=== PATIENT | male | born 1960 | race Caucasian/White ===

== ENCOUNTER 2024-07-20 10:43 | Outpatient (CLI) | payer MEDICARE, OTHER, SELFPAY ==
--- NOTE | ~2024-07-20 | XR_ITS ---
XR abdomen/kub 1V Ordering provider: Terrance Li MD History: . Calcium kidney stone . Comparison: None. FINDINGS: BOWEL: Nonobstructive bowel gas pattern. ORGANOMEGALY: None. SIGNIFICANT PATHOLOGIC CALCIFICATIONS: Multiple left kidney stones. OTHER: No free air is seen under the diaphragm. IMPRESSION: NO ACUTE ABDOMINAL FINDINGS. Left kidney stones. Reviewed, dictated and finalized at location A.
--- OUTSIDE RECORDS SUMMARY | 2024-07-20 11:08 | XMS_ITS | Data Portability ---
Author Organization [place] - [facility] OFFICE Address [address] [place] [id number] Care Team Providers Care Tube Test Technician Name Role Phone NORA PETTIT, [facility] Primary Care Provider [phone] Assessment No assessment recorded. Plan of Treatment Reminders Order Date Submit Date Provider Last Modified By Organization Details Last Modified Time Details Appointments ESTABLI SHED PATIENT DETAILE D 2024 02:00P M Pop Edwards i, MD Not available Not available Not available Lab None recorde d. Referral None recorde d. Procedures None recorde d. Surgeries None recorde d. Imaging electro cardiog kvng 2020 021 RADHA Not available 11/18/2020 16:31:16 electro cardiog kvng 2020 021 [email or web address] Not available 11/03/2020 15:48:11 Medication Orders rosuvas tatin 10 mg tablet 2022 023 [facility] [address] [place] [address], [id number], 05/29/2022 15:15:20 lisinop ril 20 mg tablet 2020 021 RADHA [facility], [address] [place] [address], [id number], 11/03/2020 16:03:15 pravast atin 80 mg tablet 2020 021 [facility] [address] [place] [address], [id number], 08/06/2023 16:15:01 Patient TargetsNo targets recorded. Patient Instructions Encounter Date Encounter Id Patient Instructions Last Modified By Organization Details Last Modified Time 11/03/2020 [id number] arthritis: care instructions [email or web address] Not available 11/03/2020 15:48:12 osteoarthritis: care instructions [email or web address] Not available 11/03/2020 15:48:11 high blood pressure: care instructions [email or web address] Not available 11/03/2020 15:48:12 learning about high blood pressure [email or web address] Not available 11/03/2020 15:48:11 heart murmur: care instructions [email or web address] Not available 11/03/2020 15:48:12 high cholesterol: care instructions [email or web address] Not available 11/03/2020 15:48:12 12/15/2022 [id number] Exercise advised Low cholesterol diet advised Low sodium diet advised. [email or web address] Not available 12/15/2022 14:17:34 08/06/2023 [id number] Exercise advised Low cholesterol diet advised Low sodium diet advised. [email or web address] Not available 08/06/2023 16:14:47 Reason for Referral None Reported. Results Created Date Observation Date Name Description Value Unit Range Abnormal Flag Note LastModifiedBy Organization Detail LastModifiedTime 11/04/1911/03/2020 elect rocmariposa escamillagr am No observ ation record ed. colleen Hawthorne0 [facility] [address], [place], [address], 11/18/2020 16:31:16 11/04/19 21 11/03/2020 elect sridhar roper am No observ ation record ed. colleen [address], [place], [address], 11/18/2020 18:13:10 12/09/19 21 11/03/2020 elect sridhar diogr am No observ ation record ed. [email or web address] Not Available 2020 10:45:59 12/09/19 21 11/03/2020 elect rocar diogr am No observ ation record ed. [email or web address] Not Available 2020 10:53:01 12/01/19 22 11/28/2021 elect rocar diogr am No observ ation record ed. [email or web address] Not Available 2021 14:58:39 12/27/19 22 12/18/2021 exerc rah reed s echoc ardio gram No observ ation record ed. [email or web address] Not Available 2021 13:18:41 05/31/19 23 05/29/2022 elect rocar diogr am No observ ation record ed. [email or web address] Not Available 2022 14:12:42 12/26/19 23 12/15/2022 elect rocar diogr am No observ ation record ed. [email or web address] Not Available 2022 15:11:48 08/08/19 24 08/06/2023 elect rocar diogr am No observ ation record ed. [email or web address] Not Available 12:18:22 Result Notes Documentation Provider Name and Address Organization Details Recorded Time Lipid Panel, Blood : 07/17/23:Na 143,K 4.1,CL 104,CO2 24,GLU 102,BUN 22,Cr 1.07,AST 15,ALT 19,CK 79. 07/17/23:TC 132,TG 43,HDL 56,LDL 66. Anahi chavarria [place] [facility] 07/18/2023 13:30:57 Problems Name Problem SNOMED Code Status Onset Date Resolution Date Notes Provider Name and Address Organization Details Recorded Time Heart murmur 41694869 Active 2015 Anahi chavarria [place] - [facility] 6 16:37:10 Hiatal hernia 97057290 Active 2015 Donna chavarria [place] [facility] 6 04:26:28 Gastroesophage al reflux disease 104201966 Active 2015 Anahi chavarria [place] [facility] 6 16:36:56 Benign prostatic hyperplasia 860469333 Active 2015 Donna chavarria [place] [facility] 6 04:26:43 Essential hypertension 89367805 Active 2015 Anahi chavarria [place] [facility] 6 16:37:03 [facility] 27107824 [facility] [place] 6 15:27:22 Osteoarthritis 660744614 [facility] [place] 8 15:14:33 Problem Notes None recorded. Procedures Surgical History Date Name Laterality Status Provider Name and Address Organization Details Recorded Time Removal of sperm duct(s) completed [facility] 10/16/2015 16:37:39 Fragmenting of kidney stone completed Christian [facility] 10/16/2015 16:37:52 Imaging Results Imaging Date Name Status LastModified by Organization Details LastModified Time 11/03/2020 electrocardiogram completed colleen Mancera MD [address] [facility] [address], [place], [address], 11/18/2020 16:31:16 11/03/2020 electrocardiogram completed colleen Mancera MD [address] [facility] [address], [place], [address], 11/18/2020 18:13:10 11/03/2020 electrocardiogram completed [email or web address] Informa tion not available 12/09/2020 10:45:59 11/03/2020 electrocardiogram completed [email or web address] Informa tion not available 12/09/2020 10:53:01 11/28/2021 electrocardiogram completed Informa tion not available 11/30/2021 14:58:39 12/18/2021 exercise stress echocardiogram completed [email or web address] Information not available 12/26/2021 13:18:41 05/29/2022 electrocardiogram completed Informa tion not available 2022 14:12:42 12/15/2022 electrocardiogram completed Informa tion not available 12/25/2022 15:11:48 08/06/2023 electrocardiogram completed [email or web address] Info rmation not available 08/08/2023 12:18:22 Procedure Notes None recorded. Medical Equipment None Reported. Allergies No known drug allergies Medications Name Sig Start Date Stop Date Status Note LastModified by Organization Details LastModified Time cyclobenza josephine 10 mg tablet active PRN Not Available Not Available No t Available pravastati n 40 mg tablet Take 1 tablet every day by oral route as directed for 1 day. 11/28 completed Not Available Not Available Not Available benzonatat e 200 mg capsule 11/28 completed Not Available Not Available Not Available hydrocodon e 5 mg-acetami nophen 325 mg tablet 11/27 completed pt. not taking Not Available Not Available Not Available lisinopril 20 mg tablet TAKE 1 TABLET BY MOUTH DAILY FOR BLOOD PRESSURE active Not Available Not Available No t Available Viagra 50 mg tablet Take 1 tablet every day by oral route as needed. 11/29 completed Not Available Not Available Not Available penicillin V potassium 500 mg tablet 11/28 completed pt. not taking Not Available Not Available Not Available Nexium 40 mg capsule,de layed release Take 1 capsule every day by oral route as directed for 90 days. 11/29 completed Not Available Not Available Not Available omeprazole 40 mg capsule,de layed release TAKE 1 CAPSULE BY MOUTH DAILY 30 TO 60 MINUTES BEFORE A MEAL active Not Available Not Available No t Available sildenafil 100 mg tablet 1 tab prn active Not Available Not Available No t Available ondansetro n 8 mg disintegra ting tablet 11/28 completed Not Available Not Available Not Available Nexium 20 mg capsule,de layed release Take 1 capsule every day by oral route. 11/01 completed Not Available Not Available Not Available Aspirin Low Strength 81 mg chewable tablet Chew 1 tablet every day by oral route. 08/04 completed Not Available Not Available Not Available pravastati n 80 mg tablet Take 1 tablet every day by oral route at bedtime. 08/05 completed Not Available Not Available Not Available tamsulosin 0.4 mg capsule TAKE 1 CAPSULE BY MOUTH EVERY DAY active Not Available Not Available No t Available pantoprazo le 40 mg tablet,del ayed release 1 tab qd 11/28 completed Not Available Not Available Not Available Gas Relief (simethico ne) 80 mg chewable tablet 11/28 completed Not Available Not Available Not Available lisinopril 10 mg tablet Take 1 tablet every day by oral route. 11/01 completed Not Available Not Available Not Available fluticason e propionate 50 mcg/actuat ion nasal spray,susp ension Inhale by nasal route for 30 days. active Not Available Not Available No t Available naproxen 500 mg tablet 11/01 completed PRN Not Available Not Available Not Available rosuvastat in 10 mg tablet TAKE 1 TABLET BY MOUTH DAILY FOR CHOLESTE ROL active Not Available Not Available No t Available [place] Sinus Rinse with packet 11/29 completed Not Available Not Available Not Available Mucinex D 60 mg-600 mg tablet,ext ended release 11/28 completed as needed Not Available Not Available Not Available Suprep Bowel Prep Kit 17.5 gram-3.13 gram-1.6 gram oral solution 11/28 completed Not Available Not Available Not Available Fluzone Quad 0157-3528 60 mcg (15 mcg x 4)/0.5 mL IM suspension 11/29 completed Not Available Not Available Not Available Fluzone Quad 60 mcg (15 mcg x 4)/0.5 mL IM suspension 11/28 completed Not Available Not Available Not Available Shingrix (PF) 50 mcg/0.5 mL intramuscu lar suspension , kit 11/27 completed Not Available Not Available Not Available Adult Aspirin Regimen 81 mg tablet,del ayed release Take 1 tablet every day by oral route. active Not Available Not Available No t Available Fluzone Quad 60 mcg (15 mcg x 4)/0.5 mL IM suspension 11/28 completed Not Available Not Available Not Available Afluria Quad 60 mcg (15 mcg x 4)/0.5 mL intramuscu lar susp. 11/28 completed Not Available Not Available Not Available Flublok Quad (PF) 180 mcg (45 mcg x 4)/0.5 mL IM syringe PHARMACY ADMINIST ERED 11/28 completed Not Available Not Available Not Available Vitals Date Recorded Body weight Heart rate Oxygen saturation Oxygen saturation in Arterial blood by Pulse oximetry Systolic blood pressure Diastolic blood pressure Provider Name and Address Organization Details Last Updated DateTime 1 38931.0 3 g 67 /min 97 % 97 % 122 mm[Hg] 61 mm[Hg] CIRSTINE JOHNSON [place] [facility] 1 12:41:02 Date Recorded Body height Body mass index (BMI) Body weight Heart rate Respiratory rate Oxygen saturation Oxygen saturation in Arterial blood by Pulse oximetry Systolic blood pressure Diastolic blood pressure Provider Name and Address Organization Details Last Updated DateTime 2 172.72 cm 25.8 kg/m2 63702.7 g 77 /min 16 /min 98 % 98 % 112 mm[Hg] 60 mm[Hg] Germán Jain [facility] 2 17:16:43 Date Recorded Body height Body mass index (BMI) Body weight Heart rate Respiratory rate Oxygen saturation Oxygen saturation in Arterial blood by Pulse oximetry Systolic blood pressure Diastolic blood pressure Provider Name and Address Organization Details Last Updated DateTime 3 172.72 cm 27.4 kg/m2 59273.6 3 g 69 /min 16 /min 97 % 97 % 124 mm[Hg] 82 mm[Hg] Germán Jain [facility] 3 14:59:59 Date Recorded Body height Body mass index (BMI) Body weight Heart rate Respiratory rate Oxygen saturation Oxygen saturation in Arterial blood by Pulse oximetry Systolic blood pressure Diastolic blood pressure Provider Name and Address Organization Details Last Updated DateTime 3 172.72 cm 26.5 kg/m2 75232.0 7 g 71 /min 16 /min 98 % 98 % 126 mm[Hg] 74 mm[Hg] Germán Jain [facility] 3 14:03:06 Date Recorded Body height Body mass index (BMI) Body weight Heart rate Oxygen saturation Oxygen saturation in Arterial blood by Pulse oximetry Systolic blood pressure Diastolic blood pressure Provider Name and Address Organization Details Last Updated DateTime 4 172.72 cm 27 kg/m2 63872.7 2 g 70 /min 98 % 98 % 112 mm[Hg] 68 mm[Hg] Cori Fall [facility] 4 15:56:28 Social History Question Answer Notes LastModified by Organizat ion Details LastModified Time Tobacco Smoking Status Never Smoker Not Available [facility] 01/12/2020 03:30:18 What Was The Date Of Your Most Recent Tobacco Screening? 11/29/2016 [id number] Information not available 01/12/2020 How Much Tobacco Do You Smoke? No [id number] Information not available 01/12/2020 How Many Years Have You Smoked Tobacco? 0 [id number] Information not available 01/12/2020 Sex: Unknown Functional Status Question Answer Note LastModified by Organizat ion Details LastModified Time Do you or have you ever used smokeless tobacco? Never used smokeless tobacco [id number] Information not available 01/12/2020 Do you or have you ever used e-cigarettes or vape? Never used electronic cigarettes [id number] Information not available 01/12/2020 Mental Status None recorded. Family History Relationship Description Onset Age of this Age Resolved Age Notes LastModified by Organization Details LastModified Time Mother Hypertensive disorder [email or web address] Not available 2015 16:41:37 Father Hypertensive disorder hmesto Not available 2015 16:41:43 Maternal Uncle Coronary arterioscler osis s/p PCI [email or web address] Not available 10/16/2015 16:42:13 Medical History Condition Response Genitourinary Disease Y Hypertension Y GERD/Reflux Y Past Encounters Encounter ID Performer Location Encounter Start Date Encounter Closed Date Diagnosis/Indication Diagnosis SNOMED-CT Code Diagnosis ICD10 Code Diagnosis Note [id number] Trenton Chávez MD [facility] [address] [place] [address] 11/02/2015 14:17:05 11/03/2015 11:00:56 Essential hypertension 91581284 I10 Patient's blood pressure is {{well-con trolled* n ot well-contr olled}} on present medical therapy. Patient is {{tolerati ng, without difficulty ,* having side effects with}} the current medication s. I have {{not made* made the following} } changes to the current regimen. {{ Patient is advised to maintain a blood pressure diary.*}} Cont low Na diet. Heart murmur 03325399 R0 1.1 pt had ECHO last year which showed trace MR and trace TR. Will repeat ECHO in one year. He does not need dental prophylaxi s. Hyperlipidemia 72972844 E78.5 Patient's hyperlipid emia is {{well-con trolled* n ot well-contr olled}} on present medical therapy. Patient is {{tolerati ng, without difficulty ,* having side effects with}} the current medication s. I have {{not made* made the following} } changes to the current regimen. Cont low cholestero l diet. [id number] Pop Farley MD [facility] [address] [place] [address] 11/29/2016 14:51:44 11/30/2016 09:51:37 Essential hypertension 86307557 I10 Patient's blood pressure is {{well-con trolled* n ot well-contr olled}} on present medical therapy. Patient is {{tolerati ng, without difficulty ,* having side effects with}} the current medication s. I have {{not made* made the following} } changes to the current regimen. {{ Patient is advised to maintain a blood pressure diary.*}} Cont low Na diet. Heart murmur 10190987 R0 1.1 His recent ECHO is similar as last year which showed trace MR and mild TR with borderline pulmonary pressure (PASP 35 mmHg).. Normal LV systolic function (LVEF 55-60%). Will repeat ECHO in two years. Hyperlipidemia 05171167 E78.5 Patient's hyperlipid emia is {{well-con trolled* n ot well-contr olled}} on present medical therapy. Patient is {{tolerati ng, without difficulty ,* having side effects with}} the current medication s. I have {{not made* made the following} } changes to the current regimen. Cont low cholestero l diet.Will repeat lipids [id number] Pop Fraley MD [facility] [place] [address] 11/28/2017 14:44:07 11/28/2017 15:37:16 Essential hypertension 61919712 I10 Patient's blood pressure is {{well-con trolled* n ot well-contr olled}} on present medical therapy. Patient is {{tolerati ng, without difficulty ,* having side effects with}} the current medication s. I have {{not made* made the following} } changes to the current regimen. {{ Patient is advised to maintain a blood pressure diary.*}} Cont low Na diet. Heart murmur 03835209 R0 1.1 His recent ECHO is similar as last year which showed trace MR and mild TR with borderline pulmonary pressure (PASP 35 mmHg).. Normal LV systolic function (LVEF 55-60%). Will repeat ECHO in two years. Hyperlipidemia 86794032 E78.5 Patient's hyperlipid emia is {{well-con trolled* n ot well-contr olled}} on present medical therapy. Patient is {{tolerati ng, without difficulty ,* having side effects with}} the current medication s. I have {{not made* made the following} } changes to the current regimen. Cont low cholestero l diet.Will repeat lipids [id number] Trenton Chávez MD [facility] [address] [place] [address] 11/27/2018 14:48:41 11/27/2018 15:56:52 Essential hypertension 49659349 I10 Patient's blood pressure is {{well-con trolled* n ot well-contr olled}} on present medical therapy. Patient is {{tolerati ng, without difficulty ,* having side effects with}} the current medication s. I have {{not made* made the following} } changes to the current regimen. {{ Patient is advised to maintain a blood pressure diary.*}} Cont low Na diet. Heart murmur 86719362 R0 1.1 His last ECHO is similar as last year which showed trace MR and mild TR with borderline pulmonary pressure (PASP 35 mmHg).. Normal LV systolic function (LVEF 55-60%). Will repeat ECHO in two years. Hyperlipidemia 72985612 E78.5 Patient's hyperlipid emia is {{well-con trolled* n ot well-contr olled}} on present medical therapy. Patient is {{tolerati ng, without difficulty ,* having side effects with}} the current medication s. I have {{not made* made the following} } changes to the current regimen. Cont low cholestero l diet. [id number] Jamila Costa MD [facility] [address] [place] [address] 11/02/2019 11:58:25 11/02/2019 12:33:21 Essential hypertension 36803160 I10 Patient's blood pressure is {{well-con trolled* n ot well-contr olled}} on present medical therapy. Patient is {{tolerati ng, without difficulty ,* having side effects with}} the current medication s. I have {{not made* made the following} } changes to the current regimen. {{ Patient is advised to maintain a blood pressure diary.*}} Cont low Na diet. Heart murmur 48210362 R0 1.1 His last ECHO is similar as last year which showed trace MR and mild TR with borderline pulmonary pressure (PASP 35 mmHg).. Normal LV systolic function (LVEF 55-60%).re peat echo before next visit Hyperlipidemia 39599619 E78.5 Patient's hyperlipid emia is {{well-con trolled* n ot well-contr olled}} on present medical therapy. Patient is {{tolerati ng, without difficulty ,* having side effects with}} the current medication s. I have {{not made* made the following} } changes to the current regimen. Cont low cholestero l diet. [id number] Trenton Chávez MD [facility] [address] [place] [address] 11/03/2020 12:07:20 11/03/2020 13:48:28 Essential hypertension 94451979 I10 Patient's blood pressure is {{well-con trolled* n ot well-contr olled}} on present medical therapy. Patient is {{tolerati ng, without difficulty ,* having side effects with}} the current medication s. I have {{not made* made the following} } changes to the current regimen. {{ Patient is advised to maintain a blood pressure diary.*}} Cont low Na diet. Hyperlipidemia 28740794 E78.5 Patient's hyperlipid emia is {{well-con trolled* n ot well-contr olled}} on present medical therapy. Patient is {{tolerati ng, without difficulty ,* having side effects with}} the current medication s. I have {{not made* made the following} } changes to the current regimen. Cont low cholestero l diet. Osteoarthritis 614061289 M19.90 Heart murmur 34719033 R0 1.1 His last ECHO is similar as last year which showed trace MR and mild TR with borderline pulmonary pressure (PASP 35 mmHg).. Normal LV systolic function (LVEF 55-60%).re peat echo before next visit [id number] Pop Farley MD [facility] [place] [address] 11/28/2021 16:55:40 11/28/2021 17:44:51 Essential hypertension 06662742 I10 Patient's blood pressure is {{well-con trolled* n ot well-contr olled}} on present medical therapy. Patient is {{tolerati ng, without difficulty ,* having side effects with}} the current medication s. I have {{not made* made the following} } changes to the current regimen. {{ Patient is advised to maintain a blood pressure diary.*}} Cont low Na diet. Hyperlipidemia 81613459 E78.5 Patient's hyperlipid emia is {{well-con trolled* n ot well-contr olled}} on present medical therapy. Patient is {{tolerati ng, without difficulty ,* having side effects with}} the current medication s. I have {{not made* made the following} } changes to the current regimen. Cont low cholestero l diet. Osteoarthritis 211507148 M19.90 Heart murmur 73228928 R0 1.1 His last ECHO is similar as last year which showed trace MR and mild TR with borderline pulmonary pressure (PASP 35 mmHg).. Normal LV systolic function (LVEF 55-60%).re peat echo before next visit Atypical chest pain 1025 41836 R07.89 Will get exercise stress echo, to look for any structural heart disease, and to look for any ischemia [id number] Pop Farley MD [facility] [place] [address] 05/29/2022 14:36:33 05/29/2022 15:19:02 Essential hypertension 54286842 I10 Now well controlled Hyperlipidemia 03063059 E78.5 LDL 91, Needs to keep LDL less than 70, and HDL more than 40.Will change to Crestor Osteoarthritis 482808731 M19.90 Heart murmur 43629272 R0 1.1 His last ECHO is similar as last year which showed trace MR and mild TR with borderline pulmonary pressure (PASP 35 mmHg).. Normal LV systolic function (LVEF 55-60%).re peat echo before next visit Atypical chest pain 1025 44322 R07.89 Negative stress echo. [id number] Pop Farley MD [facility] [address] [place] [address] 12/15/2022 13:51:38 12/15/2022 14:19:51 Essential hypertension 13765534 I10 Now well controlled Hyperlipidemia 54039417 E78.5 LDL 91, Needs to keep LDL less than 70, and HDL more than 40.Will change to Crestor Osteoarthritis 670795929 M19.90 Heart murmur 26091626 R0 1.1 His last ECHO is similar as last year which showed trace MR and mild TR with borderline pulmonary pressure (PASP 35 mmHg).. Normal LV systolic function (LVEF 55-60%).re peat echo before next visit Atypical chest pain 1025 88291 R07.89 Negative stress echo. No recurrence [id number] Pop Farley MD [facility] [address] [place] [address] 08/06/2023 15:40:48 08/06/2023 16:18:10 Essential hypertension 56014518 I10 Now well controlled Hyperlipidemia 53501236 E78.5 LDL 91, Needs to keep LDL less than 70, and HDL more than 40.Will change to Crestor Osteoarthritis 300027783 M19.90 Heart murmur 60547046 R0 1.1 His last ECHO is similar as last year which showed trace MR and mild TR with borderline pulmonary pressure (PASP 35 mmHg).. Normal LV systolic function (LVEF 55-60%).re peat echo before next visit Atypical chest pain 1025 00080 R07.89 Negative stress echo. No recurrence Health Concerns Section Related Observation LastModified by Organization Detai ls LastModified Time None Recorded Concern Status LastModified by Organization Details LastModified Time None Recorded Advance Directives Directive None Recorded Payers Insurance Date Sequence Insurance Name Policy Number Policy English Covered Member ID English Member ID Guarantor Name 06/27/2023 3 [employer] - [employer] - PRIME () Cy Manzo Paez [id number] Cy Mirandarison 07/10/2024 2 [employer] - FOR LIFE (MEDICARE SUPPLEMENT) Cy Manzo Paez [id number] Cy Manzo Paez 07/10/2024 1 [place] Cy Manzo Paez [id number] Cy Manzo Paez 12/18/2021 1 [facility] Cy Paez [id number] Cy Paez Notes Date Note Type Note Provider Name and Address Organization Details Recorded Time 11/03/2020 text/html 11/03/20 CC: Heart murmur fu HPI: 60 y/o White Man with past medical history of HTN, BPH, GERD, hiatal hernia and heart murmur is here for follow-up. Pt was here last time about a year ago. 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 No CP, SOB or palpitations. BP well controlled per pt previously he had epigastric symptoms occasionally due to his GERD. it has not changed. Pt had EGD in the past. Was told to have gastritis. He is still very active and tolerates physical activity well. No CP, SOB or palpitations. 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 He does not need to use Viagra anymore. States that his blood pressure is well controlled. Had Negative stress test done in 10/06/14 , EF 60%.Had ECHO done in 09/17/14 showed normal Left Ventricular Systolic Function , EF 55-60% . Had heart murmur. 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 . Have been fairly active Reported. Frequent physical activity with grass cutting without problems.No chest pain. No shortness of breath at rest. Reported dyspnea on exertion . No orthopnea. No PND's . No dizziness. No palpitation. No syncope or nearsyncope. No leg swelling.No nausea and vomiting. No major bleeding events.No side effects from medications.2000 treadmill stress test leela Results from this visit, or from the past:11/21/18 CBC: WBC 6.4, HGB 13.9, HCT 41.1, PLT 8487411/21/18 CMP: NA 143, K 4.6, CL 106, CO2 29, GLU 93, BUN 21, CR 1.10, AST 14, ALT LIPID: T 144, TR 63, HDL 43, LDL 86 11/25/17: Na 141, K 4.8 ,CL 105 ,CO2 28,GLU 92, BUN 19 ,CR 1.10 ,AST22 ,ALT35 , lipid panel, blood 11-25-2017 11/25/17: TC 183 ,TG 110 ,HDL 50 ,LDL 121, 09/30/15 :TC 148 ,TG 51 ,HDL 45 ,LDL 90 , 08-27-14 SOD 143, K 4.6, CL 106, Co 225, GLU 97, BUN 24.1, CR 0.87 EKG (11/03/20): NSR, RBBB, NSST changes 11/26/18 EKG: normal sinus rhthm within normal limitsEKG (11/28/18): NSR, nonspecific IVCD, NSST changesEKG (11/29/16): NSR, poor R progression, NSST changes EKG (11/29/16): NSR, nonspecific IVCD, NSST changes EKG (11/02/15): NSR, nonspecific IVCD, NSST changes 11/19/16 ECHO: Study quality: Technically difficult. LV chamber size is normal. LV wall thickness is normal. There is normal global systolic function and contractility. The estimated left ventricle ejection fraction is 55-60% (normal). Mild elevation of estimated RV systolic pressure. Compared to echo 09/17/14, no significant change. Trenton Chávez [place], [place] - [facility] 11/03/2020 15:48:17 11/28/2021 text/html 11/28/21CC : [facility] up[facility]PI: 61 y/o White Man with past medical history of HTN, BPH, GERD, hiatal hernia and heart murmur is here for 1 year follow-up. He was last seen in the clinic on 11/03/20, since then he feels OKHe denies ER visits and hospitalizations since he was last seen. He gets occasional chest pain.Denies shortness of breath at rest. Has mild dyspnea on exertion.No orthopnea. No PNDs.Denies heart palpitations.Denies dizziness. Denies syncope or near syncope.No ankle or leg edema.No major bleeding events.No reported side effects from medications. Taking medications as prescribed with no missed doses.Denies snoring, daytime somnolence and AM headache.*Last LDL was 98 done on 10/31/20 .Pt takes pravastatin 80 mg. 11/03/20:WBC 6.6,RBC 4.4,PLT 230. PreviouslyHe is pretty active since owns [employer] .denies any symptoms. No CP, SOB or palpitations. previously he had epigastric symptoms occasionally due to his GERD. it has not changed. Pt had EGD in the past. Was told to have gastritis. He is still very active and tolerates physical activity well. He does not need to use Viagra anymore. Had Negative stress test done in 10/06/14 , EF 60%. Had ECHO done in 09/17/14 showed normal Left Ventricular Systolic Function , EF 55-60% . Had heart murmur. 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 . Have been fairly active Reported. Frequent physical activity with grass cutting without problems. Results from this visit, or from the past:11/21/18 CBC: WBC 6.4, HGB 13.9, HCT 41.1, PLT 71566 CMP: NA 143, K 4.6, CL 106, CO2 29, GLU 93, BUN 21, CR 1.10, AST 14, ALT LIPID: T 144, TR 63, HDL 43, LDL 86 11/25/17: Na 141, K 4.8 ,CL 105 ,CO2 28,GLU 92, BUN 19 ,CR 1.10 ,AST22 ,ALT35 , lipid panel, blood 11-25-2017 11/25/17: TC 183 ,TG 110 ,HDL 50 ,LDL 121, 09/30/15 :TC 148 ,TG 51 ,HDL 45 ,LDL 90 , 08-27-14 SOD 143, K 4.6, CL 106, Co 225, GLU 97, BUN 24.1, CR 0.87 EKG (11/03/20): NSR, RBBB, NSST changes 11/26/18 EKG: normal sinus rhthm within normal limitsEKG (11/28/18): NSR, nonspecific IVCD, NSST changesEKG (11/29/16): NSR, poor R progression, NSST changes EKG (11/29/16): NSR, nonspecific IVCD, NSST changes EKG (11/02/15): NSR, nonspecific IVCD, NSST changes 11/19/16 ECHO: Study quality: Technically difficult. LV chamber size is normal. LV wall thickness is normal. There is normal global systolic function and contractility. The estimated left ventricle ejection fraction is 55-60% (normal). Mild elevation of estimated RV systolic pressure. Compared to echo 09/17/14, no significant change. Pop Farley MD [address] [place], [address], [facility] - [facility] 11/28/2021 17:36:22 05/29/2022 text/html 05/29/22CC : Car diac follow up, dyspnea on exertionHPI: 61 y/o White Man with past medical history of HTN, BPH, GERD, hiatal hernia and heart murmur is here for 6 month follow-up. Negative stress echo. He was last seen in the clinic on 11/03/20, since then he feels OKHe denies ER visits and hospitalizations since he was last seen. He gets occasional chest pain.Denies shortness of breath at rest. Has mild dyspnea on exertion.No orthopnea. No PNDs.Denies heart palpitations.Denies dizziness. Denies syncope or near syncope.No ankle or leg edema.No major bleeding events.No reported side effects from medications. Taking medications as prescribed with no missed doses.Denies snoring, daytime somnolence and AM headache.*Last LDL was 98 done on 10/31/20 .Pt takes pravastatin 80 mg. 11/03/20:WBC 6.6,RBC 4.4,PLT 230. PreviouslyHe is pretty active since owns [employer] .denies any symptoms. No CP, SOB or palpitations. previously he had epigastric symptoms occasionally due to his GERD. it has not changed. Pt had EGD in the past. Was told to have gastritis. He is still very active and tolerates physical activity well. He does not need to use Viagra anymore. Had Negative stress test done in 10/06/14 , EF 60%. Had ECHO done in 09/17/14 showed normal Left Ventricular Systolic Function , EF 55-60% . Had heart murmur. 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 . Have been fairly active Reported. Frequent physical activity with grass cutting without problems. Results from this visit, or from the past:11/21/18 CBC: WBC 6.4, HGB 13.9, HCT 41.1, PLT 34549 CMP: NA 143, K 4.6, CL 106, CO2 29, GLU 93, BUN 21, CR 1.10, AST 14, ALT LIPID: T 144, TR 63, HDL 43, LDL 86 11/25/17: Na 141, K 4.8 ,CL 105 ,CO2 28,GLU 92, BUN 19 ,CR 1.10 ,AST22 ,ALT35 , lipid panel, blood 11-25-2017 11/25/17: TC 183 ,TG 110 ,HDL 50 ,LDL 121, 09/30/15 :TC 148 ,TG 51 ,HDL 45 ,LDL 90 , 08-27-14 SOD 143, K 4.6, CL 106, Co 225, GLU 97, BUN 24.1, CR 0.87 EKG (11/03/20): NSR, RBBB, NSST changes 11/26/18 EKG: normal sinus rhthm within normal limitsEKG (11/28/18): NSR, nonspecific IVCD, NSST changesEKG (11/29/16): NSR, poor R progression, NSST changes EKG (11/29/16): NSR, nonspecific IVCD, NSST changes EKG (11/02/15): NSR, nonspecific IVCD, NSST changes 11/19/16 ECHO: Study quality: Technically difficult. LV chamber size is normal. LV wall thickness is normal. There is normal global systolic function and contractility. The estimated left ventricle ejection fraction is 55-60% (normal). Mild elevation of estimated RV systolic pressure. Compared to echo 09/17/14, no significant change. Pop Farley MD [address] [place], [address], [facility] - [facility] 05/29/2022 15:15:31 12/15/2022 text/html 12/15/22CC : Car diac follow up, dyspnea on exertionHPI: 62 y/o White Man with past medical history of HTN, BPH, GERD, hiatal hernia and heart murmur is here for 6 month follow-up with labs results. He was last seen in the clinic on 11/03/20, since then he feels OKHe denies ER visits and hospitalizations since he was last seen. He gets occasional chest pain.Denies shortness of breath at rest. Has mild dyspnea on exertion.No orthopnea. No PNDs.Denies heart palpitations.Denies dizziness. Denies syncope or near syncope.No ankle or leg edema.No major bleeding events.No reported side effects from medications. Taking medications as prescribed with no missed doses.Denies snoring, daytime somnolence and AM headache.*Last LDL was 98 done on 10/31/20 .Pt takes pravastatin 80 mg. 05/29/2022 CMP-GL 118 BUN 22 CR 1.10 NA 137 K 4.1 CA 9.1 , LIPID-CHOL 148 TRIG 56 HDL 48 LDL 91 Previously:He had negative SE. He is pretty active since owns [employer] .denies any symptoms. No CP, SOB or palpitations. previously he had epigastric symptoms occasionally due to his GERD. it has not changed. Pt had EGD in the past. Was told to have gastritis. He is still very active and tolerates physical activity well. He does not need to use Viagra anymore. Had Negative stress test done in 10/06/14 , EF 60%. Had ECHO done in 09/17/14 showed normal Left Ventricular Systolic Function , EF 55-60% . Had heart murmur. 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 . Have been fairly active Reported. Frequent physical activity with grass cutting without problems. Results from this visit, or from the past:11/21/18 CBC: WBC 6.4, HGB 13.9, HCT 41.1, PLT 79232 CMP: NA 143, K 4.6, CL 106, CO2 29, GLU 93, BUN 21, CR 1.10, AST 14, ALT LIPID: T 144, TR 63, HDL 43, LDL 86 11/25/17: Na 141, K 4.8 ,CL 105 ,CO2 28,GLU 92, BUN 19 ,CR 1.10 ,AST22 ,ALT35 , lipid panel, blood 11-25-2017 11/25/17: TC 183 ,TG 110 ,HDL 50 ,LDL 121, 09/30/15 :TC 148 ,TG 51 ,HDL 45 ,LDL 90 , 08-27- SOD 143, K 4.6, CL 106, Co 225, GLU 97, BUN 24.1, CR 0.87 EKG (11/03/20): NSR, RBBB, NSST changes 11/26/18 EKG: normal sinus rhthm within normal limitsEKG (11/28/18): NSR, nonspecific IVCD, NSST changesEKG (11/29/16): NSR, poor R progression, NSST changes EKG (11/29/16): NSR, nonspecific IVCD, NSST changes EKG (11/02/15): NSR, nonspecific IVCD, NSST changes 11/19/16 ECHO: Study quality: Technically difficult. LV chamber size is normal. LV wall thickness is normal. There is normal global systolic function and contractility. The estimated left ventricle ejection fraction is 55-60% (normal). Mild elevation of estimated RV systolic pressure. Compared to echo 09/17/14, no significant change. Pop Farley MD [address] [place], [address], [facility] - [facility] 12/15/2022 14:17:46 08/06/2023 text/html 08/06/23CC : Car diac follow up, dyspnea on exertionHPI: 63 y/o White Man with past medical history of HTN, BPH, GERD, hiatal hernia and heart murmur is here for 6 month follow-up with labs results. He was last seen in the clinic on 12/15/22, since then he feels OK He gets occasional chest pain.Denies shortness of breath at rest. Has mild dyspnea on exertion.No orthopnea. No PNDs.Denies heart palpitations.Denies dizziness. Denies syncope or near syncope.No ankle or leg edema.No major bleeding events.No reported side effects from medications. Taking medications as prescribed with no missed doses.Denies snoring, daytime somnolence and AM headache.*Last LDL was 66 done on 07/16/23 .Pt takes pravastatin 80 mg. 07/17/23:Na 143,K 4.1,CL 104,CO2 24,GLU 102,BUN 22,Cr 1.07,AST 15,ALT 19,CK 79.07/17/23:TC 132,TG 43,HDL 56,LDL 66. Previously:He had negative SE. He is pretty active since owns [employer] .denies any symptoms. No CP, SOB or palpitations. previously he had epigastric symptoms occasionally due to his GERD. it has not changed. Pt had EGD in the past. Was told to have gastritis. He is still very active and tolerates physical activity well. He does not need to use Viagra anymore. Had Negative stress test done in 10/06/14 , EF 60%. Had ECHO done in 09/17/14 showed normal Left Ventricular Systolic Function , EF 55-60% . Had heart murmur. 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 . Have been fairly active Reported. Frequent physical activity with grass cutting without problems. Results from this visit, or from the past:11/21/18 CBC: WBC 6.4, HGB 13.9, HCT 41.1, PLT 12764 CMP: NA 143, K 4.6, CL 106, CO2 29, GLU 93, BUN 21, CR 1.10, AST 14, ALT LIPID: T 144, TR 63, HDL 43, LDL 86 11/25/17: Na 141, K 4.8 ,CL 105 ,CO2 28,GLU 92, BUN 19 ,CR 1.10 ,AST22 ,ALT35 , lipid panel, blood 11-25-2017 11/25/17: TC 183 ,TG 110 ,HDL 50 ,LDL 121, 09/30/15 :TC 148 ,TG 51 ,HDL 45 ,LDL 90 , 08-27-14 SOD 143, K 4.6, CL 106, Co 225, GLU 97, BUN 24.1, CR 0.87 EKG (11/03/20): NSR, RBBB, NSST changes 11/26/18 EKG: normal sinus rhthm within normal limitsEKG (11/28/18): NSR, nonspecific IVCD, NSST changesEKG (11/29/16): NSR, poor R progression, NSST changes EKG (11/29/16): NSR, nonspecific IVCD, NSST changes EKG (11/02/15): NSR, nonspecific IVCD, NSST changes 11/19/16 ECHO: Study quality: Technically difficult. LV chamber size is normal. LV wall thickness is normal. There is normal global systolic function and contractility. The estimated left ventricle ejection fraction is 55-60% (normal). Mild elevation of estimated RV systolic pressure. Compared to echo 09/17/14, no significant change. Pop Farley MD [address] [place], [address], [facility] - [facility] 08/06/2023 16:15:21
--- OUTSIDE RECORDS SUMMARY | 2024-07-20 11:08 | XMS_ITS | Clinical Summary ---
Author Organization [facility] Address [address] [place] [id number] Care Team Providers Care Tool Maker Bench Name Role Phone Unavailable Primary Care Provider Unavailabl e Social History Tobacco Use Types Packs/Day Years Used Date Smoking Tobacco: Never Assessed Sex and Gender Information Value Date Recorded Sex Assigned at Not on file Legal Sex Male 2:10 PM CDT Gender Identity Not on file Sexual Orientation Not on file Plan of Treatment Health Maintenance Due Date Last Done Comments Colorectal Cancer Screening Colonoscopy (10 Years) 1958 Hepatitis C 1976 DTaP, Tdap and Td Vaccines ( 1 - Tdap) 1977 Pneumococcal Vaccine: 50+ Ye ars (1 of 1 - PCV) 2008 Zoster Vaccines (1 of 2) 2008 COVID-19 Vaccine ( - 2023-2 5 season) 2023 RSV Immunization or 60+ Years (1 - 1-dose 75+ series) 2033 Meningococcal B Vaccine Aged Out No l onger eligible based on patient's age to complete this topic Meningococcal Vaccine Aged Out No nichelle cate eligible based on patient's age to complete this topic RSV Immunizations Under 20 Months Aged Out No longer eligible based on patient's age to complete this topic
--- OUTSIDE RECORDS SUMMARY | 2024-07-20 11:09 | XMS_ITS | Continuity of Care Document ---
Author Name [facility] Organization [facility] Care Team Providers Care Holistic Pulser Name Role Phone [facility] Unavailable Unavailable Problems Combined list of problems from Department of Defense and Veterans Affairs facilities. It does not include entries that were removed or entered in error. Problem Status Onset Date Problem Type Date of Resolution Comments Source HTN - Hypertension Active 07/07/19 25 Diagnosis [facility]Af- C[facility] HLD - Hyperlipidemia Active 07/07/19 25 Diagnosis [facility]- C[facility] Cardiac murmur, unspecified Active 11/20/19 18 Condition [facility] URINARY CALCULUS Active Condition DoD visit for: issue repeat prescription for medication Inactive Condition DoD Outpatient Physician Consultation Active Condition DoD [place] Active Condition DoD skin: a rash [as Sx] Active Condition DoD Macules And Papules Inactive Condition DoD Vaccines Prophylactic Need Against Combinations Of Diseases Inactive Condition DoD visit for: occupational health / fitness exam Active Condition DoD visit for: issue repeat prescription Inactive Condition DoD Laboratory Studies Inactive Condition Do D ALLERGIC RHINITIS Active Condition DoD SINUSITIS ACUTE Inactive Condition DoD visit for: refer patient without exam or treatment Active Condition DoD Vaccines Prophylactic Need Against DTP Active Condition DoD NORMAL ROUTINE HISTORY AND PHYSICAL Active Condition - Pt with leela l physical exam.- Will check labs requested by pt job.- Pt to package pick up paperwork in clinic next week.- Case discussed with Dr. Bowers. DoD BENIGN PROSTATIC HYPERTROPHY Active Condition Referral to Dr Rivera and uroxtrol, and finasteride. Sx controlled DoD visit for: administrative purpose Inactive Condition DoD PRESBYOPIA Active Condition DoD REFRACTIVE ERROR - MYOPIA Active Condition DoD ASTIGMATISM - REGULAR Active Condition DoD HYPERTENSION (SYSTEMIC) Active Condition To continue wit h lisinopril, uroxatrol additive benefit. BP at home excellent. RTC Qy. DoD visit for: [employer] flight physical Inactive Condition EKG done (unchanged from 2004). will check labs and have pt f/u for HTN DoD DERMATOPHYTOSIS NAILS ONYCHOMYCOSIS Inactive Condition Improving on 3 month course of Lamisil. Will check CMP when course complete in a few weeks. If needed, will consider a second course of therapy. 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 Noted known heart murmur on exam - has been previously worked up with an echo. Pt will come back in 1 month for further f/u of his onychomycosis on Lamisil dinesh DoD DERMATOPHYTOSIS ONYCHOMYCOSIS TOENAILS Inactive Condition Confirmed positive. WIll order Lamisil. Prior auth submitted. DoD CLOSED FRACTURE RIGHT 5TH TOE PROXIMAL PHALANX Active Condition Re-eval tami ms. If ok, will d/c. DoD Vaccines Prophylactic Need Against Influenza Inactive Condition DoD HYPERLIPIDEMIA Active Condition defer intervention as previous ldl wnl but will check lipid panel DoD ESOPHAGEAL REFLUX Active Condition Co ntinue zantac. Will refer for colonoscopy. DoD ESSENTIAL HYPERTENSION Active Condition Walk-in today for BP check, 126/74 today. Will complete at least 2 more checks to complete paperwork. DoD PULMONARY VALVE REGURGITATION Active Condition note written f or FAA of condition. [facility] Medications Combined list of outpatient medications from Department of Defense and Veterans Affairs facilities.Medications provided include 1) outpatient medications from the last 15 months, and 2) patient-reported medications. Medication Details Route Status Patient Instructions Prescription Expires Prescription Number Last Dispense Date Ordering Provider Order Date Order Qty Source aspirin 81 mg oral delayed release tablet 1 tab(s), Oral, Daily, # 90 tab(s), 0 total refill(s ), Maintena nce Oral (given by mouth) Ordered 2024 90.0 6130C-A f-C-375 Th [facility] LISINOPRIL (lisinopril ), 20 MG, TABLET, ORAL, LUPIN PHARMACEU, 1000 ea. BOTTLE Active [id number] 4 2023 90 Pharmac y [facility] Trans[employer] t[employer] Service Facilit y LISINOPRIL (lisinopril ), 20 MG, TABLET, ORAL, LUPIN PHARMACEU, 1000 ea. BOTTLE Active [id number] 4 2023 90 Pharmac y [employer] Trans[employer] t[employer] Service Facilit y lisinopril 20 mg oral tablet 1 tab(s), Oral, Daily, for blood pressure , # 90 tab(s), 3 total refill(s ), [facility], Pharmacy : [facility] #[id number] Oral (given by mouth) Ordered 2024 90.0 6[facility]-A f-C-[facility] lisinopril 20 mg oral tablet 1 tab(s), Oral, Daily, for blood pressure , # 30 tab(s), 0 total refill(s ), [facility], Pharmacy : [facility] #[id number] Oral (given by mouth) Complet ed 07/06/20242024 30.0 6130C-A f-C-375 [facility] lisinopril 20 mg oral tablet 1 tab(s), Oral, Daily, for blood pressure , # 90 tab(s), 3 total refill(s ), [facility], Pharmacy : [facility] #[id number] Oral (given by mouth) Complet ed 05/29/20242024 90.0 6130C-A f-C-375 Th [facility] lisinopril 20 mg tablet See Instruct ions, # 90 EA, 3 total refill(s ), Acute Complet ed 05/22/2023 3 2023 90.0 Ambulat ory Pharmac y OMEPRAZOLE (OMEPRAZOLE ), 40 MG, CAPSULE DR, ORAL, ZYDUS PHARMACEU, 1000 ea. BOTTLE Active [id number] 4 2023 90 Pharmac y [employer] t[employer] [facility] y OMEPRAZOLE (OMEPRAZOLE ), 40 MG, CAPSULE DR, ORAL, ZYDUS PHARMACEU, 1000 ea. BOTTLE Active [id number] 4 2023 90 Pharmac y [employer] t[employer] Service Facilit y omeprazole 40 mg oral delayed release capsule 1 cap(s), Oral, Daily, 30 to 60 minutes before a meal, # 90 cap(s), 3 total refill(s ), [facility], Pharmacy : [facility] #[id number] Oral (given by mouth) Ordered 2024 90.0 6130[facility]-A f-C-375 [facility] omeprazole 40 mg oral delayed release capsule 1 cap(s), Oral, Daily, 30 to 60 minutes before a meal, # 90 cap(s), 3 total refill(s ), [facility], Pharmacy : [facility] #[id number] Oral (given by mouth) Complet ed 05/14/20242024 90.0 [facility]A f-C[facility] omeprazole DR 40 mg capsule 40 mg, See dose instruct ions in comments , # 90 EA, 3 total refill(s ), Acute Complet ed 05/22/2023 3 2023 90.0 Ambulat ory Pharmac y pravastatin 80 mg oral tablet TAKE ONE TABLET BY MOUTH EVERY DAY AT BEDTIME, # 90 EA, 2 total refill(s ), Acute Complet ed 01/01/2023 3 2022 90.0 Ambulat ory Pharmac y rosuvastati n 10 mg oral tablet 1 tab(s), Oral, Daily, for choleste rol, # 90 tab(s), 3 total refill(s ), Maintena pre, Pharmacy : [facility] #[id number] Oral (given by mouth) Ordered 2024 90.0 6130C-A f-C-375 [facility] rosuvastati n 10 mg oral tablet 1 tab(s), Oral, Daily, for choleste rol, # 30 tab(s), 0 total refill(s ), [facility], Pharmacy : [facility] #[id number] Oral (given by mouth) Complet ed 07/06/20242024 30.0 6130C-A f-C-375 [facility] rosuvastati n 10 mg oral tablet 1 tab(s), Oral, Daily, for choleste rol, # 90 tab(s), 3 total refill(s ), [facility], Pharmacy : [facility] #[id number] Oral (given by mouth) Complet ed 05/29/20242024 90.0 6130[facility]A f-C[facility] rosuvastati n 10 mg tablet See dose instruct ions in comments , # 90 EA, 3 total refill(s ), Acute Complet ed 05/28/2023 4 2023 90.0 Ambulat ory Pharmac y ROSUVASTATI N CALCIUM (rosuvastat in calcium), 10 MG, TABLET, ORAL, CAMBER PHARMACE, 90 ea. BOTTLE Active [id number] 4 2023 90 Pharmac y [facility] [employer] [facility] [facility]ilit y tamsulosin 0.4 mg capsule See Instruct ions, Oral, Daily, # 90 EA, 3 total refill(s ), [facility] Oral (given by mouth) Complet ed 09/05/2023 4 2023 90.0 Ambulat ory Pharmac y tamsulosin 0.4 mg oral capsule 1 cap(s), Oral, Daily, # 90 cap(s), 0 total refill(s ), Maintena nce Oral (given by mouth) Ordered 2024 90.0 6130C-A f-C-375 Th Jan Johnson Viagra 100 mg oral tablet 1 tab(s), Oral, As Directed , take 1 hour before sexual activity , no more than 1 dose per 24 hours, # 18 tab(s), 0 total refill(s ), Maintena nce, *[facility] max of 18 doses per 90 days* Oral (given by mouth) Ordered 2024 18.0 6130C-A f-C-375 Th Jan Johnosn Allergies, Adverse Reactions, Alerts Combined list of allergies from Department of Defense and Veterans Affairs facilities. It does not include entries that were removed or entered in error. Substance Category Reaction Severity Reaction type Status Date Reported Comments Source NO OUTPUT FOR NCID [id number] Drug allergy (disorder) active 10/20/2007 [facility] [place] Immunizations Combined list of available immunizations from the Department of Defense and Veterans Affairs facilities. Immunization Series Date Given Administered By Site Reaction Lot Number CVX Code Drug Senior Procurement Manager Status Comments Source COVID-19 vaccine(Comir jacey 12y+) 2024 LANIOBMARJORIE 309 complet ed Result Comment: Route: Unknown Manufactu rer: OTH (PFR) 6130C-A f-C-375 Th Jan Johnson influenza, seasonal,high dose-pf 2023 JAMESRBOBCO 135 complet ed Result Comment: Route: Unknown Manufactu rer: OT (PMC) 6130C-A f-C-375 [facility] COVID-19 vaccine(Norman vax 12y+) 2022 JAMESRBOBCO 312 complet ed Result Comment: Route: Unknown Manufactu rer: OT (MOD) 6130C-A f-C-375 Th [facility] RSV vaccine, preF A-preF B, recombinant 2022 JAMESRBOBCO 305 complet ed Result Comment: Route: Unknown Manufactu rer: OT (PFR) 6130C-A f-C-375 [facility] Influenza, inj, MDCK, quadrivalent- pf 2022 JAMESRBOBCO 171 complet ed Result Comment: Route: Unknown Manufactu rer: OT (SEQ) 6130C-A f-C-375 Th [facility] influenza, injectable, quadrivalent- pf 2021 JAMESRBOBCO 150 complet ed Result Comment: Route: Unknown Manufactu rer: OT (PMC) 6130C-A f-C-375 Th [facility] COVID-19 vaccine(Pfize r Bival 12yr+) 2021 JAMESRBOBCO 300 complet ed Result Comment: Route: Unknown Manufactu rer: OT (PFR) 6130C-A f-C-375 Th [facility] COVID Vaccine Moderna 2020 JAMESRBOBCO 207 complet ed Result Comment: Unit: Unknown Manufactu rer: Moderna US, Inc. (MOD) 6130C-A f-C-375 Th [facility] COVID-19, mRNA, LNP-S, PF, 100 mcg or 50 mcg dose 2020 SHANA, Moderna [employer], Inc. (MOD) Not Given COVID-19, mRNA, LNP-S, PF, 100 mcg or 50 mcg dose DoD influenza, injectable, quadrivalent- pf 2020 JAMESRBOBCO 150 complet ed Result Comment: Unit: Unknown Manufactu rer: () 6130C-A f-C-375 Th [facility] influenza, injectable, quadrivalent, preservative free 2020 KIRSTIE LANDERS () Not Given influenza , injectabl e, quadrival ent, preservat brandon free DoD COVID Vaccine Moderna 2020 JAMESRBOBCO 207 complet ed Result Comment: Unit: Unknown Manufactu rer: () 6130C-A f-C-375 Th [facility] COVID-19, mRNA, LNP-S, PF, 100 mcg or 50 mcg dose 2020 ALUL,RUSHDI () Not Given COVID-19, mRNA, LNP-S, PF, 100 mcg or 50 mcg dose DoD COVID Vaccine Moderna 2020 JAMESRBOBCO 207 complet ed Result Comment: Unit: Unknown Manufactu rer: () 30C-A -C-375 [facility] COVID-19, mRNA, LNP-S, PF, 100 mcg or 50 mcg dose 2020 ALUL,RUSHDI () Not Given COVID-19, mRNA, LNP-S, PF, 100 mcg or 50 mcg dose DoD influenza virus vaccine, inactivated 2019 JAMESRBOBCO 88 complet ed Result Comment: Unit: Unknown Manufactu rer: () 30C-A -C-375 [facility] influenza, recombinant, quadrivalent, injectable, preservative free 2019 ALUL, () Not Given influenza , recombina nt, quadrival ent,injec table, preservat brandon free DoD influenza, injectable, quadrivalent- pf 2018 150 [employer] complet ed influenza , injectabl e, quadrival ent-pf 11/29/18 Given Ambulat ory Pharmac y zoster vaccine, inactivated 2018 JAMESRBOBCO 187 complet ed Result Comment: Unit: Unknown Manufactu rer: () 6130C-A -C-375 [facility] zoster recombinant 2018 OTILIA NAVARRO () Not Given zoster recombina nt DoD zoster vaccine, inactivated 2017 [id number] complet ed zoster vaccine, inactivat ed 02/25/18 Given Ambulat ory Pharmac y zoster vaccine recombinant 1 2017 Unknown, Provider [id number] Transcribed (TRS) complet ed zoster vaccine recombina nt DoD zoster vaccine, inactivated 2017 JAMESRBOBCO 187 complet ed Result Comment: Unit: Unknown Manufactu rer: () 6130C-A -C-375 [facility] zoster recombinant 2017 OTILIA NAVARRO () Not Given zoster recombina nt DoD influenza, injectable, quadrivalent- pf 2017 150 sanofi pasteur complet ed influenza , injectabl e, quadrival ent-pf 01/24/18 Given Ambulat ory Pharmac y measles/mumps /rubella virus vaccine 2017 zzLef t Arm [id number] Merck & Company Inc complet ed measles/m umps/rube lla virus vaccine 05/10/17 Given Ambulat ory Pharmac y measles, mumps and rubella virus vaccine 1 2017 Unknown, Provider [id number] Merck (MSD) complet ed measles, mumps and rubella virus vaccine DoD influenza, injectable, quadrivalent- pf 2015 150 sanofi pasteur complet ed influenza , injectabl e, quadrival ent-pf 01/23/16 Given Ambulat ory Pharmac y influenza, injectable, quadrivalent 2015 JAMESRBOBCO 158 complet ed Result Comment: Unit: Unknown Manufactu rer: () 6130C-A -C-375 [facility] influenza, injectable, quadrivalent 2015 ELADIA NEELY () Not Given influenza , injectabl e, quadrival ent DoD influenza, injectable, quadrivalent- pf 2014 150 sanofi pasteur complet ed influenza , injectabl e, quadrival ent-pf 01/06/15 Given Ambulat ory Pharmac y influenza, injectable, quadrivalent 2013 JAMESRBOBCO 158 complet ed Result Comment: Unit: Unknown Manufactu rer: () 6130C-A f-C-375 [facility] influenza, injectable, quadrivalent 2013 LEOBARDO NEELY () Not Given influenza , injectabl e, quadrival ent DoD influenza, seasonal, injectable 2012 zzLef t Arm [id number] sanofi pasteur complet ed influenza , seasonal, injectabl e 03/14/12 Given Ambulat ory Pharmac y Influenza, seasonal, injectable 11 2012 Unknown, Provider [id number] 141 Sanofi Pasteur ([facility]) complet ed Influenza , seasonal, injectabl e DoD zoster vaccine live 2011 zzLef t Arm [id number] [employer] complet ed zoster vaccine live 06/15/11 Given Ambulat ory Pharmac y zoster vaccine, live 1 2011 Unknown, Provider [id number] 121 Merck (MSD) complet ed zoster vaccine, live DoD influenza, seasonal, injectable 2011 [facility] Arm [id number] sanofi pasteur complet ed influenza , seasonal, injectabl e 03/16/11 Given Ambulat ory Pharmac y Influenza, seasonal, injectable 10 2011 Unknown, Provider [id number] 141 Sanofi Pasteur ([facility]) complet ed Influenza , seasonal, injectabl e DoD [facility] virus [facility],split [id number] CSL Behring complet ed influenza virus vaccine,s plit 01/27/10 Given Ambulat ory Pharmac y influenza virus vaccine, split virus (incl. purified surface antigen)-reti red CODE 1 2009 Unknown, Provider [id number] [employer] (CS) complet ed influenza virus vaccine, split virus (incl. purified surface antigen)- retired CODE DoD influenza virus vaccine,split [facility] [id number] 15 sanofi pasteur complet ed influenza virus vaccine,s plit 05/13/08 Given Ambulat ory Pharmac y tetanus, diphtheria, acellular pertu is [id number] sanofi pasteur complet ed tetanus, diphtheri a, acellular pertussis 05/13/08 Given Ambulat ory Pharmac y influenza virus vaccine, split virus (incl. purified surface antigen)-reti red CODE 1 2008 Unknown, Provider [id number] 15 Sanofi Pasteur ([facility]) complet ed influenza virus vaccine, split virus (incl. purified surface antigen)- retired CODE DoD tetanus toxoid, reduced diphtheria toxoid, and acellular pertu is vaccine, adsorbed 1 2008 Unknown, Provider [id number] 115 Sanofi Pasteur ([facility]) complet ed tetanus toxoid, reduced diphtheri a toxoid, and acellular pertussis vaccine, adsorbed DoD [id number] sanofi pasteur complet ed influenza virus vaccine,s plit 02/22/05 Given Ambulat ory Pharmac y influenza virus vaccine, split virus (incl. purified surface antigen)-reti red CODE 1 2004 Unknown, Provider [id number] 15 Sanofi Pasteur ([facility]) complet ed influenza virus vaccine, split virus (incl. purified surface antigen)- retired CODE DoD influenza virus vaccine, whole virus 2002 zzLef t Arm [id number] 16 sanofi pasteur complet ed influenza virus vaccine, whole virus 02/10/03 Given Ambulat ory Pharmac y influenza virus vaccine, whole virus 1 2002 Unknown, Provider [id number] 16 Sanofi Pasteur ([facility]) complet ed influenza virus vaccine, whole virus DoD tuberculin purified protein derivative 2002 96 complet ed Patient Tolerance : Negative Ambulat ory Pharmac y tuberculin skin test; purified protein derivative solution, intradermal 1 2002 Unknown, Provider 96 Transcribed (TRS) complet ed tuberculi n skin test; purified protein derivativ e solution, intraderm al DoD influenza virus vaccine, whole virus 2001 zzLef t Arm [id number] 16 sanofi pasteur complet ed influenza virus vaccine, whole virus 02/18/02 Given Ambulat ory Pharmac y influenza virus vaccine, whole virus 1 2001 Unknown, Provider [id number] 16 Sanofi Pasteur ([facility]) complet ed influenza virus vaccine, whole virus DoD influenza virus vaccine, whole virus 1999 zzLef t Arm [id number] [email or web address] complet ed influenza virus vaccine, whole virus 02/27/00 Given Ambulat ory Pharmac y influenza virus vaccine, whole virus 1 1999 Unknown, Provider [id number] [facility] ([facility]) complet ed influenza virus vaccine, whole virus DoD tuberculin purified protein derivative 1999 zzLef t Arm [id number] 96 sanofi pasteur complet ed Patient Tolerance : Negative Ambulat ory Pharmac y tuberculin skin test; purified protein derivative solution, intradermal 1 1999 Unknown, Provider [id number] 96 Sanofi Pasteur ([facility]) complet ed tuberculi n skin test; purified protein derivativ e solution, intraderm al DoD typhoid vaccine, inactivated 1998 [id number] [facility] complet ed typhoid vaccine, inactivat ed 12/28/98 Given Ambulat ory Pharmac y influenza virus vaccine, whole virus 1998 [id number] [facility] complet ed influenza virus vaccine, whole virus 12/28/98 Given Ambulat ory Pharmac y tuberculin purified protein derivative 1998 96 complet ed Patient Tolerance : Negative Ambulat ory Pharmac y influenza virus vaccine, whole virus 1 1998 Unknown, Provider [id number] 16 [employer] (CON) complet ed influenza virus vaccine, whole virus DoD typhoid vaccine, parenteral, other than acetone-kille d, dried 1 1998 Unknown, Provider [id number] [employer] (CON) complet ed typhoid vaccine, parentera l, other than acetone-k illed, dried DoD tuberculin skin test; purified protein derivative solution, intradermal 1 1998 Unknown, Provider 96 () complet ed tuberculi n skin test; purified protein derivativ e solution, intraderm al DoD influenza virus vaccine, whole virus [id number] [facility] complet ed influenza virus vaccine, whole virus 12/31/97 Given Ambulat ory Pharmac y tuberculin purified protein derivative [id number] [facility] complet ed Patient Tolerance : Negative Ambulat ory Pharmac y influenza virus vaccine, whole virus 2 1997 Unknown, Provider [id number] 16 [employer] (CON) complet ed influenza virus vaccine, whole virus DoD tuberculin skin test; purified protein derivative solution, intradermal 1 1997 Unknown, Provider [id number] 96 Elza Mendoza) complet ed tuberculi n skin test; purified protein derivativ e solution, intraderm al DoD hepatitis A adult vaccine 1997 [id number] Merck & Company Inc complet ed hepatitis A adult vaccine 04/08/97 Given Ambulat ory Pharmac y tetanus-dipht h toxoids (Td) adult/adol 1997 [id number] [facility] complet ed tetanus-d iphth toxoids (Td) adult/ado l 04/08/97 Given Ambulat ory Pharmac y tetanus and diphtheria toxoids, adsorbed, preservative free, for adult use (2 Lf of tetanus toxoid and 2 Lf of diphtheria toxoid) 2 1997 Unknown, [id number] tetanus and diphtheri a toxoids, adsorbed, preservat brandon free, for adult use (2 Lf of tetanus toxoid and 2 Lf of diphtheri a toxoid) [facility] hepatitis A vaccine, adult dosage 2 1997 Unknown, Provider [id number] Merck (MSD) complet ed hepatitis A vaccine, adult dosage DoD influenza virus vaccine, whole virus 1996 [id number] 16 [facility] complet ed influenza virus vaccine, whole virus 01/05/97 Given Ambulat ory Pharmac y influenza virus vaccine, whole virus 1 1996 Unknown, Provider [id number] virus vaccine, whole virus DoD meningococcal polysaccharid e (MPSV4) 1996 [id number] [facility] complet ed meningoco ccal polysacch aride (MPSV4) 10/06/96 Given Ambulat ory Pharmac y meningococcal polysaccharid e vaccine (MPSV4) 1 1996 Unknown, Provider [id number] [facility] (CON) complet ed meningoco ccal polysacch aride vaccine (MPSV4) DoD yellow fever vaccine 1996 37 complet ed yellow fever vaccine 10/02/96 Given Ambulat ory Pharmac y yellow fever vaccine 1 1996 Unknown, Provider 37 () complet ed yellow fever vaccine DoD typhoid vaccine, inactivated 1996 101 complet ed typhoid vaccine, inactivat ed 09/29/96 Given Ambulat ory Pharmac y hepatitis A adult vaccine 1996 52 complet ed hepatitis A adult vaccine 09/29/96 Given Ambulat ory Pharmac y tuberculin purified protein derivative 1996 96 complet ed Patient Tolerance : Negative Ambulat ory Pharmac y typhoid vaccine, parenteral, other than acetone-kille d, dried 1996 Unknown, Provider 41 () complet ed typhoid vaccine, parentera l, other than acetone-k illed, dried [facility] hepatitis A vaccine, adult dosage 1996 Unknown, Provider 52 () complet ed hepatitis A vaccine, adult dosage [facility] tuberculin skin test; purified protein derivative solution, intradermal 1996 Unknown, Provider 96 () complet ed tuberculi n skin test; purified protein derivativ e solution, intraderm al [facility] tetanus-dipht h toxoids (Td) adult/adol 1987 09 complet ed tetanus-d iph toxoids (Td) adult/ado l 07/01/87 Given Ambulat ory Pharmac y tetanus and diphtheria toxoids, adsorbed, preservative free, for adult use (2 Lf of tetanus toxoid and 2 Lf of diphtheria toxoid) 1 1987 Unknown, Provider 09 () complet ed tetanus and diphtheri a toxoids, adsorbed, preservat brandon free, for adult use (2 Lf of tetanus toxoid and 2 Lf of diphtheri a toxoid) [facility] measles/mumps /rubella virus vaccine 1977 [id number] [employer]ck & Company Inc complet ed measles/m umps/rube lla virus vaccine 06/09/77 Given Ambulat ory Pharmac y poliovirus vaccine, live, oral 1977 02 complet ed polioviru s vaccine, live, oral 06/09/77 Given Ambulat ory Pharmac y trivalent poliovirus vaccine, live, oral 5 1977 Unknown, Provider 02 () complet ed trivalent polioviru s vaccine, live, oral DoD measles, mumps and rubella virus vaccine 1 1977 Unknown, Provider [id number] Merck (MSD) complet ed measles, mumps and rubella virus vaccine DoD Results Combined list of recent chemistry, hematology and other laboratory results from Department of Defense and Veterans Affairs, ranging from 15 months to all on record, depending upon the facility. Order Name Results Value Reference Range Date Interpretation Specimen Comments Source Chemistry Potassium Lvl 4.1 mmol/L 3.5 - 5.1 07/06 N 0055A-3 [facility] Chemistry Sodium 142 mmol/L 136 - 145 07/06 N 0055A-[facility] Chemistry Calcium 8.9 mg/dL 8.4 - 10.2 07/06 N 0055A-3 [facility] Chemistry Chloride 106 mmol/L 98 - 107 07/06 N 0055A-3 [facility] Chemistry AGAP 9.00 0.00 - 15.00 07/06 N 0055A-[facility] Chemistry CO2 27 mmol/L 22 - 29 07/06 N 0055A-3 [facility] Chemistry BUN 24 mg/dL 8 - 26 07/[address] [place] [address] Chemistry Creatinine Level 1.00 mg/dL 0.72 - 1.25 07/[address] [place] [address] Chemistry BUN/Creat Ratio 24 mg/dL 12 - 20 07/[address] [place] [address] Chemistry Glucose Lvl 113 mg/dL 74 - 99 07/[address] [place] [address] Chemistry Ur Microalb/Ur Creat Ratio 4 mg/gCr 07/[address] [place] [address] Chemistry Ur Creat 156 mg/dL 07/[address] [place] [address] Chemistry Ur Microalbumi n 6 mg/L 07/06 N Interpretive Data: To minimize intra-indivi dual variation, analysis of three random urine samples collected over the course of a week has also been recommended. [address] [place] [address] Chemistry eAvg Glucose 108 mg/dL 07/[address] [place] [address] Chemistry Hemoglobin A1c 5.4 % 4.0 - 5.6 07/06 N Interpretive Data: Normal: 4.0 - 5.6% Increased Risk: 5.7 - 6.4% Diabetic Range: 6.5% For patients without diabetes, the normal range for the hemoglobin A1c test is between 4% and 5.6%. Hemoglobin A1c levels between 5.7% and 6.4% indicate increased risk of diabetes, and levels of 6.5% or higher indicate diabetes. Because studies have repeatedly shown that crk-of-tqmkm ol diabetes results in complication s from the disease, the goal for people with diabetes is a hemoglobin A1c less than 7%. The higher the hemoglobin A1c, the higher the risks of developing complication s related to diabetes. If confirmation is needed, consider recalling the patient and ordering Hemoglobin Electrophore sis. [address] [place] [address] Chemistry Triglycerid es 54 mg/dL 7 - 149 07/06 N Interpretive Data: AGES 0-9: Desirable: < 75 mg/dL Borderline High: 75-99 mg/dL High: >/= 100 mg/dL AGES 10-19: Desirable: < 90 mg/dL Borderline High: 90-129 mg/dL High: >/= 130 mg/dL ADULTS: Desirable: < 150 mg/dL Borderline High: 150-199 mg/dL High: >/= 240 mg/dL Very High: >/= 500 mg/dL [address] [place] [address] Chemistry HDL Cholesterol 54 mg/dL 40 - 59 07/06 N Interpretive Data: HDL (HIGH DENSITY LIPOPROTEIN) : ADULTS: Low: < 40 mg/dL High: >/= 60 mg/dL AGES 0 -19: Low: < 40 mg/dL Borderline Low: 40 - 45 mg/dL Acceptable: > 45 mg/dL [address] [place] [address] Chemistry LDL/HDL 1 07/[address] [place] [address] Chemistry LDL 77 mg/dL 100 - 130 07/06 L Interpretive Data: AGES 0-19: Desirable: < 110 mg/dL Borderline High: 110-129 mg/dL High: >/= 130 mg/dL ADULTS: Desirable: <100 mg/dL Near/above optimal: 100-130 mg/dL Borderline High: 131-159 mg/dL High: 160-189 mg/dL Very High: 190 mg/dL [address] [place] [address] Chemistry Cholesterol Total 138 mg/dL 07/06 N Interpretive Data: According to the [place] [employer]: AGES 0-19: Desirable: < 170 mg/dL Borderline High: 170-199 mg/dL High Blood Cholesterol: >/= 200 mg/dL ADULTS: Desirable < 200 mg/dL Borderline High: 200-239 mg/dL High Blood Cholesterol: >/= 240 mg/dL [address] [place] [address] Chemistry Chol/HDL 3 mg/dL 07/[address] [place] [address] Chemistry eGFR CKD EPI 83 mL/min /1.73_ m2 07/06 Interpretive Data: Estimated Glomerular Filtration Rate (eGFR) calculated using the 2020 Chronic Kidney Disease-Epid emiology (CKD-EPI) Collaboratio n creatinine equation; units of measure are mL/min/1.73 m2. Results are only valid for adults (>=18 years) whose serum creatinine is in steady state. eGFR calculations are not valid for patients with acute kidney injury and for patients on dialysis. Creatinine-b ased estimates of kidney function may also be inaccurate in patients with reduced creatinine generation due to decreased muscle mass (e.g., malnutrition , severe hypoalbumine bernadette, sarcopenia, chronic neuromuscula r disease, amputations, severe heart failure or liver disease) and in patients with increased creatinine generation due to increased muscle mass (e.g., muscle builders, anabolic steroids) or increased dietary intake. CKD is diagnosed based on abnormalitie s of kidney structure or function, present for >3 months, with implications for health and disease. CKD is classified and staged based on cause, eGFR and albuminuria (quantified as urine albumin to creatinine ratio). An eGFR >60 mL/min/1.73 m2 in the absence of increased urine albumin excretion or structural abnormalitie s does not CKD. eGFR provides only an estimate of measured GFR within +/- 30% for most patients. As mentioned, nutritional status and muscle mass, among many factors, may lead to inaccuracy in the estimate. Consider ordering the creatinine-c ystatin C panel if better accuracy is needed for clinical decision-logan ing. eGFR (mL/min/1.73 m2) CKD stage Interpretati on Normal 60-89 Mild decrease 45-59 Mild to moderate decrease 30-44 Moderate to severe decrease 15-29 Severe decrease <15 Kidney failure 0055A-3 [facility] Vital Signs Combined list of inpatient and outpatient Vital Signs from Department of Defense and Veterans Affairs, ranging from 12 months to all on record, depending upon the facility. Vital Sign Value Date Comments Source Blood Pressure Manual Automatic 05/14/2024 20:01:00 5520P-Rl-S[facility] Mean Arterial Pressure, Calc 103 mm[Hg] 05/14/2024 20:01:00 6187R-Ck-R-3 [facility] Systolic Blood Pressure 152 mm[Hg] 05/14/2024 20:01:00 9185H-It-Z[facility] Diastolic Blood Pressure 79 mm[Hg] 05/14/2024 20:01:00 1578R-Ff-B-[facility] Peripheral Pulse Rate 69 bpm 05/14/2024 20:01:00 8755I-Pz-D-[facility] Respiratory Rate 18 br/min 05/14/2024 20:01:00 8134K-Gy-C-[facility] BP Site Right arm 05/14/2024 20:01:00 6130C [facility] Encounters Combined list of: 1) Encounters from Department of Veterans Affairs facilities going backup to the last 18 months, not all VA inpatient encounters are included; 2) Encounters from the Department of Defense facilities going backup to 280 months. Location Location Details Encounter Type Encounter Number Reason For Visit Attending Provider ADM Date DC Date Status Disposition Source [address] [place] [address] [place] [facility] [place] [facility] [place] OUTPATIENT [id number] f/u on lab results CECILIA SORIANO 08/08 Released w/o Limitations [address] [place] [address] [place] [place] [facility] [place] [address] [place] [address] [place] [facility] [place]Car diologyPr ocedure Schedules ) OUTPATIENT [id number] TRACEE ABELE ILEANA FU 09/15 Released w/o Limitations [address] [place] [address] [place] [facility] [place]ustin caraballo Schedul es) [address] [place] [address] [place] [facility] [place] [facility] [place]) OUTPATIENT [id number] f/u echo CECILIA SORIANO 10/31 Released w/o Limitations [address] [place] [address] [place] [facility] [place] [facility] [place] [address] [place] [address] [place] [facility] [place] [facility] [place]) TELE CONSULT [id number] letter for medical authori CECILIA Green 12/[address] [place] [address] [place] [facility] [place] [facility] [place] [place] [address] [place] [address] [place] [facility] [place] [facility] [place]) OUTPATIENT [id number] f/u on Bp medicat ion CECILIA SORIANO 02/06 Released w/o Limitations [address] [place] [address] [place] [facility] [place] [facility] [place] [address] [place] [address] [place] [facility] [place] [facility] [place] OUTPATIENT [id number] foot/to e pain WILL FELDMAN 02/22 Released w/o Limitations [address] [place] [address] [place] [facility] [place] [facility] [place] [address] [place] [address] [place] [facility] [place] [place] [facility] [place] OUTPATIENT [id number] fu broken toe WILL FELDMAN 03/14 Released w/o Limitations [address] [place] [address] [place] [facility] [place] [place] [facility] [place] Blue[place] [address] [place] [address] [place] [facility] [place] [place] [facility] [place]) OUTPATIENT [id number] PHYSICA L/HOME DAYC[facility] GÓMEZBRYAN PEACE Erin 05/25 Released w/o Limitations [address] [place] [address] [place] [facility] [place] [place] [facility] [place]m Blue) [address] [place] [address] [place] [facility] [place] [place] [facility] [place]) OUTPATIENT [id number] f/u lower back pain MANE SYLVESTER 05/03 Released w/o Limitations [address] [place] [address] [place] [facility] [place] [place] [facility] [place]) [address] [place] [address] [place] [facility] [place] [place] [facility] [place]) OUTPATIENT [id number] f/u kidney stone/B P SHARMIN GREENBERG 05/10 Released w/o Limitations [address] [place] [address] [place] [facility] [place] [place] [facility] [place]) [address] [place] [address] [place] [facility] [place] [place]Opt [place]metry[place] OUTPATIENT [id number] eye exam YOAV BARRIOS 05/20 Released w/o Limitations [address] [place] [address] [place] [facility] [place]O ptometr y) [address] [place] [address] [place] [facility] [place] [place] [facility] [place]m Green) TELE CONSULT [id number] premed for dental BRANDON JACOBSEN 07/[address] [place] [address] [place] [facility] [place] OF Fam Res Tm Green) [address] [place] [address] [place] [facility] [place] [place] [facility] [place]) OUTPATIENT [id number] f/u on bp SHARMIN GREENBERG 07/09 Released w/o Limitations [address] [place] [address] [place] [facility] [place] [facility] [place] [facility]) [address] [place] [address] [employer] [place] OF [facility] Tm Blue) TELE CONSULT [id number] form for FAA SHARMIN GREENBERG 07/[address] [place] [address] Group [employer] [place] [facility] Tm Blue[place] [address] [place] [address] [place] [facility] [place] [place] [facility] [place] [place]) TELE CONSULT [id number] RYAN Bangura 07/[address] [place] [address] [place] [facility] [place] [facility] [place]m Blue) [address] [place] [address] [place] [facility] [place] [place] [facility] [place]) OUTPATIENT [id number] f/u GERD/Mu SHARMIN Mendoza 07/30 Released w/o Limitations [address] [place] [address] [place] [facility] [place] [place] [facility] [place]) [address] [place] [address] [place] [facility] [place] [place] [facility] [place] Green) OUTPATIENT [id number] blood pressur e refill NEAL Garcia 06/30 Released w/o Limitations [address] [place] [address] [place] [facility] [place] [place] [facility] [place]) [address] [place] [address] [place] [facility] [place] [place] [facility] [place]) OUTPATIENT [id number] B/P check BRYAN SIERRA 10/19 Released w/o Limitations [address] [place] [address] [place] [facility] [place] [facility] [place] [place]) [address] [place] [address] [place] [facility] [place] [place] [facility] [place]) OUTPATIENT [id number] [facility]# f/u eval for bp JOSEFA LÓPEZ 10/27 Released w/o Limitations [address] [place] [address] [place] [facility] [place] [place] [facility] [place]) [address] [place] [address] [employer] [place] [place] [facility] [place] [place]) OUTPATIENT [id number] MATT Aden 05/13 Released w/o Limitations [address] [place] [address] [employer] [place] [place] [facility] [place]) [address] [place] [address] [place] [facility] [facility] [place] [facility] [place]) OUTPATIENT [id number] daycare physica l [phone] BREE MEYERS 06/23 Released w/o Limitations [address] [place] [address] [place] [facility] [place] [facility] Tm Blue[place] [address] [place] [address] [place] [facility] [place] [place] OF [facility] Tm Blue) TELE CONSULT [id number] Medicat ion Request YVONNE KNAPP 07/[address] [place] [address] [place] [facility] [place] [facility] Tm Blue) [address] [place] [address] [place] [facility] [place] OF [facility] Tm Blue) OUTPATIENT [id number] hyperte leesaLEOBARDO Alex 11/04 Released w/o Limitations [address] [place] [address] [place] [facility] [place] [facility] [place] Blue) [address] [place] [address] [place] [facility] [place] [place] [facility] [place] [place]) TELE CONSULT [id number] Renewal of YVONNE Daniel 12/[address] [place] [address] [place] [facility] [place] Fam Res Tm Green) [address] [place] [address] [place] [facility] [place] [place] [facility] [place] [place]) TELE CONSULT [id number] med YVONNE Aguilar 04/[address] [place] [address] [place] [facility] [place] [facility] Tm Blue) [address] [place] [address] [place] [facility] [place] OF FAM[facility] Tm Blue[place] OUTPATIENT [id number] cough x over 1 week [phone] YVONNE KNAPP 06/02 Released w/o Limitations [address] [place] [address] [place] [facility] [place] [facility] [place]m Blue) [address] [place] [address] [place] [facility] [place] [place] OF FAM[facility] Tm Blue) OUTPATIENT [id number] sinus infecti on x 1 month [phone] YVONNE KNAPP 06/21 Released w/o Limitations [address] [place] [address] [employer] [place] [facility] Tm Blue) [address] [place] [address] [place] [facility] [place] [place] [facility] [place]) TELE CONSULT [id number] YVONNE Aguilar 07/[address] [place] [address] [place] [facility] [place] [facility] Tm Blue) [address] [place] [address] [place] [facility] [place] OF Fam Res Tm Green) TELE CONSULT [id number] Juan khan, contact : [phone] DOUG GO 11/[address] [place] [address] [place] [facility] [place] OF Fam Res Tm Green) [address] [place] [address] [place] [facility] [place] [place] [facility] [place]) TELE CONSULT [id number] Needs f/u for blood pressur e and bloodwo rk/ Randall y cad tlt YVONNE KNAPP 11/[address] [place] [address] [place] [facility] [place] [facility] [place]m [place] [address] [place] [address] [place] [facility] [place] [place] [facility] [place]) TELE CONSULT [id number] paperwo YVONNE Payne 11/[address] [place] [address] [place] [facility] [place] [place] [facility] [place]) [address] [place] [address] [place] [facility] [place] [place] [facility] [place]) OUTPATIENT [id number] FLU SHOT MARTIN ADAMSON 01/27 Released w/o Limitations [address] [place] [address] [place] [facility] [place] [facility] [place]) [address] [place] [address] [place] [facility] [place] [place] [facility] [place]) TELE CONSULT [id number] med refill - Mcclear y - cad/pm YVONNE KNAPP 07/[address] [place] [address] [place] [facility] [place] [facility]) [address] [place] [address] [place] [facility] [place] [place] [facility] [place]) TELE CONSULT [id number] Medicat ion Refill - McClear 960-7 998/cad YVONNE Esparza 09/[address] [place] [address] [place] [facility] [place] [place] [facility]) [address] [place] [address] [place] [facility] [place] [facility] [place] [place]) TELE CONSULT [id number] Lab Request - McClear y/960-7 998/cad NEAL Bunch 10/[address] [place] [address] [place] [facility] [place] [facility] [place]) [address] [place] [address] [place] [facility] [place] [facility] [place]) OUTPATIENT [id number] follow up blood pressur e [phone] YVONNE KNAPP 11/06 Released w/o Limitations [address] [place] [address] [place] [facility] [facility] [place] [address] [place] [address] [place] [facility] [place] [facility] [place]) OUTPATIENT [id number] jose YVONNE KNAPP 03/16 Released w/o Limitations [address] [place] [address] [place] [facility] [facility] [place] [place]) [address] [place] [address] Alex B [facility] [place] [facility] [place] Green) OUTPATIENT [id number] CARLOS Robles 06/14 Released w/o Limitations [address] [place] [address] [place] [facility] [facility] [place]) [address] [place] [address] [place] [facility] [facility] [place]) TELE CONSULT [id number] Notes Entered by: NEAL CANADA 09 Oct 2011 1406 ------- ------- ------- ------- -- Tcon for med refill Dr Velazquez ph [phone] cad dmNEAL Solorio 10/[address] [place] [address] [place] [facility] [place] [facility] [place]) [address] [place] [address] [place] [facility] [place] [facility] [place] [place]) OUTPATIENT [id number] f/u for medicat ion [id number] MAEGAN NAVARRO 11/05 Released w/o Limitations [address] [place] [address] [place] [facility] [place] [facility] [place] [address] [place] [address] [place] [facility] [facility] [place] [facility] [place] [place]) OUTPATIENT [id number] lt wrist mole BRENDEN-PRASHANTH STOKES 12/10 Released w/o Limitations [address] [place] [address] [employer] [facility] [facility] [place] [place]) [address] [place] [address] [employer] [facility] [facility] [place]) OUTPATIENT [id number] Macules And Papules ZENA GORDON 12/24 Released w/o Limitations [address] [place], [place] [address]B [facility] [facility] [place]m Green) [address] [place] [address])(Sco tt [facility] [place]) OUTPATIENT [id number] Notes Entered by: SHERRELL CODY 14 Mar 2012 1518 ------- ------- ------- ------- -- flu shot PRASHANTH SANTIAGO 03/14 Released w/o Limitations [address] [place] [address])(S cott [facility] [place] [place]) [address] [place] [address])(Sco tt [facility] [place]) TELE CONSULT [id number] Notes Entered by: NEAL CANADA 06 May 2012 1041 ------- ------- ------- ------- -- Referra erin Novoa ph [phone] TEODORO MERRITT 05/[address] [place] [address])(S cott [facility] [place] [place]) [address] [place] [address])(Sco tt [facility] [place]) TELE CONSULT [id number] Notes Entered by: Gennaro SOTO 13 Aug 2012 1242 ------- ------- ------- ------- -- Med refill/ / Dr. Brenden Novoa/ // PRASHANTH SANTIAGO 08/[address] [place] [address])(S cott [facility] [place] [place]) [address] [place] [address])(Sco tt [facility] [place] [place]) TELE CONSULT [id number] Notes Entered by: CARLOS RESENDEZ 10 Sep 2012 0901 ------- ------- ------- ------- -- Nurse advice/ Lab request /Dr. Brenden Novoa/ MARÍA MILLS 09/[address] [place] [address])(S cott [facility]) [address] [place] [address] Alex [facility])(Sco tt [facility] [place]) TELE CONSULT [id number] Notes Entered by: PRASHANTH PATTRESON 18 Sep 2012 1139 ------- ------- ------- ------- -- labs PRASHANTH SANTIAGO 09/[address] [place] [address])(S cott [facility]) [address] [place] [address])(Sco tt [facility] [place] [place]) OUTPATIENT [id number] FAA physica l and form signed/ PRASHANTH SANTIAGO 09/22 Released w/o Limitations [address] [place] [address])(S cott [facility] [place] [place]) [address] [place] [address])(Sco tt [facility] Tm Blue) TELE CONSULT [id number] Notes Entered by: NEWTON MATHIAS 24 Sep 2012 1331 ------- ------- ------- ------- -- Network Results -UROLOG Y 3 PRASHANTH SANTIAGO 09/[address] [place] [address] Alex [facility])(S cott [facility] Tm Blue) [address] [place] [address])(Sco tt [facility] Tm Blue) TELE CONSULT [id number] Notes Entered by: Dustin SOTO 11 Dec 2012 0908 ------- ------- ------- ------- -- Med refill/ Brenden Novoa/ [phone] JENA GONSALEZ 12/[address] [place] [address])(S cott [facility] Tm Blue) [address] [place] [address])(Sco tt [facility] Tm Blue) TELE CONSULT [id number] Notes Entered by: LUCIANO SHEEHAN 26 Jan 2013 1317 ------- ------- ------- ------- -- Referra l renewal to Urology SHEEHANHERMELINDO Zafar 01/[address] [place] [address] Alex [facility])(S [facility] FAMRES Tm Blue) [address] [place] [address] Alex [facility])([facility] Fam Res Tm Gold) OUTPATIENT [id number] f/u BP check and referra ls - PRASHANTH SANTIAGO 07/02 Released w/o Limitations [address] [place] [address] Alex [facility] Fam Res Tm Gold) [address] [place] [address] Alex [facility] Fam Res Tm Gold) TELE CONSULT [id number] Notes Entered by: Dustin SOTO 10 Jul 2013 1338 ------- ------- ------- ------- -- Medicat ion is not in system/ Brenden Novoa/ [phone] MISTY NAVARRO 07/[address] [place] [address] Alex [facility])([facility] Fam Res Tm Gold) [address] [place] [address] Alex [facility])([facility] Fam Res Tm Gold) TELE CONSULT [id number] Notes Entered by: RICH DICK 05 Oct 2013 1048 ------- ------- ------- ------- -- Med refill Brenden Flores IASIAH REDDY 10/[address] [place] [address] Alex [facility])([facility] Fam Res Tm Gold) [address] [place] [address] Alex [facility])([facility] Fam Res Tm Gold) OUTPATIENT [id number] low back pain, chronic PRASHANTH SANTIAGO 10/20 Released w/o Limitations [address] [place] [address] Alex [facility])(S [facility] Fam Res Tm Gold) [address] [place] [address] [employer] [facility] Fam Res Tm Gold) TELE CONSULT [id number] Notes Entered by: Gennaro SOTO 27 Jul 2014 0949 ------- ------- ------- ------- -- Med refill EDEN CAMEJO 07/27 Referred for Appointment [address] [place] [address] Alex [facility])([facility] Fam Res Tm Gold) [address] [place] [address] Alex [facility])(Sco tt [facility] Fam Res Tm Gold) OUTPATIENT [id number] hyperte nsion follow up MITA ALDRIDGE 08/13 Released w/o Limitations [address] [place] [address] Alex B [facility] Fam Res Tm Gold) [address] [place] [address] Alex [facility])(Sco tt [facility] Fam Res Tm Gold) TELE CONSULT [id number] Notes Entered by: MITA ALDRIDGE 03 Sep 2014 0829 ------- ------- ------- ------- -- Lab results EDEN CAMEJO 09/03 Referred for Appointment [address] [place] [address] Alex [facility])([facility] Fam Res Tm Gold) [address] [place] [address])(Sco tt [facility] Tm Blue) TELE CONSULT [id number] Notes Entered by: BRANDON ALICIA 21 Sep 2014 0826 ------- ------- ------- ------- -- Network Results - CARDIOL OGY / ECHO - 09/17/14 AD SAVAGE 09/[address] [place] [address] Alex [facility])([facility] FAMRES Tm Blue) [address] [place] [address] Alex [facility])(Sco tt [facility] Tm Blue) TELE CONSULT [id number] Notes Entered by: AMMON FLORENTINO 30 Sep 2014 0637 ------- ------- ------- ------- -- Network Results -CARDIO LOGY 09/24/14 MARY ALVAREZ 09/[address] [place] [address])([facility] FAMRES Tm Blue) [address] [place] [address])([facility] Fam Res Tm Gold) TELE CONSULT [id number] Notes Entered by: ALE MACKEY 05 Oct 2014 0938 ------- ------- ------- ------- -- Cardiol ogy Referra IRAJ Prieto 10/05 Referred for Appointment [address] [place] [address])(S [facility] Fam Res Tm Gold) [address] [place] [address])([facility] FAMRES Tm Blue) TELE CONSULT [id number] Notes Entered by: AMMON FLORENTINO 07 Oct 2014 0943 ------- ------- ------- ------- -- Network Results -CARDIO LOGY 10/06/14 MINERVA MICHAELS 10/[address] [place] [address])([facility] [address] [place] [address])([facility] Fam Res Tm Gold) OUTPATIENT [id number] F/U GERD MITA ALDRIDGE 11/04 Released w/o Limitations [address] [place] [address])(S [facility] Fam Res Tm Gold) [address] [place] [address])([facility] Fam Res Tm Gold) TELE CONSULT [id number] Notes Entered by: COMFORT LANE 30 Dec 2014 1010 ------- ------- ------- ------- -- Network Results -GASTRO ENTEROL OGY 5 MITA ALDRIDGE 12/[address] [place] [address])([facility] Fam Res Tm Gold) [address] [place] [address])([facility] Peds Richard Padilla) TELE CONSULT [id number] Notes Entered by: BRANDON ALICIA 11 Jan 2015 1243 ------- ------- ------- ------- -- Network Results - AUDIOLO GY- 5 ALMITA CLEVELAND 01/[address] [place] [address] Alex [facility])(Franca fernández Jaylen Padilla) [address] [place] [address] Alex [facility])([facility] Fam Res Tm Green) TELE CONSULT [id number] Notes Entered by: DELBERT MOSLEY 11 Jan 2015 1433 ------- ------- ------- ------- -- Network results Cardiol ogy 5 MARY ALVAREZ 01/[address] [place] [address])([facility] Fam Res Tm Green) [address] [place] [address] Alex [facility])([facility] Fam Res Tm Gold) TELE CONSULT [id number] Notes Entered by: COMFORT LANE 26 Jan 2015 0920 ------- ------- ------- ------- -- Network Results -GASTRO ENTEROL OGY 5 MARY MCHUGH 01/[address] [place] [address] Alex [facility])([facility] Fam Res Tm Gold) [address] [place] [address] Alex [facility])([facility] Fam Res Tm Gold) TELE CONSULT [id number] Notes Entered by: COMFORT LANE 28 Jan 2015 0901 ------- ------- ------- ------- -- Network Results -GASTRO ENTEROL OGY 5 MARY MCHUGH 01/[address] [place] [address] Alex [facility])([facility] Fam Res Tm Gold) [address] [place] [address] Alex [facility])([facility] Fam Res Tm Gold) TELE CONSULT [id number] Notes Entered by: ANISH CAMEJO 04 Oct 2015 1624 ------- ------- ------- ------- -- Preet Lainez / EDEN Claros 10/03 Referred for Appointment [address] [place] [address] Alex [facility])(S cott [facility] Fam Res Tm Gold) [address] [place] [address] Alex [facility])(Sco tt [facility] Fam Res Tm Gold) TELE CONSULT [id number] Notes Entered by: WAGNER GA 28 Oct 2015 0709 ------- ------- ------- ------- -- Concern of Somethi ng Coughed Up / Reinsamara -Sandra / - DOUG Ley 10/[address] [place] [address] Alex [facility])(S cott [facility] Fam Res Tm Gold) [address] [place] [address] Alex [facility])(Sco tt [facility] Fam Res Tm Green) OUTPATIENT [id number] cough [phone] SATHISH GARCIA 10/30 Released w/o Limitations [address] [place] [address] Alex [facility])(S [facility] Fam Res Tm Green) [address] [place] [address])(Sco tt [facility] Fam Res Tm Gold) TELE CONSULT [id number] Notes Entered by: VIRGIL STONER 04 Nov 2015 0859 ------- ------- ------- ------- -- Preet wilhelm/Myra Flores/6 [phone] SATHISH GARCIA 11/[address] [place] [address] Alex [facility])(S [facility] Fam Res Tm Gold) [address] [place] [address])(Sco tt [facility] Fam Res Tm Gold) TELE CONSULT [id number] Notes Entered by: COMFORT LANE 16 Nov 2015 1113 ------- ------- ------- ------- -- Network Results -CARDIO LOGY 11/02/15 YONY TERRY 11/[address] [place] [address] Alex [facility])(S cott [facility] Fam Res Tm Gold) [address] [place] [address] Alex [facility])(Sco tt [facility] Fam Res Tm Green) TELE CONSULT [id number] Notes Entered by: JOSE ANGEL RAMIREZ 22 Nov 2015 1714 ------- ------- ------- ------- -- Path results of nose specime n SATHISH GARCIA 11/[address] [place] [address])(S [facility] Fam Res Tm Green) [address] [place] [address])(Sco tt [facility] Res Tm Green) TELE CONSULT [id number] Notes Entered by: JOSE ANGEL RAMIREZ 29 Nov 2015 1242 ------- ------- ------- ------- -- CT Sinus SATHISH GARCIA 11/[address] [place] [address])([facility] Res Tm Green) [address] [place] [address])(Med ication Refill Clinic) TELE CONSULT [id number] Notes Entered by: WAGNER GA 01 Feb 2016 1007 ------- ------- ------- ------- -- Med Renewal / Brenden Novoa / - sgEDEN Santos 01/31 Released w/o Limitations [address] [place] [address])([facility]) [address] [place] [address])(Sco tt [facility] Fam Res Tm Gold) OUTPATIENT [id number] annual follow up, meds BRENDEN-PRASHANTH STOKES 02/26 Released w/o Limitations [address] [place] [address])(S [facility] Fam Res Tm Gold) [address] [place] [address])(Sco tt [facility] Fam Res Tm Gold) TELE CONSULT [id number] Notes Entered by: JESS GABRIEL 16 Aug 2016 0833 ------- ------- ------- ------- -- Alexeyra l Renewal /med change/ Heidy romeo/ /EDEN Ann 08/16 Referred for Appointment [facility] Medical Group Alex [facility]S cott [facility] Fam Res Tm Gold) [address] [place] [address] Group [facility]Sco tt [facility] Tm Blue) TELE CONSULT [id number] Notes Entered by: COMFORT LANE 03 Oct 2016 0949 ------- ------- ------- ------- -- Network Results -UROLOG Y 08/31/16 JAY JAY KRUEGER 10/[address] [place] [address] Group Alex [facility] Tm Blue) [address] [place] [address] Group [facility]Sco tt [facility] Tm Blue) TELE CONSULT [id number] Notes Entered by: JESS GABRIEL 26 Oct 2016 1327 ------- ------- ------- ------- -- Preet Lainez /Brodie brito/[phone] 9/[facility] SHELDON GARZA 10/26 Other Not Elsewhere Classified [facility] Group [facility]S cott [facility] Tm Blue) [address] [place] [address] Group [facility]Sco tt [facility] Tm Blue) OUTPATIENT [id number] Medicat ion Renewal s, BP F/U, Colonos copy ref [id number] JAY JAY CORONA 11/06 Released w/o Limitations [address] [place] [address] Group Alex [facility]m Blue) [address] [place] [address] [facility]Sco tt [facility] Tm Blue) TELE CONSULT [id number] Notes Entered by: JESS GABRIEL 16 Nov 2016 1252 ------- ------- ------- ------- -- Med dirk gaviria/Rafi schaefer/[phone]/cl EDEN CAMEJO 11/16 Referred for Appointment [facility] Medical Group [facility]S cott [facility] Tm Blue) [address] [place] [address] Alex [facility])(Sco tt [facility] Tm Blue) TELE CONSULT [id number] Notes Entered by: Micheal YAN 10 Dec 2016 1043 ------- ------- ------- ------- -- Network results Cardiol ogy 11/29/16 JAY JAY MONROE 12/[address] [place] [address] Alex [facility])(S cott [facility] Tm Blue) [address] [place] [address])(Sco tt [facility] Tm Blue) TELE CONSULT [id number] Notes Entered by: JESS GABRIEL 19 Dec 2016 1424 ------- ------- ------- ------- -- Colonos copy questio khadra/Rafi schaefer/[phone] EDEN Roy 12/19 Referred for Appointment [address] [place] [address] Alex [facility])(S cott [facility] Tm Blue) [address] [place] [address])(Sco tt [facility] Fam Res Tm Green) OUTPATIENT [id number] Notes Entered by: CAMRYN SARMIENTO 27 Feb 2017 1041 ------- ------- ------- ------- -- walking throat culture JEMAL MEJIA 02/27 Released w/o Limitations [address] [place] [address] Alex [facility]S [facility] Fam Res Tm Green) [address] [place] [address])(Sco tt [facility] Tm Blue) OUTPATIENT [id number] Cough/c hest congest ion/hea dache [id number] URJAMES BYCOSTA 03/15 Released w/o Limitations [address] [place] [address] Alex [facility])(S cott [facility] Tm Blue) [address] [place] [address])(Sco tt [facility] Tm Blue) OUTPATIENT [id number] f.u on back spasm [phone] URIGUGALI BYCOSTA 04/19 Released w/o Limitations [address] [place] [address])(S [facility] Tm Blue) [facility] Medical Group [employer] [place]Sco tt [facility] Blue) TELE CONSULT [id number] Notes Entered by: JESS GABRIEL 15 Nov 2017 1246 ------- ------- ------- ------- -- Med Renewal /Brodie brito/[phone] 8/EDEN Ann 11/15 Referred for Appointment [facility] Medical Group [employer] [facility]S [facility] Blue) [facility] Medical [facility] [employer] [facility]Sco tt [facility] Blue) TELE CONSULT [id number] Notes Entered by: SINAI GRIJALVA 19 Nov 2017 1521 ------- ------- ------- ------- -- Ref renewal /brodie brito/[phone] EDEN Boucher 11/19 Referred for Appointment [facility] Medical Group [employer] [facility]S [facility] Blue) [facility] [employer] [facility]Sco tt [facility] Blue) TELE CONSULT [id number] Notes Entered by: JESS GABRIEL 10 Jan 2018 0917 ------- ------- ------- ------- -- STAT Referra erin Sherwood/10 Jan 2018/Rosana callaway/ /EDEN Mckenzie lm 01/10 Referred for Appointment [facility] Medical [facility] [employer] [facility]S [facility] Blue) [facility] [employer] [facility]Sco tt [facility] Blue) TELE CONSULT [id number] Notes Entered by: SHIRLEY FOX 12 Mar 2018 1312 ------- ------- ------- ------- -- Rx fatou - Heidy Gonsalez [phone] - tsg SHELDON GARZA 03/12 Medication Refill Forwarded [address] [place] [address] Alex [facility])(S cott [facility] Tm Blue) [address] [place] [address] Alex [facility])(Sco tt [facility] Blue) TELE CONSULT [id number] Notes Entered by: VIRGIL STONER 25 Aug 2018 0956 ------- ------- ------- ------- -- Referra khan Renewal Request (appt 29 August)/Dustin avalos / (sharlene) LEVI PERKINS 08/25 Referred for Appointment [address] [place] [address] Alex [facility])(S [facility] Tm Blue) [address] [place] [address] Alex [facility])(Sco tt [facility] Blue) TELE CONSULT [id number] Notes Entered by: Rao MAI 05 Sep 2018 0855 ------- ------- ------- ------- -- Network results Urology 019 INOCENCIO JAIN 09/05 Referred for Appointment [address] [place] [address] Alex [facility])(S [facility] Tm Blue) [address] [place] [address] Alex [facility])(Sco tt [facility] Blue) TELE CONSULT [id number] Notes Entered by: GERMAN ALCAZAR RET 18 Nov 2018 0948 ------- ------- ------- ------- -- Rx Fatou /Venu gaviria/ RONEN Walter 11/18 Immediate Referral [address] [place] [address] Alex [facility])(S [facility] Tm Blue) [address] [place] [address] Alex [facility])(Sco tt [facility] Blue) OUTPATIENT [id number] annual SKY Brown 11/21 Released w/o Limitations [address] [place] [address] Alex [facility])(S [facility] Tm Blue) [facility])(Sco tt [facility] [employer] Tm Blue) TELE CONSULT [id number] Notes Entered by: WAGNER GA 11 Feb 2019 0909 ------- ------- ------- ------- -- Med Renewal / [place] [phone] - sgj SHELDON GARZA Michael 02/11 Other Not Elsewhere Classified [address] [place] [address])(S [facility] [employer] Blue) [address] [place] [address])([facility]) TELE CONSULT [id number] Notes Entered by: ED SOLARES 19 May 2019 1041 ------- ------- ------- ------- -- Med Renewal Request / Michael [phone] - RONEN Lazar 05/18 Medication Refill Forwarded [address] [place] [address])(S [facility] [employer] Blue) [address] [place] [address])(Sco tt [facility] [employer] Blue) TELE CONSULT [id number] Notes Entered by: VIRGIL STONER 03 Sep 2019 1006 ------- ------- ------- ------- -- STAT Referra l Renewal Request (appt 06 September)/Kiana bates/Naye [phone] RONEN CORNEJO 09/02 Released to Self Care [address] [place] [address])(S [facility] [employer] Tm Blue) [address] [place] [address])(Sco tt [facility] [employer] Blue) OUTPATIENT [id number] 2 In-Pers on - Lump middle of back increas ing ISAIAH LOPEZ 10/27 Released w/o Limitations [address] [place] [address])(S [facility] [employer] Tm Blue) [address] [place] [address])(Sco tt [facility] [employer] Blue) OUTPATIENT [id number] 7 MINOR/L IPOMA/S KIN TAG REMOVAL ANAT MUSE V 11/01 Released w/o Limitations [address] [place] [address] Alex [facility] ([facility]S cott [facility] [employer] Tm Blue) [address] [place] [address] [employer]Sco tt [facility] [employer] Tm Blue) TELE CONSULT [id number] Notes Entered by: ANAT NAVARRETE V 11 Nov 2019 1423 ------- ------- ------- ------- -- Patholo gy results ANAT MUSE V 11/10 Released to Self Care [address] [place] [address] Alex [place] ([facility]S cott [facility] [employer] Tm Blue) [address] [place] [address] [place] [facility]Sco tt [facility] [employer] Tm Blue) OUTPATIENT [id number] Notes Entered by: SB SOLANO 12 Nov 2019 0801 ------- ------- ------- ------- -- Sitches removal on back RHYS MORGAN 11/11 Released w/o Limitations [address] [place] [address] Alex [place] ([facility]S cott [facility] [employer] Tm Blue) [address] [place] [address] Alex [place] ([facility]Sco tt [facility] [employer] Tm Blue) TELE CONSULT [id number] Notes Entered by: CRISTINE ATKINS 22 Dec 2019 1225 ------- ------- ------- ------- -- RX steven/ Michael/ : [phone] RONEN CORNEJO 12/21 Referred for Appointment [address] [place] [address] Alex [place] ([facility]S cott [facility] FAMRES Tm Blue) [address] [place] [address] Alex [place] ([facility]Sco tt [facility] [employer] Tm Blue) OUTPATIENT [id number] 6 in person appt/an [place] physica l and med refill ELLYN PALAFOX 12/31 Released w/o Limitations [address] [place] [address] Alex [place] ([facility]S cott [facility] FAMRES Tm Blue) [address] [place] [address] Alex [facility] ([facility]Sco tt [facility] [employer] Tm Blue) TELE CONSULT [id number] Notes Entered by: FINA GERMAN 18 May 2020 0839 ------- ------- ------- ------- -- med refill/ michael/ [phone] INOCENCIO Menon 05/18 Medication Refill Forwarded [address] [place] [address])(S [facility] [employer] Tm Blue) [address] [place] [address])([facility] Tm Blue) TELE CONSULT [id number] Notes Entered by: CRISTIAN ABBOTT 05 Sep 2020 0944 ------- ------- ------- ------- -- Preet Lainez -MALENA Gaviria/ SHELDON GARZA 09/05 Other Not Elsewhere Classified [address] [place] [address])(S [facility] [employer] Tm Blue) [address] [place] [address])(Sco tt [facility] [employer] Tm Blue) TELE CONSULT [id number] Notes Entered by: SHIRLEY FOX 26 Oct 2020 0837 ------- ------- ------- ------- -- Preet lainez - Oct appt - Spendlo jung - - tsg ISADORA GAYLE 10/26 Released to Self Care [address] [place] [address])(S [facility] [employer] Tm Blue) [address] [place] [address])(Sco tt [facility] [employer] Tm Blue) TELE CONSULT [id number] Notes Entered by: NAVDEEP CAMPOS 13 Dec 2020 1019 ------- ------- ------- ------- -- Med Refill/ Stephanielo jung/[phone] ISADORA GAYLE 12/13 Referred for Appointment [address] [place] [address])(S [facility] FAMRES Tm Blue) [address] [place] [address] [facility])(Sco tt [facility] FAMRES Tm Blue) OUTPATIENT [id number] 6 annual well visit. med refill. ANAT MUSE V 12/23 Released w/o Limitations [address] [place] [address] Alex [facility])(S cott [facility] FAMRES Tm Blue) [address] [place] [address])(Sco tt [facility] [place] TELE CONSULT [id number] Notes Entered by: FINA GERMAN 28 Feb 2021 1412 ------- ------- ------- ------- -- testing request /spendl [phone] DOUG Gee 02/28 Released to Self Care [address] [place] [address])(S [facility] Tm Blue) [address] [place] [address])(Sco tt [facility]) TELE CONSULT [id number] Notes Entered by: FINA GERMAN 16 Mar 2021 0959 ------- ------- ------- ------- -- med refill/ spendlo [phone] TORIE Brush 03/16 Released to Self Care [address] [place] [address])(S [facility] Tm Blue) [address] [place] [address])(Sco tt [facility]) TELE CONSULT [id number] Notes Entered by: ED SOLARES 17 May 2021 1224 ------- ------- ------- ------- -- Med Renewal Request / Spendlo ve/ NEYDA HUI 05/17 Medication Refill Forwarded [address] [place] [address])(S cott [facility]) [address] [place] [address])(Sco tt [facility] Tm Green) TELE CONSULT [id number] 1 Notes Entered by: GAURAV SALMERON 21 Nov 2021 1019 ------- ------- ------- ------- -- Phone Call to front end alignment specialist for a referra khan request . INOCENCIO VAUGHAN 11/21 Other Not Elsewhere Classified [address] [place] [address])(S cott [facility] Tm Green) [address] [place] [address])(Sco tt [facility] Blue) TELE CONSULT [id number] 5 Notes Entered by: Rao MAI 02 Jan 2022 1426 ------- ------- ------- ------- -- Network results Cardiol ogy 022 PORTIA ARIAS 01/[address] [place] [address])([facility] [address] [place] [address])(Sco tt [facility]) TELE CONSULT [id number] 8 Notes Entered by: DARRIN BARON 16 May 2022 0813 ------- ------- ------- ------- -- Med Renewal Request / JUAN / NADER SAUCEDA 05/16 Other Not Elsewhere Classified [address] [place] [address])(S cott [facility]) [address] [place] [address])(Sco tt [facility]) OUTPATIENT [id number] 8 F2F- MED REFILLS SATHISH JHA 05/23 Released w/o Limitations [address] [place] [address])(S cott [facility]) [address] [place] [address])(Sco tt [facility] Blue) TELE CONSULT [id number] 2 Notes Entered by: YESY LEARY 24 May 2022 1329 ------- ------- ------- ------- -- RECORD TO REVIEW ALINE NEWMAN 05/24 Released to Self Care [address] [place] [address] Alex [place]AREB [place] [facility]m Blue) [address] [place] [address] Alex PETTIT [place]co [facility] Tm Blue) TELE CONSULT [id number] 1 Notes Entered by: Fausto JHA 2022 0814 ------- ------- ------- ------- -- lab results SATHISH JHA 05/30 Released to Self Care [address] [place] [address] Alex [place]TIT [place] [facility] Tm Blue) [facility] Outpatient Encounter [id number] 2 10/23 [facility] 6130C-Af- C-375Th Medgrp-Sc flory Between Visit [id number] 06/25 Discharge Disposition: Home or Self Care 6130C-A f-C-375 Th Medgrp- Alex 6130C-Af- C-375Th Medgrp-Sc flory Between Visit [id number] Tracee mclean (primar y) hyperte nsion,H yperlip idemia, unspeci fied 07/06 Discharge Disposition: Home or Self Care 6130C-A f-C-375 Th Medgrp- Alex 0055A-375 th MEDGRP-Sc flory Outpatient [id number] SANAM LOPEZ 07/06 Discharge Disposition: Home or Self Care 0055A-3 75th MEDGRP- Alex 6130C-Af- C-375Th Medgrp-Sc flory Between Visit [id number] 07/06 Discharge Disposition: Home or Self Care 6130C-A f-C-375 Th Medgrp- Alex 6130C-Af- C-375Th Medgrp-Sc flory Between Visit [id number] 07/06 Discharge Disposition: Home or Self Care 6130C-A f-C-375 Th Medgrp- Alex Procedures Combined list of: 1) Procedures from Department of Veterans Affairs facilities [facility], not all [place] non-surgical procedures are included; 2) All procedures from the Department of Defense facilities. Procedure Procedure Type Code Date Perfomer Comments Sourc e No data available for this section [facility] Pharmacy TELE ASSESS & MGT SRV PROV QUAL NONPHYS HLTH CARE PRO TO EST PAT,PARENT,GUARD NOT ORIG REL ASSESS & MGT SRV PROV W/IN PREV 7 DAYS NOR LEAD ASSESS & MGT SRV/PX W/IN NXT 24 HR/SOON APT;5-10 MIN MED DIS 2020 DoD TELE ASSESS & MGT SRV PROV QUAL NONPHYS HLTH CARE PRO TO EST PAT,PARENT,GUARD NOT ORIG REL ASSESS & MGT SRV PROV W/IN PREV 7 DAYS NOR LEAD ASSESS & MGT SRV/PX W/IN NXT 24H/SOON APT; 11-20 MIN MED DIS 2019 DoD POSTOPERATIVE FOLLOW-UP VISIT, NORMALLY INCLUDED IN THE SURGICAL PACKAGE, INDICATE THAT EVALUATION & MANAGEMENT SERVICE WAS PERFORMED DURING A POSTOPERATIVE PERIOD REASON RELATED ORIGINAL PROCEDURE 2019 DoD INCISIONAL BIOPSY OF SKIN (EG, WEDGE) (INCLUDING SIMPLE CLOSURE, WHEN PERFORMED); SINGLE LESION 2019 DoD TELE ASSESS & MGT SRV PROV QUAL NONPHYS HLTH CARE PRO TO EST PAT,PARENT,GUARD NOT ORIG REL ASSESS & MGT SRV PROV W/IN PREV 7 DAYS NOR LEAD ASSESS & MGT SRV/PX W/IN NXT 24 HR/SOON APT;5-10 MIN MED DIS 2019 DoD TELE ASSESS & MGT SRV PROV QUAL NONPHYS HLTH CARE PRO TO EST PAT,PARENT,GUARD NOT ORIG REL ASSESS & MGT SRV PROV W/IN PREV 7 DAYS NOR LEAD ASSESS & MGT SRV/PX W/IN NXT 24 HR/SOON APT;5-10 MIN MED DIS 2019 DoD TELE ASSESS & MGT SRV PROV QUAL NONPHYS HLTH CARE PRO TO EST PAT,PARENT,GUARD NOT ORIG REL ASSESS & MGT SRV PROV W/IN PREV 7 DAYS NOR LEAD ASSESS & MGT SRV/PX W/IN NXT 24H/SOON APT; 11-20 MIN MED DIS 2018 DoD INFECTIOUS AGENT ANTIGEN DETECTION BY IMMUNOASSAY WITH DIRECT OPTICAL (IE, VISUAL) OBSERVATION; STREPTOCOCCUS, GROUP A 2016 DoD COLORECTAL CANCER SCREENING; COLONOSCOPY ON INDIVIDUAL NOT MEETING CRITERIA FOR HIGH RISK 2016 DoD TELE ASSESS & MGT SRV PROV QUAL NONPHYS HLTH CARE PRO TO EST PAT,PARENT,GUARD NOT ORIG REL ASSESS & MGT SRV PROV W/IN PREV 7 DAYS NOR LEAD ASSESS & MGT SRV/PX W/IN NXT 24 HR/SOON APT;5-10 MIN MED DIS 2016 DoD TELE ASSESS & MGT SRV PROV QUAL NONPHYS HLTH CARE PRO TO EST PAT,PARENT,GUARD NOT ORIG REL ASSESS & MGT SRV PROV W/IN PREV 7 DAYS NOR LEAD ASSESS & MGT SRV/PX W/IN NXT 24 HR/SOON APT;5-10 MIN MED DIS 2016 DoD TELE ASSESS & MGT SRV PROV QUAL NONPHYS HLTH CARE PRO TO EST PAT,PARENT,GUARD NOT ORIG REL ASSESS & MGT SRV PROV W/IN PREV 7 DAYS NOR LEAD ASSESS & MGT SRV/PX W/IN NXT 24 HR/SOON APT;5-10 MIN MED DIS 2015 DoD TELE ASSESS & MGT SRV PROV QUAL NONPHYS HLTH CARE PRO TO EST PAT,PARENT,GUARD NOT ORIG REL ASSESS & MGT SRV PROV W/IN PREV 7 DAYS NOR LEAD ASSESS & MGT SRV/PX W/IN NXT 24 HR/SOON APT;5-10 MIN MED DIS 2015 DoD TELE ASSESS & MGT SRV PROV QUAL NONPHYS HLTH CARE PRO TO EST PAT,PARENT,GUARD NOT ORIG REL ASSESS & MGT SRV PROV W/IN PREV 7 DAYS NOR LEAD ASSESS & MGT SRV/PX W/IN NXT 24 HR/SOON APT;5-10 MIN MED DIS 2015 DoD TELE ASSESS & MGT SRV PROV QUAL NONPHYS HLTH CARE PRO TO EST PAT,PARENT,GUARD NOT ORIG REL ASSESS & MGT SRV PROV W/IN PREV 7 DAYS NOR LEAD ASSESS & MGT SRV/PX W/IN NXT 24 HR/SOON APT;5-10 MIN MED DIS 2014 DoD TELE ASSESS & MGT SRV PROV QUAL NONPHYS HLTH CARE PRO TO EST PAT,PARENT,GUARD NOT ORIG REL ASSESS & MGT SRV PROV W/IN PREV 7 DAYS NOR LEAD ASSESS & MGT SRV/PX W/IN NXT 24 HR/SOON APT;5-10 MIN MED DIS 2014 DoD TELE ASSESS & MGT SRV PROV QUAL NONPHYS HLTH CARE PRO TO EST PAT,PARENT,GUARD NOT ORIG REL ASSESS & MGT SRV PROV W/IN PREV 7 DAYS NOR LEAD ASSESS & MGT SRV/PX W/IN NXT 24 HR/SOON APT;5-10 MIN MED DIS 2012 DoD IMMUNIZATION ADMINISTRATION (INCLUDES PERCUTANEOUS, INTRADERMAL, SUBCUTANEOUS, OR INTRAMUSCULAR INJECTIONS); 1 VACCINE (SINGLE OR COMBINATION VACCINE/TOXOID) 2012 [facility] CHEMICAL CAUTERIZATION OF GRANULATION TISSUE (IE, PROUD FLESH) 2011 [facility] ZOSTER (SHINGLES) VACCINE (HZV), LIVE, FOR SUBCUTANEOUS INJECTION 2011 DoD IMMUNIZATION ADMINISTRATION (INCLUDES PERCUTANEOUS, INTRADERMAL, SUBCUTANEOUS, OR INTRAMUSCULAR INJECTIONS); 1 VACCINE (SINGLE OR COMBINATION VACCINE/TOXOID) 2011 DoD TELE ASSESS & MGT SRV PROV QUAL NONPHYS HLTH CARE PRO TO EST PAT,PARENT,GUARD NOT ORIG REL ASSESS & MGT SRV PROV W/IN PREV 7 DAYS NOR LEAD ASSESS & MGT SRV/PX W/IN NXT 24 HR/SOON APT;5-10 MIN MED DIS 2010 DoD TELE ASSESS & MGT SRV PROV QUAL NONPHYS HLTH CARE PRO TO EST PAT,PARENT,GUARD NOT ORIG REL ASSESS & MGT SRV PROV W/IN PREV 7 DAYS NOR LEAD ASSESS & MGT SRV/PX W/IN NXT 24 HR/SOON APT;5-10 MIN MED DIS 2010 DoD INFLUENZA VIRUS VACCINE, TRIVALENT (IIV3), SPLIT VIRUS, PRESERVATIVE FREE, 0.5 ML DOSAGE, FOR INTRAMUSCULAR USE 2009 DoD TELE ASSESS & MGT SRV PROV QUAL NONPHYS HLTH CARE PRO TO EST PAT,PARENT,GUARD NOT ORIG REL ASSESS & MGT SRV PROV W/IN PREV 7 DAYS NOR LEAD ASSESS & MGT SRV/PX W/IN NXT 24 HR/SOON APT;5-10 MIN MED DIS 2009 DoD TELE ASSESS & MGT SRV PROV QUAL NONPHYS HLTH CARE PRO TO EST PAT,PARENT,GUARD NOT ORIG REL ASSESS & MGT SRV PROV W/IN PREV 7 DAYS NOR LEAD ASSESS & MGT SRV/PX W/IN NXT 24 HR/SOON APT;5-10 MIN MED DIS 2009 DoD TELE ASSESS & MGT SRV PROV QUAL NONPHYS HLTH CARE PRO TO EST PAT,PARENT,GUARD NOT ORIG REL ASSESS & MGT SRV PROV W/IN PREV 7 DAYS NOR LEAD ASSESS & MGT SRV/PX W/IN NXT 24 HR/SOON APT;5-10 MIN MED DIS 2009 DoD TETANUS, DIPHTHERIA TOXOIDS AND ACELLULAR PERTUSSIS VACCINE (TDAP), WHEN ADMINISTERED TO INDIVIDUALS 7 YEARS OR OLDER, FOR INTRAMUSCULAR USE 2008 [facility] FITTING OF SPECTACLES, EXCEPT FOR APHAKIA; BIFOCAL 2006 [facility] ELECTROCARDIOGRAM, ROUTINE ECG WITH AT LEAST 12 LEADS; WITH INTERPRETATION AND REPORT 2006 [facility] INFLUENZA VIRUS VACCINE, TRIVALENT (IIV3), SPLIT VIRUS, PRESERVATIVE FREE, 0.5 ML DOSAGE, FOR INTRAMUSCULAR USE 2004 [facility] DOPPLER ECHOCARDIOGRAPHY, PULSED WAVE AND/OR CONTINUOUS WAVE WITH SPECTRAL DISPLAY (LIST SEPARATELY IN ADDITION TO CODES FOR ECHOCARDIOGRAPHIC IMAGING); COMPLETE 2004 [facility] SURGICAL TRAYS 2002 [facility] Rapid Antigen Identification Streptococcus Group A Beta Hemolytic Rapid Antigen Identification Streptococcus Group A Beta Hemolytic [id number] 2016 JEMAL MEJIA Non-Physician Phone Call To Patient/Provider Brief (5-10min) Non-Physician Phone Call To Patient/Provider Brief (5-10min) [id number] 2016 EDEN CAMEJO Non-Physician Phone Call To Patient/Provider Brief (5-10min) Non-Physician Phone Call To Patient/Provider Brief (5-10min) [id number] 2016 EDEN CAMEJO Non-Physician Phone Call To Patient/Provider Brief (5-10min) Non-Physician Phone Call To Patient/Provider Brief (5-10min) [id number] 2015 EDEN CAMEJO Non-Physician Phone Call To Patient/Provider Brief (5-10min) Non-Physician Phone Call To Patient/Provider Brief (5-10min) [id number] 2015 DOUG GO Non-Physician Phone Call To Patient/Provider Brief (5-10min) Non-Physician Phone Call To Patient/Provider Brief (5-10min) [id number] 2015 EDEN CAMEJO [facility] Non-Physician Phone Call To Patient/Provider Brief (5-10min) Non-Physician Phone Call To Patient/Provider Brief (5-10min) [id number] 2014 IRAJ MACKEY [facility] Non-Physician Phone Call To Patient/Provider Brief (5-10min) Non-Physician Phone Call To Patient/Provider Brief (5-10min) [id number] 2014 EDEN CAMEJO [facility] Non-Physician Phone Call To Patient/Provider Brief (5-10min) Non-Physician Phone Call To Patient/Provider Brief (5-10min) [id number] 2012 JENA GONSALEZ [facility] Immunization Administration One Vaccine Immunization Administration One Vaccine 37092 2012 JACQUELINE JOHNSON [facility] Influenza Split Vir Vac Age 6-35 Month IM Preservative Free 2012 JACQUELINE JOHNSON [facility] Chemical Cauterization Of Granulation Ti ue 2011 ZENA GORDON [facility] Shaving Of Lesion Trunk .6 to 1cm Shaving Of Lesion Trunk .6 to 1cm 23864 2011 ZENA GORDON [facility] Biopsy Skin Biopsy Skin 74445 2011 ZENA GORDON [facility] Immunization Administration One Vaccine Immunization Administration One Vaccine 81668 2011 JACQUELINE JOHNSON [facility] Zoster Vaccine, Live Zoster Vaccine, Live 09709 2011 JACQUELINE JOHNSON [facility] Immunization Administration One Vaccine Immunization Administration One Vaccine 91408 2011 ANTHONY MAJOR [facility] Influenza Split Virus Vaccine Age 3+ Years Intramuscular 2011 ANTHONY MAJOR [facility] Non-Physician Phone Call To Patient/Provider Brief (5-10min) Non-Physician Phone Call To Patient/Provider Brief (5-10min) [id number] 2010 NEAL CARY [facility] Non-Physician Phone Call To Patient/Provider Brief (5-10min) Non-Physician Phone Call To Patient/Provider Brief (5-10min) [id number] 2010 YVONNE KNAPP [facility] Influenza Split Virus Vacc Age 3+ Years IM Preservative Free 2009 MARTIN ADAMSON [facility] Immunization Administration One Vaccine Immunization Administration One Vaccine 38442 2009 MARTIN ADAMSON [facility] Non-Physician Phone Call To Patient/Provider Brief (5-10min) Non-Physician Phone Call To Patient/Provider Brief (5-10min) [id number] 2009 NEAL CARY [facility] Non-Physician Phone Call To Patient/Provider Brief (5-10min) Non-Physician Phone Call To Patient/Provider Brief (5-10min) [id number] 2009 DOUG GO [facility] Non-Physician Phone Call To Patient/Provider Brief (5-10min) Non-Physician Phone Call To Patient/Provider Brief (5-10min) 04102 2009 YVONNE KNAPP [facility] Immunization Administration One Vaccine Immunization Administration One Vaccine 60202 2008 MATT BURNS Influenza Split Virus Vaccine Age 3+ Years Intramuscular 2008 MATT BURNS Immunization Administration Each Additional Vaccine 2008 KATYMATT ALFONSO Tdap Vaccine Seven Years Of Age And Above Tdap Vaccine Seven Years Of Age And Above 52143 2008 MATT BURNS Ophthalmological New Patient Start Comprehensive Care Ophthalmological New Patient Start Comprehensive Care 02490 2006 YOAV BARRIOS [facility] Determination Of Refractive State Determination Of Refractive State 20032 2006 YOAV BARRIOS [facility] Spectacles Services Fitting Bifocals (Not For Aphakia) [employer] Fitting Bifocals (Not For Aphakia) 42797 2006 YOAV BARRIOS [facility] Electrocardiogram Electrocardiogram 39402 05/10 ZACK MUKHERJEE [facility] Influenza Split Virus Vacc Age 3+ Years IM Preservative Free 2004 WILL FELDMAN [facility] Biopsy Nail Biopsy Nail 72302 2004 WILL FELDMAN [facility] Echocardiogram (2-D) 2004 ILEANA FLEMING Echo (Doppler) Color Flow Velocity Mapping Echo (Doppler) Color Flow Velocity Mapping 22516 2004 ILEANA FLEMING Echo (Doppler) Echo (Doppler) 74761 2004 ILEANA FLEMING Non-Physician Phone Call To Pt/Provider Intermed (11-20 min) Non-Physician Phone Call To Pt/Provider Intermed (11-20 min) 32313 RONEN CORNEJO [facility] Non-Physician Phone Call To Patient/Provider Brief (5-10min) Non-Physician Phone Call To Patient/Provider Brief (5-10min) 01454 RONEN CORNEJO Skin Tag Removal Up To 15 Lesions Skin Tag Removal Up To 15 Lesions 37006 ANAT MUSE V [facility] Postoperative Visit, Without Charge Postoperative Visit, Without Charge 14958 RHYS MORGAN [facility] Social History Combined list of available smoking, tobacco, and other social history from Department of Defense and Veterans Affairs facilities. Social History Type Response Date Comment Sour e Sex Representation Male (finding) 05/16/2022 Un known Organization Tobacco Cigarette use: Never-cigarette user. Other Tobacco use: Never-other tobacco user (not cigarettes). Ambulatory Pharmacy Sexual Orientation Ambula tory Pharmacy Gender identity Ambulator y Pharmacy This section is an empty social history section. DoD Assessment and Plan Combined list of future care activities from Department of Defense and Veterans Affairs facilities (e.g., assessment and plan notes, appointments, orders, and referrals). Additional future care activities may be listed in the Plan of Care section. Result Assessment and Plan Date Source Assessment and Plan Extracted from:Title : FM-GERD f/u Author: SANAM MARTINEZ MD Date: 05/14/24 GERD - Gastro-esophageal reflux disease Chronic, controlled - In setting of [facility] and reported history of hiatal hernia per patient - Shared discussion making held - Notify patient that given his history of esophagitis that currently benefit of full dose PPI outweighs the risk of long-term side effects of the medication - Furthermore, recommended patient get spun up with a gastroenterology allergy for follow-up EGD and colonoscopy - Patient verbalized understanding agreeable to plan - Follow-up with [facility] Ordered: omeprazole(omeprazole 40 mg oral delayed release capsule), 1 cap(s), Oral, Daily, 30 to 60 minutes before a meal, # 90 cap(s), 3 total refill(s), Maintenance, Pharmacy: [id number] [External Rx] Referral Request 2.0 - DoD HTN - Hypertension Chronic, uncontrolled per JNC-8 Continue lisinopril 20 mg daily Labs as ordered: A1c, lipid panel, BMP, microalbumin creatinine ratio Encourage daily blood pressure log and bring to next appointment Follow-up in 3-4 weeks Ordered: Basic Metabolic Panel Hemoglobin A1c Lipid Panel Microalbumin Panel, Urine --- I was present in clinic building and examined patient in-person and spent 30 minutes reviewing chart and placing orders for this encounter. - Patient aware to call 911 or go to the nearest emergency room/urgent care for any urgent/emergent concerns or call [phone] and leave message with the clinic for any other concerns. Patient can also access Archiver's at [email or web address] to leave message with PCM Team. - Please note that this dictation was completed with [employer] dictation microphone and software and unintentional errors may be present. Efforts were made to check spelling and grammatical errors. If there are questions about the note please do not hesitate to ask. Capt Sanam Martinez MD Resident, PGY-3 [id number] , [facility] Program [place], [place] Addendum by LEVI DONOHUE MD on May 14, 2024 16:47:36 TELEVISION SPECIALIST On the day of encounter, I was available for discussion with the resident physician. Case was discussed with me in the Teach Room. I agree with the assessment and plan of care as documented above with any exceptions/additions noted below if necessary. All labs/rads/consults to be followed by the ordering provider. DO Sirena Gonzalez [employer] Family Medicine Physician Future Appointments Appointment Date: 08/11/2024 10:00:00 AM Scheduled Provider: SANAM MARTINEZ MD Location: [id number] Appointment Type: PC FTR Appointment Date: 08/11/2024 01:10:00 PM Scheduled Provider: PAULA LONDON Location: [id number] Appointment Type: IMMUN FTR 07/20/2024 [id number] Functional Status Combined list of recent functional and cognitive assessments recorded at Department of Defense and Veterans Affairs (VA).VA Functional [place] Measurement (FIM) Scale: 1 = Total Assistance (Subject = 0% +), 2 = Maximal Assistance (Subject = 25% +), 3 = Moderate Assistance (Subject = 50% +), 4 = Minimal Assistance (Subject = 75% +), 5 = Supervision, 6 = Modified [place] (Device), 7 = Complete [place] (Timely, Safely). Assessment Date/Time Source Assessment Type Assessment Skill Assessment Score Assessment Details No data available for this section
== END 2024-07-20 10:44 | disposition home or self-care (01) ==
PROVIDERS: Visit Provider Urology
DX: N20.0 Calculus of kidney (principal)
CPT/HCPCS: 74018

== ENCOUNTER 2024-08-06 02:15 | Day surgery (SDC) | payer MEDICARE, OTHER, SELFPAY ==
[2024-07-24 14:13] VITALS: BMI 26.6
--- OUTSIDE RECORDS SUMMARY | 2024-08-06 02:18 | XMS_ITS | Continuity of Care Document ---
Author Name [facility] Organization [facility] Care Team Providers Care Digital Court Reporter Name Role Phone [facility] Unavailable Unavailable Problems Combined list of problems from Department of Defense and Veterans Affairs facilities. It does not include entries that were removed or entered in error. Problem Status Onset Date Problem Type Date of Resolution Comments Source Cardiac murmur, unspecified Active 8 Condition [facility] URINARY CALCULUS Active Condition [facility] visit for: issue repeat prescription for medication Inactive Condition [facility] Outpatient Physician Consultation Active Condition DoD [place] Active Condition DoD skin: a rash [as Sx] Active Condition DoD Macules And Papules Inactive Condition D oD Vaccines Prophylactic Need Against Combinations Of Diseases Inactive Condition [facility] visit for: occupational health / fitness exam Active Condition [facility] visit for: issue repeat prescription Inactive Condition DoD Laboratory Studies Inactive Condition Do D ALLERGIC RHINITIS Active Condition [facility] SINUSITIS ACUTE Inactive Condition [facility] visit for: refer patient without exam or treatment Active Condition [facility] Vaccines Prophylactic Need Against DTP Active Condition DoD NORMAL ROUTINE HISTORY AND PHYSICAL Active Condition - Pt with leela l physical exam.- Will check labs requested by pt job.- 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 Bowers. DoD BENIGN PROSTATIC HYPERTROPHY Active Condition Referral to Dr Rivera and uroxtrol, and finasteride. Sx controlled DoD visit for: administrative purpose Inactive Condition DoD PRESBYOPIA Active Condition DoD REFRACTIVE ERROR - MYOPIA Active Condition [facility] ASTIGMATISM - REGULAR Active Condition [facility] HYPERTENSION (SYSTEMIC) Active Condition To continue wit h lisinopril, uroxatrol additive benefit. BP at home excellent. RTC Qy. DoD visit for: services flight physical Inactive Condition EKG done (unchanged from 2005). will check labs and have pt f/u for HTN DoD DERMATOPHYTOSIS NAILS ONYCHOMYCOSIS Inactive Condition Improvin g on 3 month course of Lamisil. Will check CMP when course complete in a few weeks. If needed, will consider a second course of therapy. 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 Noted known heart murmur on exam - has been previously worked up with an echo. Pt will come back in 1 month for further f/u of his onychomycosis on Lamisil dinesh [facility] DERMATOPHYTOSIS ONYCHOMYCOSIS TOENAILS Inactive Condition Confirmed positive. WIll order Lamisil. Prior auth submitted. [facility] CLOSED FRACTURE RIGHT 5TH TOE PROXIMAL PHALANX [...] note written f or FAA of condition. [facility] Medications Combined list of outpatient medications from [...] mouth) Ordered 2024 90.0 6130C-A f-C-375 Th [facility] LISINOPRIL (lisinopril ), 20 MG, TABLET, ORAL, LUPIN PHARMACEU, 1000 ea. BOTTLE Active [id number] 4 2023 90 Pharmac y Data Transac tion Service Facilit y LISINOPRIL (lisinopril ), 20 MG, TABLET, ORAL, LUPIN PHARMACEU, 1000 ea. BOTTLE Active [id number] 4 2023 90 Pharmac y Data Transac tion Service Facilit y lisinopril 20 mg oral tablet 1 tab(s), Oral, Daily, for blood pressure , # 90 tab(s), 3 total refill(s ), Maintena nce, Pharmacy : [id number] Oral (given by mouth) Ordered 2024 90.0 6130C-A f-C-375 Th [facility]- [facility] lisinopril 20 mg oral tablet 1 tab(s), Oral, Daily, for blood pressure , # 30 tab(s), 0 total refill(s ), Hard [facility], [id number] Oral (given by mouth) Complet ed 07/06/20242024 30.0 6130C-A f-C-375 Th [facility]- [facility] lisinopril 20 mg oral tablet 1 tab(s), Oral, Daily, for blood pressure , # 90 tab(s), 3 total refill(s ), [facility], [id number] Oral (given by mouth) Complet ed 05/29/20242024 90.0 6130C-A f-C-375 Th [facility]- Alex lisinopril 20 mg tablet See Instruct ions, # 90 EA, 3 total refill(s ), Acute Complet ed 05/22/2023 3 2023 90.0 Ambulat ory Pharmac y OMEPRAZOLE (OMEPRAZOLE ), 40 MG, CAPSULE DR, ORAL, ZYDUS PHARMACEU, 1000 ea. BOTTLE Active [id number] 4 2023 90 Pharmac y Data Transac tion Service Facilit y OMEPRAZOLE (OMEPRAZOLE ), 40 MG, CAPSULE DR, ORAL, ZYDUS PHARMACEU, 1000 ea. BOTTLE Active [id number] 4 2023 90 Pharmac y Data Transac tion Service Facilit y omeprazole 40 mg oral delayed release capsule 1 cap(s), Oral, Daily, 30 to 60 minutes before a meal, # 90 cap(s), 3 total refill(s ), [facility], Pharmacy : [facility] #[id number] Oral (given by mouth) Ordered 2024 90.0 6130C-A f-C-375 Th [facility]- [facility] omeprazole 40 mg oral delayed release capsule 1 cap(s), Oral, Daily, 30 to 60 minutes before a meal, # 90 cap(s), 3 total refill(s ), Hard Stop, Pharmacy : [facility] #[id number] Oral (given by mouth) Complet ed 05/14/20242024 90.0 6130C-A Crackle-C-375 Th [facility]- Alex omeprazole DR 40 mg capsule 40 [...] 90 tab(s), 3 total refill(s ), Maintena [facility], Pharmacy : [facility] #[id number] Oral (given by mouth) Ordered 2024 90.0 6130C-A Crackle-C-375 [facility]- [facility] rosuvastati n 10 mg oral tablet 1 tab(s), Oral, Daily, for choleste rol, # 30 tab(s), 0 total refill(s ), Hard [facility], Pharmacy : [facility] #[id number] Oral (given by mouth) Complet ed 07/06/20242024 30.0 6130C-A Crackle-C-375 Th [facility]- [facility] rosuvastati n 10 mg oral tablet 1 tab(s), Oral, Daily, for choleste rol, # 90 tab(s), 3 total refill(s ), Hard [facility], Pharmacy : [facility] #[id number] Oral (given by mouth) Complet ed 05/29/20242024 90.0 6130C-A Crackle-C-375 Th [facility]- [facility] rosuvastati n 10 mg tablet See dose instruct ions in comments , # 90 EA, 3 total refill(s ), Acute Complet ed 05/28/2023 4 2023 90.0 Ambulat ory Pharmac y ROSUVASTATI N CALCIUM (rosuvastat in calcium), 10 MG, TABLET, ORAL, CAMBER PHARMACE, 90 ea. BOTTLE Active [id number] 4 2023 90 Pharmac y Data Transac [...] mouth) Ordered 2024 90.0 6130C-A f-C-375 Th [facility]- [facility] Viagra 100 mg oral tablet 1 tab(s), Oral, As Directed , take 1 hour before sexual activity , no more than 1 dose per 24 hours, # 18 tab(s), 0 total refill(s ), Maintena nce, *[place] max of 18 doses per 90 days* Oral (given by mouth) Ordered 2024 18.0 6130C-A f-C-375 Th [facility]- [facility] Allergies, Adverse Reactions, Alerts Combined list of allergies from Department of Defense and Veterans Affairs facilities. It does not include entries that were removed or entered in error. Substance Category Reaction Severity Reaction type Status Date Reported Comments Source NO OUTPUT FOR NCID [id number] Drug allergy (disorder) active 10/20/2007 [facility] [place] Immunizations Combined list of available immunizations from the Department of Defense and Veterans Affairs facilities. Immunization Series Date Given Administered By Site Reaction Lot Number CVX Code Drug Computer Systems Support Specialist Status Comments Source COVID-19 vaccine(Comir jacey 12y+) 2024 [id number] 309 complet ed Result Comment: Route: Unknown Manufactu rer: OTH (PFR) 6130C-A f-C-375 Th Jan Johnson influenza, seasonal,high dose-pf 2023 JAMESRBOBCO 135 complet ed Result Comment: Route: Unknown Manufactu rer: OTH (PMC) 6130C-A f-C-375 Th Jan Johnson COVID-19 vaccine(Norman vax 12y+) 2022 JAMESRBOBCO 312 complet ed Result Comment: Route: Unknown Manufactu rer: OT (MOD) 6130C-A f-C-375 Th [facility]- [facility] RSV vaccine, preF A-preF B, recombinant 2022 [id number] 305 complet ed Result Comment: Route: Unknown Manufactu rer: OT (PFR) 6130C-A f-C-375 Th [facility]- [facility] Influenza, inj, MDCK, quadrivalent- pf 2022 JAMESRBOBCO 171 complet ed Result Comment: Route: Unknown Manufactu rer: OTH (SEQ) 6130C-A f-C-375 Th [facility]- Alex influenza, injectable, quadrivalent- pf 2021 JAMESRBOBCO 150 complet ed Result Comment: Route: Unknown Manufactu rer: OT (PMC) 6130C-A f-C-375 Th [facility]- [facility] COVID-19 vaccine(Pfize r Bival 12yr+) 2021 JAMESRBOBCO 300 complet ed Result Comment: Route: Unknown Manufactu rer: OT (PFR) 6130C-A f-C-375 Th [facility]- [facility] COVID Vaccine Moderna 2020 JAMESRBOBCO 207 complet ed Result Comment: Unit: Unknown Manufactu rer: Moderna US, Inc. (MOD) 6130C-A f-C-375 Th [facility] COVID-19, mRNA, LNP-S, PF, 100 mcg or 50 mcg dose 2020 SHANA Moderna US, Inc. (MOD) Not Given COVID-19, mRNA, LNP-S, PF, 100 mcg or 50 mcg dose DoD influenza, injectable, quadrivalent- pf 2020 JAMESRBOBCO 150 complet ed Result Comment: Unit: Unknown Manufactu rer: () 6130C-A f-C-375 Th [facility] influenza, injectable, quadrivalent, preservative free 2020 [...] Comment: Unit: Unknown Manufactu rer: () 6130C-A tate-C-375 Th [facility]- [facility] COVID-19, mRNA, LNP-S, PF, 100 mcg or 50 mcg dose 2020 ALUL,RUSHDI () Not Given COVID-19, mRNA, LNP-S, PF, 100 mcg or 50 mcg dose DoD influenza virus vaccine, inactivated 2019 JAMESRBOBCO 88 complet ed Result Comment: Unit: Unknown Manufactu rer: () 6130C-Fausto ybarra-C-375 Th [facility]- Alex influenza, recombinant, quadrivalent, injectable, preservative free 2019 ALUL, () Not Given influenza , recombina nt, quadrival ent,injec table, preservat brandon free DoD influenza, injectable, quadrivalent- pf 2018 150 [employer] complet ed influenza , injectabl e, quadrival ent-pf 11/29/18 Given Ambulat ory Pharmac y zoster vaccine, inactivated 2018 JAMESRBOBCO 187 complet ed Result Comment: Unit: Unknown Manufactu rer: () 6130C-A tate-C-375 Th [facility]- Alex zoster recombinant 2018 OTILIA NAVARRO () [...] Unknown Manufactu rer: () 6130C-A f-C-375 Th [facility]- Alex zoster recombinant 2017 OTILIA NAVARRO () Not Given zoster recombina nt DoD influenza, injectable, quadrivalent- pf 2017 150 sanofi pasteur complet ed influenza , injectabl e, quadrival ent-pf 01/24/18 Given Ambulat ory Pharmac y measles/mumps /rubella virus vaccine 2017 zzLef t Arm [id number] Merck & Company Inc complet ed measles/m umps/rube lla virus vaccine 05/10/17 Given Ambulat ory Pharmac y measles, mumps and rubella virus vaccine 1 2017 Unknown, Provider [id number] Merck (MSD) complet ed measles, mumps and rubella virus vaccine DoD influenza, injectable, quadrivalent- pf 2015 150 sanofi pasteur complet ed influenza , injectabl e, quadrival ent-pf 01/23/16 Given Ambulat ory Pharmac y influenza, injectable, quadrivalent 2015 JAMESRBOBCO 158 complet ed Result Comment: Unit: Unknown Manufactu rer: () 6130C-A f-C-375 Th [facility]- Alex influenza, injectable, quadrivalent 2015 ELADIA NEELY () Not Given influenza , injectabl e, quadrival ent DoD influenza, injectable, quadrivalent- pf 2014 150 sanofi pasteur complet ed influenza , injectabl e, quadrival ent-pf 01/06/15 Given Ambulat ory Pharmac y influenza, injectable, quadrivalent 2013 JAMESRBOBCO 158 complet ed Result Comment: Unit: Unknown Manufactu rer: () 6130C-A f-C-375 Th [facility]- Alex influenza, injectable, quadrivalent 2013 LEOBARDO NEELY () Not Given influenza , injectabl e, quadrival ent DoD influenza, seasonal, injectable 2012 zzLef t Arm [id number] 141 sanofi pasteur complet ed influenza , seasonal, injectabl e 03/14/12 Given Ambulat ory Pharmac y Influenza, seasonal, injectable 11 2012 Unknown, Provider [id number] 141 Sanofi Pasteur ([facility]) complet ed Influenza , seasonal, injectabl e DoD zoster vaccine live 2011 zzLef t Arm [id number] Merck & Company Inc complet ed zoster vaccine live 06/15/11 Given Ambulat ory Pharmac y zoster vaccine, live 1 2011 Unknown, Provider [id number] Merck (MSD) complet ed zoster vaccine, live DoD influenza, seasonal, injectable [facility] [id number] 141 sanofi pasteur complet ed influenza , seasonal, injectabl e 03/16/11 Given Ambulat ory Pharmac y Influenza, seasonal, injectable 10 2011 Unknown, Provider [id number] 141 Sanofi Pasteur ([facility]) complet ed Influenza , seasonal, injectabl e DoD influenza virus vaccine,split 2009 zzL t Arm [id number] 15 CSL Behring complet ed influenza virus vaccine,s plit 01/27/10 Given Ambulat ory Pharmac y influenza virus vaccine, split virus (incl. purified surface antigen)-reti red CODE 1 2009 Unknown, Provider [id number] 15 CS [employer] (CS) complet ed influenza virus vaccine, split virus (incl. purified surface antigen)- retired CODE DoD [facility],split [id number] [facility] sanofi pasteur complet ed influenza virus vaccine,s plit 05/13/08 Given Ambulat ory Pharmac y tetanus, diphtheria, acellular pertu is 2008 [facility] Arm [id number] 115 sanofi pasteur complet ed tetanus, diphtheri a, acellular pertussis 05/13/08 Given Ambulat ory Pharmac y influenza virus vaccine, split virus (incl. purified surface antigen)-reti red CODE 1 2008 Unknown, Provider [id number] 15 Sanofi Pasteur ([facility]) complet ed influenza virus vaccine, split virus (incl. purified surface antigen)- retired CODE [facility] tetanus toxoid, reduced diphtheria toxoid, and acellular pertu is vaccine, adsorbed 1 2008 Unknown, Provider [id number] 115 Sanofi Pasteur ([facility]) complet ed tetanus toxoid, reduced diphtheri a toxoid, and acellular pertussis vaccine, adsorbed DoD influenza virus vaccine,split 2004 zzLef t Arm [id number] 15 sanofi pasteur complet ed influenza virus vaccine,s plit 02/22/05 Given Ambulat ory Pharmac y influenza virus vaccine, split virus (incl. purified surface antigen)-reti red CODE 1 2004 Unknown, Provider [id number] 15 Sanofi Pasteur ([facility]) complet ed influenza virus vaccine, split virus (incl. purified surface antigen)- retired CODE DoD influenza virus vaccine, whole virus 2002 zzLef t Arm [id number] 16 sanofi pasteur complet ed influenza virus vaccine, whole virus 02/10/03 Given Ambulat ory Pharmac y influenza virus vaccine, whole virus 1 2002 Unknown, Provider [id number] 16 Dineshofi Pasteur ([facility]) complet ed influenza virus vaccine, whole virus DoD tuberculin purified protein derivative 2002 96 complet ed Patient Tolerance : Negative Ambulat ory Pharmac y tuberculin skin test; purified protein derivative solution, intradermal 1 2002 Unknown, Provider 96 Transcribed (TRS) complet ed tuberculi n skin test; purified protein derivativ e solution, intraderm al DoD influenza virus vaccine, whole virus 2001 zzLef t Arm [id number] 16 sanofi pasteur complet ed influenza virus vaccine, whole virus 02/18/02 Given Ambulat ory Pharmac y influenza virus vaccine, whole virus 1 2001 Unknown, Provider [id number] 16 Sanofi Pasteur ([facility]) complet ed influenza virus vaccine, whole virus DoD influenza virus vaccine, whole virus 1999 zzLef t Arm [id number] 16 [employer] [facility] complet ed influenza virus vaccine, whole virus 02/27/00 Given Ambulat ory Pharmac y influenza virus vaccine, whole virus 1 1999 Unknown, Provider [id number] 16 [facility] ([facility]) complet ed influenza virus vaccine, whole virus DoD tuberculin purified protein derivative 1999 zzLef t Arm [id number] 96 sanofi pasteur complet ed Patient Tolerance : Negative Ambulat ory Pharmac y tuberculin skin test; purified protein derivative solution, intradermal 1 1999 Unknown, Provider [id number] 96 Sanofi Pasteur ([facility]) complet ed tuberculi n skin test; purified protein derivativ e solution, intraderm al DoD typhoid vaccine, inactivated 1998 [id number] [facility] complet ed typhoid vaccine, inactivat ed 12/28/98 Given Ambulat ory Pharmac y influenza virus vaccine, whole virus 1998 [id number] 16 [facility] virus vaccine, whole virus 12/28/98 Given Ambulat ory Pharmac y tuberculin purified protein derivative 1998 96 complet ed Patient Tolerance : Negative Ambulat ory Pharmac y influenza virus vaccine, whole virus 1 1998 Unknown, Provider [id number] 16 [facility] (CON) complet ed influenza virus vaccine, whole [...] al DoD influenza virus vaccine, whole virus [id number] [facility] complet ed influenza virus vaccine, whole virus 12/31/97 Given Ambulat ory Pharmac y tuberculin purified protein derivative [id number] [facility] complet ed Patient Tolerance : Negative Ambulat ory Pharmac y influenza virus vaccine, whole virus 2 1997 Unknown, Provider [id number] 16 [employer] (CON) complet ed influenza virus vaccine, whole virus DoD tuberculin skin test; purified protein derivative solution, intradermal 1 1997 Unknown, Provider [id number] [facility] complet ed tuberculi n skin test; purified protein derivativ e solution, intraderm al DoD hepatitis A adult vaccine 1997 [id number] Merck & Company Inc complet ed hepatitis A adult vaccine 04/08/97 Given Ambulat ory Pharmac y tetanus-dipht h toxoids (Td) adult/adol 1997 [id number] 09 [facility] complet ed tetanus-d iphth toxoids (Td) adult/ado l 04/08/97 Given Ambulat ory Pharmac y tetanus and diphtheria toxoids, adsorbed, preservative free, for adult use (2 Lf of tetanus toxoid and 2 Lf of diphtheria toxoid) 2 1997 Unknown, Provider [id number] 09 [facility] ed tetanus and diphtheri a toxoids, adsorbed, preservat brandon free, for adult use (2 Lf of tetanus toxoid and 2 Lf of diphtheri a toxoid) DoD hepatitis A vaccine, adult dosage 2 1997 Unknown, Provider [id number] Merck (MSD) complet ed hepatitis A vaccine, adult dosage DoD influenza virus vaccine, whole virus 1996 [id number] 16 [facility] complet ed influenza virus vaccine, whole virus 01/05/97 Given Ambulat ory Pharmac y influenza virus vaccine, whole virus 1 1996 Unknown, Provider [id number] [facility] virus vaccine, whole virus [facility] meningococcal polysaccharid e (MPSV4) 1996 [id number] 32 [facility] meningoco ccal polysacch aride (MPSV4) 10/06/96 Given Ambulat ory Pharmac y meningococcal polysaccharid e vaccine (MPSV4) 1 1996 Unknown, Provider [id number] [facility] ed meningoco ccal polysacch aride [...] parentera l, other than acetone-k illed, dried [facility] hepatitis A vaccine, adult dosage 1996 Unknown, Provider 52 () complet ed hepatitis A vaccine, adult dosage [facility] tuberculin skin test; purified protein derivative solution, intradermal 1 1996 Unknown, Provider 96 () complet ed tuberculi n skin test; purified protein derivativ e solution, intraderm al [facility] tetanus-dipht h toxoids (Td) adult/adol 1987 09 complet ed tetanus-d iphth toxoids (Td) adult/ado l 07/01/87 Given Ambulat ory Pharmac y tetanus and diphtheria toxoids, adsorbed, preservative free, for adult use (2 Lf of tetanus toxoid and 2 Lf of diphtheria toxoid) 1 1987 Unknown, Provider 09 () complet ed tetanus and diphtheri a toxoids, adsorbed, preservat brandon free, for adult use (2 Lf of tetanus toxoid and 2 Lf of diphtheri a toxoid) [facility] measles/mumps /rubella virus vaccine 1977 [id number] 03 [...] ed measles, mumps and rubella virus vaccine [facility] Results Combined list of recent chemistry, hematology and other laboratory results from Department of Defense and Veterans Affairs, ranging from 15 months to all on record, depending upon the facility. Order Name Results Value Reference Range Date Interpretation Specimen Comments Source Chemistry Potassium Lvl 4.1 mmol/L 3.5 - 5.1 07/06 N 0055A-[address] [place] [address]- Alex Chemistry Sodium 142 mmol/L 136 - 145 07/06 N 0055A-[address] [place] [address]- [facility] Chemistry Calcium 8.9 mg/dL 8.4 - 10.2 07/06 N 0055A-[address] [place] [address]- [facility] Chemistry Chloride 106 mmol/L 98 - 107 07/06 N 0055A-[address] [place] [address]- [facility] Chemistry AGAP 9.00 0.00 - 15.00 07/06 N 0055A-[address] [place] [address]- [facility] Chemistry CO2 27 mmol/L 22 - 29 07/06 N 0055A-[address] [place] [address]- [facility] Chemistry BUN 24 mg/dL 8 - 26 07/06 N 0055A-[address] [place] [address]- [facility] Chemistry Creatinine Level 1.00 mg/dL 0.72 - 1.25 07/06 N 0055A-[address] [place], [place] [address] Chemistry BUN/Creat Ratio 24 mg/dL 12 - 20 07/[address] [place] [address] Chemistry Glucose Lvl 113 mg/dL 74 - 99 07/[address] [place] [address] Chemistry Ur Microalb/Ur Creat Ratio 4 mg/gCr 07/[address] [place] [address] Ur Creat 156 mg/dL 07/[address] [place] [address] Chemistry Ur Microalbumi n 6 mg/L 07/06 N Interpretive Data: To minimize intra-indivi dual variation, analysis of three random urine samples collected over the course of a week has also been recommended. [address] [place] [address] Chemistry eAvg Glucose 108 mg/dL 07/[address] [place] [address] Chemistry Hemoglobin A1c 5.4 % 4.0 - [...] diabetes. Because studies have repeatedly shown that umq-he-mkekg ol diabetes results in complication s from the disease, the goal for people with diabetes is a hemoglobin A1c less than 7%. The higher the hemoglobin A1c, the higher the risks of developing complication s related to diabetes. If confirmation is needed, consider recalling the patient and ordering Hemoglobin Electrophore sis. [address] [place] [address] Chemistry Triglycerid es 54 mg/dL 7 - 149 07/06 N Interpretive Data: AGES 0-9: Desirable: < 75 mg/dL Borderline High: 75-99 mg/dL High: >/= 100 mg/dL AGES 10-19: Desirable: < 90 mg/dL Borderline High: 90-129 mg/dL High: >/= 130 mg/dL ADULTS: Desirable: < 150 mg/dL Borderline High: 150-199 mg/dL High: >/= 240 mg/dL Very High: >/= 500 mg/dL [facility] Chemistry HDL Cholesterol 54 mg/dL 40 - 59 07/06 N Interpretive Data: HDL (HIGH DENSITY LIPOPROTEIN) : ADULTS: Low: < 40 mg/dL High: >/= 60 mg/dL AGES 0 -19: Low: < 40 mg/dL Borderline Low: 40 - 45 mg/dL Acceptable: > 45 mg/dL [address] [place] [address] Chemistry LDL/HDL 1 07/[address] [place] [address] Chemistry LDL 77 mg/dL 100 - 130 07/06 L Interpretive Data: AGES 0-19: Desirable: < 110 mg/dL Borderline High: 110-129 mg/dL High: >/= 130 mg/dL ADULTS: Desirable: <100 mg/dL Near/above optimal: 100-130 mg/dL Borderline High: 131-159 mg/dL High: 160-189 mg/dL Very High: 190 mg/dL [address] [place] [address] Chemistry Cholesterol Total 138 mg/dL 07/06 N Interpretive Data: According to the [place] [employer]: AGES 0-19: Desirable: < 170 mg/dL Borderline High: 170-199 mg/dL High Blood Cholesterol: >/= 200 mg/dL ADULTS: Desirable < 200 mg/dL Borderline High: 200-239 mg/dL High Blood Cholesterol: >/= 240 mg/dL [address] [place] [address] Chemistry Chol/HDL 3 mg/dL 07/[address] [place] [address] Chemistry eGFR CKD EPI 83 mL/min /1.73_ [...] Source Blood Pressure Manual Automatic 05/14/2024 20:01:00 1546F-Uy-C-[facility]Th [facility] Mean Arterial Pressure, Calc 103 mm[Hg] 05/14/2024 20:01:00 5790C-Gw-F-3 [facility] Systolic Blood Pressure 152 mm[Hg] 05/14/2024 20:01:00 1018N-Ou-Y-375Th [facility] Diastolic Blood Pressure 79 mm[Hg] 05/14/2024 20:01:00 8023Q-Ge-C-375Th [facility] Peripheral Pulse Rate 69 bpm 05/14/2024 20:01:00 0447X-Hy-H-375Th [facility] Respiratory Rate 18 br/min 05/14/2024 20:01:00 8412S-Nn-K-375Th [facility] BP Site Right arm 05/14/2024 20:01:00 6130C -Af-C-375Th [facility] Encounters Combined list of: 1) Encounters from Department of Veterans Affairs facilities going backup to the last 18 months, not all [place] inpatient encounters are included; 2) Encounters from the [employer] facilities going backup to 280 months. Location Location Details Encounter Type Encounter Number Reason For Visit Attending Provider ADM Date DC Date Status Disposition Source [address] [place] [address] [place] [facility] [place] [facility] Tm Blue) OUTPATIENT [id number] f/u on lab results CECILIA SORIANO 08/08 Released w/o Limitations [address] [place] [address] [place] [facility] [place] [facility] Tm Blue) [address] [place] [address] [place] [facility] [place]Car diologyPr ocedure Schedules ) OUTPATIENT [id number] ESSENTI AL HYPERTE ILEANA FU 09/15 Released w/o Limitations [address] [place] [address] Alex B [facility] [place]C ardikassandra gyProgordon dure Schedul es) [address] [place] [address] [place] [facility] [place] [facility] Tm Blue) OUTPATIENT [id number] f/u echo CECILIA SORIANO 10/31 Released w/o Limitations [address] [place] [address] [place] [facility] [place] [facility] Tm Blue) [address] [place] [address] Alex WRAEB [facility] [place] [facility] Tm Blue) TELE CONSULT [id number] letter for medical authori CECILIA Green 12/[address] [place] [address] [place] [facility] [place] [facility] Tm Blue) [address] [place] [address] [place] [facility] [place] [facility] Tm Blue) OUTPATIENT [id number] f/u on Bp medicat ion CECILIA SORIANO 02/06 Released w/o Limitations [address] [place] [address] [place] [facility] [place] [facility] Tm Blue) [address] [place] [address] [place] [facility] [place] [facility] T[facility] Blue) OUTPATIENT [id number] foot/to e pain WILL FELDMAN 02/22 Released w/o Limitations [address] [place] [address] [place] [facility] [place] [facility] Tm Blue) [address] [place] [address] [place] [facility] [place] [facility] Tm Blue) OUTPATIENT [id number] fu broken toe WILL FELDMAN 03/14 Released w/o Limitations [address] [place] [address] [place] [facility] [place] [facility] Tm Blue) [address] [place] [address] Alex [place]IT [place] [place] [facility] T[facility] Blue) OUTPATIENT [id number] PHYSICA L/[facility] BRYAN GÓMEZ Erin 05/25 Released w/o Limitations [address] [place] [address] Alex WAREB [place] [facility] Tm Blue) [address] [place] [address] Alex PETTIT [place] [facility] T[facility] Blue) OUTPATIENT [id number] f/u lower back pain MANE SYLVESTER 05/03 Released w/o Limitations [address] [place] [address] Alex WAREB [place] [facility] Tm Blue) [address] [place] [address] Alex PETTIT [place] [facility] T[facility] Blue) OUTPATIENT [id number] f/u kidney stone/B P SHARMIN GREENBERG 05/10 Released w/o Limitations [address] [place] [address] Alex PETTIT [place] [facility] T[facility] Blue) [address] [place] [address] Alex PETTIT [place]Opt ometry[place] OUTPATIENT [id number] eye exam YOAV BARRIOS 05/20 Released w/o Limitations [address] [place] [address] Alex PETTIT [place]O ptometr y) [address] [place] [address] Alex PETTIT [place] [place] [facility] Tm Green) TELE CONSULT [id number] premed for dental ANN-MARIE, BRANDON Gennaro 07/[address] [place] [address] Alex PETTIT [place] [facility] Tm Green) [address] [place] [address] Alex [facility]TIT [place] [place] [facility] T[facility] Blue) OUTPATIENT [id number] f/u on bp SHARMIN GREENBERG 07/09 Released w/o Limitations [address] [place] [address] Alex WAREB [place] [facility] Tm Blue) [address] [place] [address] Alex WAREB [place] [place] [facility] Tm Blue) TELE CONSULT [id number] form for FAA SHARMIN GREENBERG 07/[address] [place] [address] Alex WAREB [place] [facility] Tm Blue) [address] [place] [address] Alex WAREB [place] [place] [facility] Tm Blue) TELE CONSULT [id number] RYAN Bangura 07/[address] [place] [address] [employer] ([facility] OF [facility] Tm Blue) [address] [place] [address] [employer] [place] [place] [facility] Tm Blue) OUTPATIENT [id number] f/u GERD/Mu SHARMIN Mendoza 07/30 Released w/o Limitations [address] [place] [address] [employer] [place] [facility] Tm Blue) [address] [place] [address] [employer] [place] [place] [facility] Tm Green) OUTPATIENT [id number] blood pressur e refill poss NEAL Flores 06/30 Released w/o Limitations [address] [place] [address] Alex CHAZB ([facility] [facility] Tm Green) [address] [place] [address] Alex CH[employer] [place] Tm Blue) OUTPATIENT [id number] B/P check BRYAN SIERRA 10/19 Released w/o Limitations [address] [place] [address] Alex WAREB [place] [facility] T[facility] Blue) [address] [place] [address] [employer] [facility] Tm Green) OUTPATIENT [id number] [facility]# f/u eval for bp JOSEFA LÓPEZ 10/27 Released w/o Limitations [address] [place] [address] [employer] [place] [facility] Tm Green) [address] [place] [address] [employer] [place] T[facility] Blue) OUTPATIENT [id number] MATT Aden 05/13 Released w/o Limitations [address] [place] [address] [employer] [place] [facility] Blue) [address] [place] [address] [employer] [facility] Tm Blue) OUTPATIENT [id number] daycare physica l [phone] BREE MEYERS 06/23 Released w/o Limitations [address] [place] [address] [employer] [place] [facility] T[facility] Blue) [address] [place] [address] [employer] [place] [place] [facility] Tm Blue) TELE CONSULT [id number] Medicat ion Request YVONNE KNAPP 07/[address] [place] [address] [employer] [place] [facility] T[facility] Blue) [address] [place] [address] Alex WAREB [place] [place] [facility] Tm Blue) OUTPATIENT [id number] hyperte LEOBARDO Nascimento 11/04 Released w/o Limitations [address] [place] [address] [employer] [place] [facility] Tm Blue) [address] [place] [address] [employer] ([facility] [place] [facility] Tm Green) TELE CONSULT [id number] Renewal of YVONNE Daniel 12/[address] [place] [address] Alex WAREB [place] [facility] Tm Green) [address] [place] [address] Alex WAREB [place] Tm Blue) TELE CONSULT [id number] med YVONNE Aguilar 04/[address] [place] [address] Alex PETTIT [place] [facility] T[facility] Blue) [address] [place] [address] Alex WAREB [facility] Tm Blue) OUTPATIENT [id number] cough x over 1 week [phone] YVONNE KNAPP 06/02 Released w/o Limitations [address] [place] [address] Alex WAREB [place] [facility] T[facility] Blue) [address] [place] [address] Alex WARE[facility] T[facility] Blue) OUTPATIENT [id number] sinus infecti on x 1 month [phone] YVONNE KNAPP 06/21 Released w/o Limitations [address] [place] [address] [employer] [place] [facility] Tm Blue) [address] [place] [address] [employer] [facility] [place] [facility] Tm Blue) TELE CONSULT [id number] YVONNE Aguilar 07/[address] [place] [address] Alex [employer] ([facility] [facility] Tm Blue[facility] [address] [place] [address] [employer] ([facility]Sco [facility] F[facility] Tm Green) TELE CONSULT [id number] Renew preet khan, contact : [phone] DOUG GO 11/[address] [place] [address] [employer] [place] [facility] Tm Green) [address] [place] [address] Alex PETTIT [place]Sco tt OF [facility] Tm Blue) TELE CONSULT [id number] Needs f/u for blood pressur e and bloodwo rk/ Karen eckertt YVONNE KNAPP 11/[address] [place] [address] Alex PETTIT [place] [facility] Tm Blue) [address] [place] [address] Alex WAREB [place]Sco tt OF Fam Res Tm Green) TELE CONSULT [id number] paperwo rk YVONNE KNAPP 11/[address] [place] [address] Alex PETTIT [place] OF Fam Res Tm Green) [address] [place] [address] Alex PETTIT [place] Tm Green) OUTPATIENT [id number] FLU SHOT MARTIN ADAMSON 01/27 Released w/o Limitations [address] [place] [address] Alex PETTIT [place] [facility] Fam Res Tm Green) [address] [place] [address] Alex PETTIT [place] Tm Blue) TELE CONSULT [id number] med refill - Gracelear y - cad/pmh YVONNE KNAPP 07/[address] [place] [address] Alex PETTIT [place] [facility] Tm Blue) [address] [place] [address] Alex PETTIT [place] Tm Blue) TELE CONSULT [id number] [facility]98/cad YVONNE Esparza 09/[address] [place] [address] Alex PETTIT [place] OF [facility] Tm Blue) [address] [place] [address] Alex PETTIT [place] Tm Blue) TELE CONSULT [id number] [facility] - [facility]-7 998/cad NEAL Bunch 10/[address] [place] [address] Alex PETTIT [place] [facility] Tm Blue) [address] [place] [address] Alex PETTIT [place] Tm Blue) OUTPATIENT [id number] follow up blood pressur e [phone] YVONNE KNAPP 11/06 Released w/o Limitations [address] [place] [address] Alex PETTIT [place] [facility] Tm Blue) [address] [place] [address] [employer] [place]S[facility] Tm Blue) OUTPATIENT [id number] YVONNE Osullivan 03/16 Released w/o Limitations [address] [place] [address] [employer] [place] OF [facility] Tm Blue) [address] [place] [address] [employer] [place] Tm Green) OUTPATIENT [id number] CARLOS Robles 06/14 Released w/o Limitations [address] [place] [address] [employer] [facility] [place] [facility] Tm [place]) [address] [place] [address] [employer] [place] Tm Blue) TELE CONSULT [id number] Notes Entered by: NEAL CANADA 09 Oct 2011 1406 ------- ------- ------- ------- -- Tcon for med refill Dr Velazquez ph [phone] cad dmNEAL Solorio 10/[address] [place] [address] [employer] [facility] [place] [facility]) [address] [place] [address] [employer] [facility] [place] [facility] Tm Blue) OUTPATIENT [id number] f/u for medicat ion [phone] MAEGAN NAVARRO 11/05 Released w/o Limitations [address] [place] [address] [employer] [place] [facility] Tm Blue) [address] [place] [address] [employer] [facility] [place] [place] [facility] Tm Blue) OUTPATIENT [id number] lt wrist mole BRENDEN-PI PRASHANTH WEST 12/10 Released w/o Limitations [address] [place] [address] [employer] [place] [facility] Tm Blue) [address] [place] [address] [employer] [facility] [place] [place] [facility] Tm Green) OUTPATIENT [id number] Macules And Papules ZENA GORDON 12/24 Released w/o Limitations [address] [place] [address] [employer] [place] OF Fam Res Tm Green) [address] [place] [address] [employer] [facility] [place] [facility] Tm Blue) OUTPATIENT [id number] Notes Entered by: SHERRELL CODY 14 Mar 2012 1518 ------- ------- ------- ------- -- flu shot PRASHANTH SANTIAGO 03/14 Released w/o Limitations [address] [place] [address])(S cott [facility] Tm Blue) [address] [place] [address])(Sco tt [facility] Tm Blue) TELE CONSULT [id number] Notes Entered by: NEAL CANADA 06 May 2012 1041 ------- ------- ------- ------- -- Referra erin Novoa ph [phone] TEODORO MERRITT 05/[address] [place] [address])(S cott [facility] Tm Blue) [address] [place] [address])(Sco tt [facility] Tm Blue) TELE CONSULT [id number] Notes Entered by: Gennaro SOTO 13 Aug 2012 1242 ------- ------- ------- ------- -- Med refill/ / Dr. Brenden Novoa/ // PRASHANTH SANTIAGO 08/[address] [place] [address])(S cott OF FAMRES Tm Blue) [address] [place] [address])(Sco tt [facility] Tm Blue) TELE CONSULT [id number] Notes Entered by: CARLOS RESENDEZ 10 Sep 2012 0901 ------- ------- ------- ------- -- Nurse advice/ Lab request /Dr. Brenden Novoa/ MARÍA MILLS 09/[address] [place] [address])(S cott [facility] Tm Blue) [address] [place] [address])(Sco tt [facility] Tm Blue) TELE CONSULT [id number] Notes Entered by: PRASHANTH PATTERSON 18 Sep 2012 1139 ------- ------- ------- ------- -- labs PRASHANTH SANTIAGO 09/[address] [place] [address] Alex [facility])(S cott [facility] Tm Blue) [address] [place] [address])(Sco tt [facility] Tm Blue) OUTPATIENT [id number] FAA zekea erin and form signed/ PRASHANTH SANTIAGO 09/22 Released w/o Limitations [address] [place] [address] Alex [facility])(S cott [facility] Tm Blue) [address] [place] [address])(Sco tt [facility] Tm Blue) TELE CONSULT [id number] Notes Entered by: NEWTON MATHIAS 24 Sep 2012 1331 ------- ------- ------- ------- -- Network Results -UROLOG Y 3 PRASHANTH SANTIAGO 09/[address] [place] [address] Alex [facility]S cott [facility] Tm Blue) [address] [place] [address])(Sco tt [facility] Tm Blue) TELE CONSULT [id number] Notes Entered by: Dustin SOTO 11 Dec 2012 0908 ------- ------- ------- ------- -- Med refill/ Brenden Novoa/ [phone] JENA GONSALEZ 12/[address] [place] [address] Alex [facility]S [facility] Tm Blue) [address] [place] [address])(Sco tt [facility] Tm Blue) TELE CONSULT [id number] Notes Entered by: LUCIANO SHEEHAN 26 Jan 2013 1317 ------- ------- ------- ------- -- Refer l renewal to Urology HERMELINDO SHEEHAN I 01/[address] [place] [address] Alex B [facility] [facility] Tm Blue) [address] [place] [address])([facility] Fam Res Tm Gold) OUTPATIENT [id number] f/u BP check and referra - [phone] PRASHANTH SANTIAGO 07/02 Released w/o Limitations [address] [place] [address] Alex [facility])(S [facility] Fam Res Tm Gold) [address] [place] [address])([facility] Fam Res Tm Gold) TELE CONSULT [id number] Notes Entered by: Dustin SOTO 10 Jul 2013 1338 ------- ------- ------- ------- -- Medicat ion is not in system/ Brenden Novoa/ [phone] MISTY NAVARRO 07/[address] [place] [address])(S [facility] Fam Res Tm Gold) [address] [place] [address])([facility] Fam Res Tm Gold) TELE CONSULT [id number] Notes Entered by: RICH DICK 05 Oct 2013 1048 ------- ------- ------- ------- -- Med refill Brenden Flores ISAIAH REDDY 10/[address] [place] [address])(S [facility] Fam Res Tm Gold) [address] [place] [address])([facility] Fam Res Tm Gold) OUTPATIENT [id number] low back pain, chronic PRASHANTH SANTIAGO 10/20 Released w/o Limitations [address] [place] [address] [employer] [facility])(S [facility] Fam Res Tm Gold) [address] [place] [address])([facility] Fam Res Tm Gold) TELE CONSULT [id number] Notes Entered by: Gennaro SOTO 27 Jul 2014 0949 ------- ------- ------- ------- -- Med refill EDEN CAMEJO 07/27 Referred for Appointment [address] [place] [address] [address] [facility] F[facility] Tm Gold) [address] [place] [address] [facility]Sco tt [facility] Fam Res Tm Gold) OUTPATIENT [id number] [facility] follow up [phone] MITA ALDRIDGE 08/13 Released w/o Limitations [address] [place] [address] [facility] Fam Res Tm Gold) [address] [place] [address] Alex [facility])(Sco tt [facility] Fam Res Tm Gold) TELE CONSULT [id number] Notes Entered by: MITA ALDRIDGE 03 Sep 2014 0829 ------- ------- ------- ------- -- Lab results EDEN CAMEJO 09/03 Referred for Appointment [address] [place] [address] [facility] Fam [facility] Tm Gold) [address] [place] [address] Alex [facility])(Sco tt [facility] Tm Blue) TELE CONSULT [id number] Notes Entered by: BRANDON ALICIA 21 Sep 2014 0826 ------- ------- ------- ------- -- Network Results - CARDIOL OGY / ECHO - 09/17/14 AD SAVAGE 09/[address] [place] [address] [facility] Tm Blue) [address] [place] [address] Alex [facility])(Sco tt [facility] Tm Blue) TELE CONSULT [id number] Notes Entered by: AMMON FLORENTINO 30 Sep 2014 0637 ------- ------- ------- ------- -- Network Results -CARDIO LOGY 09/24/14 MARY ALVAREZ 09/[address] [place] [address] Alex [facility] FAM[facility] Tm Blue) [address] [place] [address] [facility]Sco tt [facility] Fam Res Tm Gold) TELE CONSULT [id number] Notes Entered by: ALE MACKEY 05 Oct 2014 0938 ------- ------- ------- ------- -- Cardiol ogy ReferIRAJ Hallman 10/05 Referred for Appointment [address] [place] [address])([facility] Fam Res Tm Gold) [address] [place] [address])([facility] FAMRES Tm Blue) TELE CONSULT [id number] Notes Entered by: AMMON FLORENTINO 07 Oct 2014 0943 ------- ------- ------- ------- -- Network Results -CARDIO LOGY 10/06/14 MINERVA MICHAELS 10/[address] [place] [address])([facility] FAMRES Tm Blue) [address] [place] [address])([facility] Fam Res Tm Gold) OUTPATIENT [id number] F/U GERD MITA ALDRIDGE 11/04 Released w/o Limitations [address] [place] [address])([facility] Fam Res Tm [facility]) [address] [place] [address])([facility] Fam Res Tm Gold) TELE CONSULT [id number] Notes Entered by: [address] 30 Dec 2014 1010 ------- ------- ------- ------- -- Network Results -GASTRO ENTEROL OGY 5 MITA ALDRIDGE 12/[address] [place] [address])([facility] Fam Res Tm Gold) [address] [place] [address])([facility] Peds Team Randy) TELE CONSULT [id number] Notes Entered by: BRANDON ALICIA 11 Jan 2015 1243 ------- ------- ------- ------- -- Network Results - AUDIOLO GY- 5 ALMITA CLEVELAND 01/[address] [place] [address])([facility] Peds Team Randy) [address] [place] [address])([facility] Fam Res Tm Green) TELE CONSULT [id number] Notes Entered by: DELBERT MOSLEY 11 Jan 2015 1433 ------- ------- ------- ------- -- Network results Cardiol ogy MARY ALVAREZ 01/[address] [place] [address] Alex [facility])([facility] Fam Res Tm Green) [address] [place] [address] Alex [facility])([facility] Fam Res Tm Gold) TELE CONSULT [id number] Notes Entered by: [address] 26 Jan 2015 0920 ------- ------- ------- ------- -- Network Results -GASTRO ENTEROL OGY MARY MCHUGH 01/[address] [place] [address] Alex [facility])([facility] Fam Res Tm Gold) [address] [place] [address] Alex [facility])([facility] Fam Res Tm Gold) TELE CONSULT [id number] Notes Entered by: COMFORT LANE 28 Jan 2015 0901 ------- ------- ------- ------- -- Network Results -GASTRO ENTEROL OGY SDMARY PARRA 01/[address] [place] [address] Alex [facility])([facility] Fam Res Tm Gold) [address] [place] [address] Alex [facility])([facility] Fam Res Tm Gold) TELE CONSULT [id number] Notes Entered by: ANISH CAMEJO 04 Oct 2015 1624 ------- ------- ------- ------- -- Preet Mccormick / EDEN Claros 10/03 Referred for Appointment [address] [place] [address] Alex [facility])([facility] Fam Res Tm Gold) [address] [place] [address] Alex [facility])([facility] Fam Res Tm Gold) TELE CONSULT [id number] Notes Entered by: WAGNER GA 28 Oct 2015 0709 ------- ------- ------- ------- -- Concern of Somethi ng Coughed Up / Brenden -Sandra / - sggennaro VICE DONAVANLORE Rodriguez 10/[address] [place] [address] Alex [facility])(S cott [facility] Fam Res Tm Gold) [address] [place] [address] Alex [facility])(Sco tt [facility] Fam Res Tm Green) OUTPATIENT [id number] cough [phone] SATHISH GARCIA 10/30 Released w/o Limitations [address] [place] [address] Alex [facility])(S [facility] Fam Res Tm Green) [address] [place] [address] Alex [facility])(Sco tt [facility] Fam Res Tm Gold) TELE CONSULT [id number] Notes Entered by: VIRGIL STONER 04 Nov 2015 0859 ------- ------- ------- ------- -- Preet wilhelm/Myra Flores/6 [phone] SATHISH GARCIA 11/[address] [place] [address] Alex [facility])([facility] Fam Res Tm Gold) [address] [place] [address])(Sco tt [facility] Fam Res Tm Gold) TELE CONSULT [id number] Notes Entered by: COMFORT LANE 16 Nov 2015 1113 ------- ------- ------- ------- -- Network Results -CARDIO LOGY 11/02/15 SDG YONY MERCEDES 11/[address] [place] [address] Alex [facility])(S [facility] Fam Res Tm Gold) [address] [place] [address] Alex [facility])(Sco tt [facility] Fam Res Tm Green) TELE CONSULT [id number] Notes Entered by: JOSE ANGEL RAMIREZ 22 Nov 2015 1714 ------- ------- ------- ------- -- Path results of nose specime SATHISH Randall 11/[address] [place] [address] Group Alex [facility]m Green) [address] [place] [address] Alex [facility]Sco tt [facility] Fam Res Tm Green) TELE CONSULT [id number] Notes Entered by: JOSE ANGEL RAMIREZ 29 Nov 2015 1242 ------- ------- ------- ------- -- CT Sinus SATHISH GARCIA 11/[address] [place] [address] Alex [facility])(S [facility] Fam Res Tm Green) [address] [place] [address] Alex [facility])(Med ication Refill Clinic) TELE CONSULT [id number] Notes Entered by: WAGNER GA 01 Feb 2016 1007 ------- ------- ------- ------- -- Med Renewal / Brenden Novoa / - EDEN Santos 01/31 Released w/o Limitations [address] [place] [address] Alex [facility]) [address] [place] [address] Alex [facility])(Sco tt [facility] Fam Res Tm Gold) OUTPATIENT [id number] annual follow up, meds BRENDEN-PRASHANTH STOKES 02/26 Released w/o Limitations [address] [place] [address] Alex [facility]S [facility] Fam Res Tm Gold) [address] [place] [address] Alex [facility]Sco tt [facility] Fam Res Tm Gold) TELE CONSULT [id number] Notes Entered by: JESS GABRIEL 16 Aug 2016 0833 ------- ------- ------- ------- -- Referra l Renewal /med change/ Heidy romeo/ /EDNE Ann 08/16 Referred for Appointment [address] [place] [address] Alex [facility] Fam Res Tm Gold) [address] [place] [address] Alex [facility])(Sco tt [facility] FAM[facility] Tm Blue) TELE CONSULT [id number] Notes Entered by: COMFORT LANE 03 Oct 2016 0949 ------- ------- ------- ------- -- Network Results -UROLOG Y 08/31/16 JAY JAY KRUEGER 10/[address] [place] [address] Alex [facility])(S cott [facility] Blue) [address] [place] [address] Alex [facility])(Sco tt [facility] Blue) TELE CONSULT [id number] Notes Entered by: JESS GABRIEL 26 Oct 2016 1327 ------- ------- ------- ------- -- Referra l Anny /Brodie brito/[phone] 9/[facility] SHELDON GARZA 10/26 Other Not Elsewhere Classified [address] [place] [address] Alex [facility])(S cott [facility] Blue) [address] [place] [address] Alex [facility])(Sco tt [facility] Blue) OUTPATIENT [id number] Medicat ion Renewal s, BP F/U, Colonos copy ref [id number] JAY JAY CORONA 11/06 Released w/o Limitations [address] [place] [address] Alex [facility])(S cott [facility] [address] [place] [address] Alex [facility])(Sco tt [facility] Blue) TELE CONSULT [id number] Notes Entered by: JESS GABRIEL 16 Nov 2016 1252 ------- ------- ------- ------- -- Med questio khadra/Rafi schaefer/[phone] 98/[facility] EDEN CAMEJO 11/16 Referred for Appointment [address] [place] [address] Alex [facility])(S cott [facility] Tm Blue) [address] [place] [address] Alex [facility])(Sco tt [facility] Blue) TELE CONSULT [id number] Notes Entered by: Micheal YAN 10 Dec 2016 1043 ------- ------- ------- ------- -- Network results Cardiol ogy 11/29/16 TSJAY JAY JOY 12/[address] [place] [address] Alex [facility]S cott [facility] FAMRES Tm Blue) [address] [place] [address] Alex [facility])(Sco tt [facility] FAMRES Tm Blue) TELE CONSULT [id number] Notes Entered by: JESS GABRIEL 19 Dec 2016 1424 ------- ------- ------- ------- -- Colonos copy questio n/Rafi schaefer/[phone] EDEN Roy 12/19 Referred for Appointment [address] [place] [address] Alex [facility])(S cott [facility] FAMRES Tm Blue) [address] [place] [address] Alex [facility])(Sco tt [facility] Fam Res Tm Green) OUTPATIENT [id number] Notes Entered by: CAMRYN SARMIENTO 27 Feb 2017 1041 ------- ------- ------- ------- -- walking throat culture JEMAL MEJIA 02/27 Released w/o Limitations [address] [place] [address] Alex [facility])(S cott [facility] Fam Res Tm Green) [address] [place] [address] Alex [facility])(Sco tt [facility] FAMRES Tm Blue) OUTPATIENT [id number] Cough/c hest congest ion/hea dache [phone] ALONDRA BYCOSTA 03/15 Released w/o Limitations [address] [place] [address] Alex [facility])(S cott [facility] FAMRES Tm Blue) [address] [place] [address] Alex [facility])(Sco tt [facility] FAMRES Tm Blue) OUTPATIENT [id number] f.u on back spasm [id number] COSTA SOMERS 04/19 Released w/o Limitations [address] [place] [address] Alex [facility])(S cott [facility] FAMRES Tm Blue) [address] [place] [address] Alex [facility])(Sco tt [facility] FAMRES Tm Blue) TELE CONSULT [id number] Notes Entered by: JESS GABRIEL 15 Nov 2017 1246 ------- ------- ------- ------- -- Med Renewal /Brodie brito/[phone] 8/shantanu CAMEJO EDEN L 11/15 Referred for Appointment [address] [place] [address] Group Alex [facility]S [facility] Tm Blue) [address] [place] [address] Alex B [facility]Sco tt [facility] Blue) TELE CONSULT [id number] Notes Entered by: SINAI GRIJALVA 19 Nov 2017 1521 ------- ------- ------- ------- -- Ref renewal /brodie brito/[phone] EDEN Boucher 11/19 Referred for Appointment [address] [place] [address] Alex [facility])([facility] Blue) [address] [place] [address])(Sco tt [facility] Blue) TELE CONSULT [id number] Notes Entered by: JESS GABRIEL 10 Jan 2018 0917 ------- ------- ------- ------- -- STAT Referra erin Shewrood/10 Jan 2018/Rosana callaway/ /dustin CAMEJO EDEN L 01/10 Referred for Appointment [address] [place] [address] Group Alex [facility])([facility] Tm Blue) [address] [place] [address] Alex B [facility]Sco tt [facility] Tm Blue) TELE CONSULT [id number] Notes Entered by: SHIRLEY FOX 12 Mar 2018 1312 ------- ------- ------- ------- -- Rx renewal - Heidy Gonsalez [phone] - tsg SHELDON GARZA 03/12 Medication Refill Forwarded [address] [place] [address] Alex [facility] Blue) [address] [place] [address] Alex [facility])(Sco tt [facility] Tm Blue) TELE CONSULT [id number] Notes Entered by: VIRGIL STONER 25 Aug 2018 0956 ------- ------- ------- ------- -- Refer l Renewal Request (appt 29 August)/Dustin avalos / (sharlene) LEVI PERKINS 08/25 Referred for Appointment [address] [place] [address])(S cott [facility] FAMRES Tm Blue) [address] [place] [address])(Sco tt [facility] Tm Blue) TELE CONSULT [id number] Notes Entered by: Rao MAI 05 Sep 2018 0855 ------- ------- ------- ------- -- Network results Urology 019 INOCENCIO JAIN 09/05 Referred for Appointment [address] [place] [address])(S cott [facility] FAMRES Tm Blue) [address] [place], [place] [address]B [facility]Sco tt [facility] FAMRES Tm Blue) TELE CONSULT [id number] Notes Entered by: GERMAN ALCAZAR RET 18 Nov 2018 0948 ------- ------- ------- ------- -- Rx Anny /Venu n/ RONEN Walter 11/18 Immediate Referral [address] [place] [address])(S cott [facility] FAMRES Tm Blue) [address] [place], [place] [address]B [facility]Sco tt [facility] FAMRES Tm Blue) OUTPATIENT [id number] annual SKY Brown 11/21 Released w/o Limitations [address] [place], [place] [address]B [facility]S cott [facility] FAMRES Tm Blue) [address] [place] [address]B [facility] Blue) TELE CONSULT [id number] Notes Entered by: WAGNER GA 11 Feb 2019 0909 ------- ------- ------- ------- -- Med Renewal / Michael / - sgj SHELDON GARZA Michael 02/11 Other Not Elsewhere Classified [address] [place] [address] Alex [facility]S [facility] Blue) [address] [place] [address] Alex Segundo [facility]Sco tt [facility]) TELE CONSULT [id number] 2 Notes Entered by: ED SOLARES 19 May 2019 1041 ------- ------- ------- ------- -- Med Renewal Request / Michael [phone] - RONEN Lazar 05/18 Medication Refill Forwarded [address] [place] [address] Alex [facility]S [facility] Blue) [address] [place] [address] Alex Segundo [facility]Sco tt [facility]) TELE CONSULT [id number] Notes Entered by: VIRGIL STONER 03 Sep 2019 1006 ------- ------- ------- ------- -- STAT Referra l Renewal Request (appt 06 September)/Kiana bates/Naye [phone] RONEN CORNEJO 09/02 Released to Self [facility] [address] [place] [address] Alex EP[facility]IT [facility]S [facility] [employer]) [address] [place] [address] Alex Segundo [facility]Sco tt [facility]) OUTPATIENT [id number] 2 In-Pers on - Lump middle of back increas ing ISAIAH LOPEZ 10/27 Released w/o Limitations [address] [place] [address] Alex [facility]S [facility] Blue) [address] [place] [address] Alex [facility]Sco tt [facility] [employer]) OUTPATIENT [id number] 7 MINOR/L IPOMA/S KIN TAG REMOVAL ANAT MUSE V 11/01 Released w/o Limitations [address] [place] [address] Alex [facility]S [facility] Blue) [address] [place] [address] Alex [facility])(Sco tt [facility] [employer]UP Tm Blue) TELE CONSULT [id number] Notes Entered by: ANAT NAVARRETE Radha 11 Nov 2019 1423 ------- ------- ------- ------- -- Patholo gy results ANAT MUSE Radha 11/10 Released to Self Care [address] [place] [address] Alex [facility]S [facility] Tm Blue) [address] [place] [address] Alex Sgeundo [facility])(Sco tt [facility] FAMFederspiel [employer] Tm Blue) OUTPATIENT [id number] Notes Entered by: SB SOLANO 12 Nov 2019 0801 ------- ------- ------- ------- -- Sitches removal on back RHYS MORGAN 11/11 Released w/o Limitations [address] [place] [address] Alex [facility] Tm Blue) [address] [place] [address] Alex [facility])(Sco tt [facility] Tm Blue) TELE CONSULT [id number] Notes Entered by: CRISTINE ATKINS 22 Dec 2019 1225 ------- ------- ------- ------- -- RX refill/ Michael/ : [phone] RONEN CORNEJO 12/21 Referred for Appointment [address] [place] [address] Alex [facility] [employer] Tm Blue) [address] [place] [address] Alex [facility])(Sco tt [facility] FAMFederspiel [employer] Tm Blue) OUTPATIENT [id number] 6 in person appt/an india lanier l and med refill ELLYN PALAFOX 12/31 Released w/o Limitations [address] [place] [address] Alex [facility] FAMRES Tm Blue) [address] [place] [address] Alex Segundo [facility]Sco tt [facility] FAMFederspiel Corp Tm Blue) TELE CONSULT [id number] 1 Notes Entered by: FINA GERMAN 18 May 2020 0839 ------- ------- ------- ------- -- med refill/ michael/ [phone] INOCENCIO Menon 05/18 Medication Refill Forwarded [address] [place] [address])(S [facility] Blue) [address] [place] [address])(Sco tt [facility] Blue) TELE CONSULT [id number] Notes Entered by: CRISTIAN ABBOTT 05 Sep 2020 0944 ------- ------- ------- ------- -- Referra l Renewal -UROLOG Dedra/CJ Graves/ SHELDON GARZA 09/05 Other Not Elsewhere Classified [address] [place] [address])([facility] Blue) [address] [place] [address])(Sco tt [facility]) TELE CONSULT [id number] 2 Notes Entered by: SHIRLEY FOX 26 Oct 2020 0837 ------- ------- ------- ------- -- Referra l renewal - Oct appt - Taylor feng - - [facility] ISADORA GAYLE 10/26 Released to Self Care [address] [place] [address])([facility] Tm Blue) [address] [place] [address] Alex [facility])(Sco tt [facility] Blue) TELE CONSULT [id number] 7 Notes Entered by: NAVDEEP CAMPOS 13 Dec 2020 1019 ------- ------- ------- ------- -- Med Refill/ Taylor feng/[phone] ISADORA GAYLE 12/13 Referred for Appointment [address] [place] [address])([facility] Blue) [address] [place] [address])(Sco tt [facility] Blue) OUTPATIENT [id number] 6 annual well visit. med refill. ANAT MUSE V 12/23 Released w/o Limitations [address] [place] [address] Group Alex [facility]IT ([facility] FAMRES Tm Blue) [address] [place] [address] Alex [facility])(Sco tt [facility] FAMRES Tm Blue) TELE CONSULT [id number] 2 Notes Entered by: FINA GERMAN 28 Feb 2021 1412 ------- ------- ------- ------- -- testing request /spendl ove/[phone] DOUG Gee 02/28 Released to Self Care [address] [place] [address] Alex [facility])(S [facility] Tm Blue) [address] [place] [address] Alex [facility])(Sco tt [facility] FAMRES Tm Blue) TELE CONSULT [id number] 8 Notes Entered by: FINA GERMAN 16 Mar 2021 0959 ------- ------- ------- ------- -- med refill/ spendlo ve/[phone] TORIE Brush 03/16 Released to Self Care [address] [place] [address] Alex [facility])(S [facility] Tm Blue) [address] [place] [address] Alex [facility])(Sco tt [facility] FAMRES Tm Blue) TELE CONSULT [id number] Notes Entered by: ED SOLARES 17 May 2021 1224 ------- ------- ------- ------- -- Med Renewal Request / Spendlo ve/ NEYDA HUI 05/17 Medication Refill Forwarded [address] [place] [address] Alex [facility])(S cott [facility] FAMRES Tm Blue) [address] [place] [address] Alex [facility])(Sco tt [facility] Fam Res Tm Green) TELE CONSULT [id number] 1 Notes Entered by: GAURAV SALMERON 21 Nov 2021 1019 ------- ------- ------- ------- -- Phone Call to front end alignment specialist for a referra l request . VAUGHANINOCENCIO RICHTER NICOLA 11/21 Other Not Elsewhere Classified [address] [place] [address] Alex [facility])(S cott [facility] Fam Res Tm Green) [address] [place] [address])(Sco tt [facility] FAMRES Tm Blue) TELE CONSULT [id number] Notes Entered by: Rao MAI 02 Jan 2022 1426 ------- ------- ------- ------- -- Network results Cardiol ogy 022 PORTIA ARIAS 01/[address] [place] [address])(S cott [facility] FAMRES Tm Blue) [address] [place] [address])(Sco tt [facility] FAMRES Tm Blue) TELE CONSULT [id number] Notes Entered by: DARRIN BARON 16 May 2022 0813 ------- ------- ------- ------- -- Med Renewal Request / JUAN / NADER SAUCEDA 05/16 Other Not Elsewhere Classified [address] [place] [address])(S cott [facility] FAMRES Tm Blue) [address] [place] [address] Alex [facility])(Sco tt [facility] FAMRES Tm Blue) OUTPATIENT [id number] 8 F2F- MED REFILLS SATHISH JHA 05/23 Released w/o Limitations [address] [place] [address] Alex [facility])(S cott [facility] FAMRES Tm Blue) [address] [place] [address] Alex [facility])(Sco tt [facility] FAMRES Tm Blue) TELE CONSULT [id number] 2 Notes Entered by: YESY LEARY 24 May 2022 1329 ------- ------- ------- ------- -- RECORD TO REVIEW ALINE NEWMAN 05/24 Released to [facility] [address] [place], [place] [address]B [facility]S cott [facility] FAMRES Tm Blue) [address] [place] [address])(Sco tt [facility] FAMRES Tm Blue) TELE CONSULT [id number] 1 Notes Entered by: Fausto JHA 2022 0814 ------- ------- ------- ------- -- lab results SATHISH JHA 05/30 Released to Self Care [employer] Alex [facility]TIT [place]S cott [facility] Tm Blue) [facility] Outpatient Encounter [id number] 10/23 [facility] N 0055A-375 th [facility] flory Outpatient [id number] SANAM OBCO 07/06 Discharge Disposition: Home or Self Care 0055A-3 75th [facility]- Alex 6130C-Af- C-375Th [facility] flory Between Visit [id number] 07/06 Discharge Disposition: Home or Self Care 6130C-A f-C-375 Th Med[facility]- Alex 6130C-Af- C-375Th Medgr[facility]-Sc flory Between Visit [id number] 07/06 Discharge Disposition: Home or Self Care 6130C-A f-C-375 Th Med[facility]- Alex 6130C-Af- C-375Th [facility]-Sc flory Preclinic [id number] SANAM RBOBCO 08/11 6130C-A f-C-375 Th Med[facility]- Alex 0055C-375 th [facility] Preclinic [id number] PAULA THOMASON 08/11 0055C-3 75th [facility]- Alex Procedures Combined list of: 1) Procedures from Department of Veterans Affairs facilities going back up to thelast 18 months, not all VA non-surgical procedures are included; 2) All procedures from the Department of Defense facilities. Procedure Procedure Type Code Date Perfomer Comments Sourc e No data available for this section Ambulato ry Pharmacy Rapid Antigen Identification Streptococcus Group A Beta Hemolytic Rapid Antigen Identification Streptococcus Group A Beta Hemolytic [id number] 2016 JEMAL MEJIA Non-Physician Phone Call To Patient/Provider Brief (5-10min) Non-Physician Phone Call To Patient/Provider Brief (5-10min) 12024 2016 EDEN CAMEJO Non-Physician Phone Call To Patient/Provider Brief (5-10min) Non-Physician Phone Call To Patient/Provider Brief (5-10min) [id number] 2016 EDEN CAMEJO Non-Physician Phone Call To Patient/Provider Brief (5-10min) Non-Physician Phone Call To Patient/Provider Brief (5-10min) [id number] 2015 EDEN CAMEJO Non-Physician Phone Call To Patient/Provider Brief (5-10min) Non-Physician Phone Call To Patient/Provider Brief (5-10min) [id number] 2015 DOUG GO [facility] Non-Physician Phone Call To Patient/Provider Brief (5-10min) Non-Physician Phone Call To Patient/Provider Brief (5-10min) [id number] 2015 EDEN CAMEJO Non-Physician Phone Call To Patient/Provider Brief (5-10min) Non-Physician Phone Call To Patient/Provider Brief (5-10min) [id number] 2014 IRAJ MACKEY [facility] Non-Physician Phone Call To Patient/Provider Brief (5-10min) Non-Physician Phone Call To Patient/Provider Brief (5-10min) [id number] 2014 EDEN CAMEJO Non-Physician Phone Call To Patient/Provider Brief (5-10min) Non-Physician Phone Call To Patient/Provider Brief (5-10min) [id number] 2012 JENA GONSALEZ [facility] Immunization Administration One Vaccine Immunization Administration One Vaccine 72750 2012 JACUQELINE JOHNSON [facility] Influenza Split Vir Vac Age 6-35 Month IM Preservative Free 2012 JACQUELINE JOHNSON [facility] Chemical Cauterization Of Granulation Ti ue 2011 ZENA GORDON [facility] Shaving Of Lesion Trunk .6 to 1cm Shaving Of Lesion Trunk .6 to 1cm 82019 2011 ZENA GORDON [facility] Biopsy Skin Biopsy Skin 35478 2011 ZENA GORDON [facility] Immunization Administration One Vaccine Immunization Administration One Vaccine 80573 2011 JACQUELINE JOHNSON [facility] Zoster Vaccine, Live Zoster Vaccine, Live 47278 2011 JACQUELINE JOHNSON [facility] Immunization Administration One Vaccine Immunization Administration One Vaccine 02683 2011 ANTHONY MAJOR [facility] Influenza Split Virus Vaccine Age 3+ Years Intramuscular 2011 ANTHONY MAJOR [facility] Non-Physician Phone Call To Patient/Provider Brief (5-10min) Non-Physician Phone Call To Patient/Provider Brief (5-10min) [id number] 2010 NEAL CARY [facility] Non-Physician Phone Call To Patient/Provider Brief (5-10min) Non-Physician Phone Call To Patient/Provider Brief (5-10min) 20067 2010 YVONNE KNAPP [facility] Influenza Split Virus Vacc Age 3+ Years IM Preservative Free 2009 MARTIN ADAMSON [facility] Immunization Administration One Vaccine Immunization Administration One Vaccine 84254 2009 MARTIN ADAMSON [facility] Non-Physician Phone Call To Patient/Provider Brief (5-10min) Non-Physician Phone Call To Patient/Provider Brief (5-10min) 60231 2009 NEAL CARY [facility] Non-Physician Phone Call To Patient/Provider Brief (5-10min) Non-Physician Phone Call To Patient/Provider Brief (5-10min) 64342 2009 DOUG GO [facility] Non-Physician Phone Call To Patient/Provider Brief (5-10min) Non-Physician Phone Call To Patient/Provider Brief (5-10min) 84031 2009 YVONNE KNAPP [facility] Immunization Administration One Vaccine Immunization Administration One Vaccine 45990 2008 MATT BURNS [facility] Influenza Split Virus Vaccine Age 3+ Years Intramuscular 2008 MATT BURNS [facility] Immunization Administration Each Additional Vaccine 2008 MATT BURNS Tdap Vaccine Seven Years Of Age And Above Tdap Vaccine Seven Years Of Age And Above 10085 2008 MATT BURNS [facility] Ophthalmological New Patient Start Comprehensive Care Ophthalmological New Patient Start Comprehensive Care 57713 2006 YOAV BARRIOS [facility] Determination Of Refractive State Determination Of Refractive State 56975 2006 YOAV BARRIOS [employer] Fitting Bifocals (Not For Aphakia) [employer] Fitting Bifocals (Not For Aphakia) 66172 2006 YOAV BARRIOS [facility] Electrocardiogram Electrocardiogram 68159 05/10 ZACK MUKHERJEE Influenza Split Virus Vacc Age 3+ Years IM Preservative Free 2004 WILL FELDMAN Biopsy Nail Biopsy Nail 19552 2004 WILL FELDMAN Echocardiogram (2-D) 2004 ILEANA FLEMING Echo (Doppler) Color Flow Velocity Mapping Echo (Doppler) Color Flow Velocity Mapping 79554 2004 ILEANA FLEMING Echo (Doppler) Echo (Doppler) 55995 2004 ILEANA FLEMING Non-Physician Phone Call To Pt/Provider Intermed (11-20 min) Non-Physician Phone Call To Pt/Provider Intermed (11-20 min) [id number] RONEN CORNEJO Non-Physician Phone Call To Patient/Provider Brief (5-10min) Non-Physician Phone Call To Patient/Provider Brief (5-10min) [id number] RONEN CORNEJO Skin Tag Removal Up To 15 Lesions Skin Tag Removal Up To 15 Lesions 12318 ANAT MUSE Postoperative Visit, Without Charge Postoperative Visit, Without Charge 23847 RHYS MORGAN TELE ASSESS & MGT SRV PROV QUAL NONPHYS HLTH CARE PRO TO EST PAT,PARENT,GUARD NOT ORIG REL ASSESS & MGT SRV PROV W/IN PREV 7 DAYS NOR LEAD ASSESS & MGT SRV/PX W/IN NXT 24 HR/SOON APT;5-10 MIN MED DIS 2020 [facility] TELE ASSESS & MGT SRV PROV QUAL NONPHYS HLTH CARE PRO TO EST PAT,PARENT,GUARD NOT ORIG REL ASSESS & MGT SRV PROV W/IN PREV 7 DAYS NOR LEAD ASSESS & MGT SRV/PX W/IN NXT 24H/SOON APT; 11-20 MIN MED DIS 2019 [facility] POSTOPERATIVE FOLLOW-UP VISIT, NORMALLY INCLUDED IN THE SURGICAL PACKAGE, INDICATE THAT EVALUATION & MANAGEMENT SERVICE WAS PERFORMED DURING A POSTOPERATIVE PERIOD REASON RELATED ORIGINAL PROCEDURE 2019 [facility] INCISIONAL BIOPSY OF SKIN (EG, WEDGE) (INCLUDING [...] 1 VACCINE (SINGLE OR COMBINATION VACCINE/TOXOID) 2012 [facility] CHEMICAL CAUTERIZATION OF GRANULATION TISSUE (IE, PROUD FLESH) 2011 [facility] ZOSTER (SHINGLES) VACCINE (HZV), LIVE, FOR SUBCUTANEOUS [...] YEARS OR OLDER, FOR INTRAMUSCULAR USE 2008 DoD FITTING OF SPECTACLES, EXCEPT FOR APHAKIA; BIFOCAL 2006 [facility] ELECTROCARDIOGRAM, ROUTINE ECG WITH AT LEAST 12 LEADS; WITH INTERPRETATION AND REPORT 2006 [facility] INFLUENZA VIRUS VACCINE, TRIVALENT (IIV3), SPLIT VIRUS, PRESERVATIVE FREE, 0.5 ML DOSAGE, FOR INTRAMUSCULAR USE 2004 [facility] DOPPLER ECHOCARDIOGRAPHY, PULSED WAVE AND/OR CONTINUOUS WAVE WITH SPECTRAL DISPLAY (LIST SEPARATELY IN ADDITION TO CODES FOR ECHOCARDIOGRAPHIC IMAGING); COMPLETE 2004 [facility] SURGICAL TRAYS 2002 DoD Social History Combined list of available smoking, tobacco, and other social history from Department of Defense and Veterans Affairs facilities. Social History Type Response Date Comment [facility] e Sex Representation Male (finding) 05/16/2022 Un [...] [facility] 2014 and reported [...] understanding agreeable to plan - Follow-up with [facility] Ordered: omeprazole(omeprazole 40 mg oral delayed release capsule), 1 cap(s), Oral, Daily, 30 to 60 minutes before a meal, # 90 cap(s), 3 total refill(s), Maintenance, Pharmacy: [facility] #[id number] [External Rx] Referral Request 2.0 - [facility] HTN - Hypertension Chronic, uncontrolled per JNC-8 [...] care for any urgent/emergent concerns or call and leave message with the clinic for any other concerns. Patient can also access [employer] at [email or web address] to leave message with PCM Team. - Please note that this dictation was completed with [employer] dictation microphone and software and unintentional errors may be present. Efforts were made to check spelling and grammatical errors. If there are questions about the note please do not hesitate to ask. Capt Sanam Martinez MD Resident, PGY-3 [id number] , [facility] Family and Community Medicine Program [place], [place] Addendum by LEVI DONOHUE MD on May 14, 2024 16:47:36 SUPERVISOR GRINDING On the day of encounter, I was available for discussion with the resident physician. Case was discussed with me in the Teach Room. I agree with the assessment and plan of care as documented above with any exceptions/additions noted below if necessary. All labs/rads/consults to be followed by the ordering provider. DO Sirena Gonzalez [employer], Family Medicine Physician Future Appointments Appointment Date: 08/11/2024 10:00:00 AM Scheduled Provider: SANAM MARTINEZ MD Location: [address] [place] [address] Appointment Type: PC FTR Appointment Date: 08/11/2024 01:10:00 PM Scheduled Provider: PAULA LONDON Location: [id number] Appointment Type: IMMUN FTR 08/06/[address] [place], [place] [id number] Functional Status Combined list of recent functional and cognitive assessments recorded at Department of Defense and Veterans Affairs (VA).VA Functional [place] Measurement (FIM) Scale: 1 = Total Assistance (Subject = 0% +), 2 = Maximal Assistance (Subject = 25% +), 3 = Moderate Assistance (Subject = 50% +), 4 = Minimal Assistance (Subject = 75% +), 5 = Supervision, 6 = Modified [place] (Device), 7 = Complete [place] (Timely, Safely). Assessment Date/Time Source Assessment Type Assessment Skill Assessment Score Assessment Details No data available for this section
--- OUTSIDE RECORDS SUMMARY | 2024-08-06 02:18 | XMS_ITS | Encounter Summary ---
Author Organization [facility] Address [address] [place] [address] Care Team Providers Care Dye Lab Technician Name Role Phone Unavailable Primary Care Provider Unavailabl e Encounter Details Date Type Department Care Team (Late st Contact Info) Description 10/01/2023 Lab Requisition [facility] - DermPath Lab [address] [place] [phone] Regino Mcneal MD [facility] [address] [place] [phone] Neoplasm of uncertain behavior of skin Social History Tobacco Use Types Packs/Day Years Used Date Smoking Tobacco: Never Assessed Sex and Gender Information Value Date Recorded Sex Assigned at Not on file Legal Sex Male 3:36 PM CDT Gender Identity Not on file Sexual Orientation Not on file documented as of this encounter Plan of Treatment Not on file documented as of this encounter Procedures Procedure Name Priority Date/Time Associated Diagnosis Comments DERMATOPATHOLOGY Routine 10/01/2023 3:33 AM CDT Neoplasm of uncertain behavior of skin documented in this encounter Results * DERMATOPATHOLOGY (10/01/2023 3:33 AM CDT) Case Report Dermatopathology Report Case: [id number] Authorizing Provider: Regino Mcneal MD Collected: 10/01/2023 03:33 AM Ordering Location: [facility] - Received: 10/02/2023 12:55 PM DermPath Lab Pathologist: Manuela Dawkins MD Specimen: Skin, left forearm 1:57 PM CDT DERMATOPATHOLOGY LABORATORY Final Diagnosis Specimen A. SKIN, left forearm: SOLAR LENTIGO (L81.4) 1:57 PM CDT DERMATOPATHOLOGY LABORATORY at 1357 CDT Clinical History Atypical Nevus 1:57 PM CDT DERMATOPATHOLOGY LABORATORY Gross Description Specimen A: Received is one formalin filled container labeled with the patient's name and designated left forearm. The specimen consists of a shave biopsy measuring 5x3x1 mm. Jar 0. 1:57 PM CDT DERMATOPATHOLOGY LABORATORY Microscopic Description Specimen A. SKIN, left forearm: There is orthokeratosis. There is a slight increase in epidermal thickness with lentiginous buds of hyperpigmented keratinocytes. The number of melanocytes is only mildly increased. In the dermis, there is basophilic degeneration of elastic fibers. 1:57 PM CDT DERMATOPATHOLOGY LABORATORY Disclaimer An external and internal positive and negative controls are appropriate for the histochemical, immunohistochemical and immunofluorescence stain(s) in this case (if any), except where stated explicitly. The performance characteristics of the stain(s) cited in this report were developed and its performance characteristic determined by the Dermatopathology Laboratory at [facility], directed by Dr. Rai Real. These tests need not be, and therefore are not, approved by the [place] Food and Drug Administration. The tests are used for clinical purposes. Billing Codes Specimen Charges Stain Charges 49165 1 1:57 PM CDT DERMATOPATHOLOGY LABORATORY Embedded Images 1:57 PM CDT DERMATOPATHOLOGY LABORATORY Pathology/Cytolo gy TISSUE SPECIMEN FROM SKIN / Unknown 10/01/2023 3:33 AM CDT 10/02/2023 12:55 PM CDT us Regino Mcneal MD LAB - PATHOLOGY/CYTOLOGY CEM TORRES Final Result DERMATOPATHOLOGY LABORATORY [facility] - Department of Dermatology [address], [address] [phone] documented in this encounter Visit Diagnoses Diagnosis Neoplasm of uncertain behavior of skin documented in this encounter
--- OUTSIDE RECORDS SUMMARY | 2024-08-06 02:18 | XMS_ITS | Clinical Summary ---
Author Organization [facility] [employer] Address [address] [place] [address] Care Team Providers Care Duco Polisher Name Role Phone Unavailable Primary Care Provider Unavailabl e Source Comments [facility] [employer],non-owned Affiliates and Associated Physician Practices is amultiple site organization consisting of ambulatory clinics and hospital sitesin [place], [place], [place] and [place]. This disclosure is being madepursuant to the Care Everywhere program and may not contain all information available regarding this patient. Last updated 17.[facility] [employer] Social History Tobacco Use Types Packs/Day Years Used Date Smoking Tobacco: Never Assessed Sex and Gender Information Value Date Recorded Sex Assigned at Not on file Legal Sex Male 3:36 PM CDT Gender Identity Not on file Sexual Orientation Not on file Plan of Treatment Health Maintenance Due Date Last Done Comments COLOGUARD (AGES 45-75) - COL ON CA SCREENING 1958 COLON MONITORING 1958 COLONOSCOPY - COLON CA SCREENING 1958 CT COLONOGRAPHY - COLON CA SCREENING 1958 Colorectal Cancer Screening 1958 FIT - COLON CA SCREENING 1958 FLEX SIG - COLON CA SCREENING 1958 LIPID TESTING 1958 MEDICARE AWV 12 MONTHS 1958 HEPATITIS C SCREENING 05/25/1976 DTAP/TDAP/TD VACCINES (1 - Tdap) 1977 PNEUMOCOCCAL VACCINE 50+ (1 of 1 - PCV) 2008 ZOSTER VACCINE (1 of 2) 2008 COVID-19 VACCINE ( - 2023-2 5 season) 2023 DEPRESSION SCREENING 03/11/2024 INFLUENZA VACCINE (Season Ended) 2024 Respiratory Syncytial Virus (RSV) Vaccine Pt: or over 60 yrs (1 - 1-dose 75+ series) 2033 HEPATITIS B VACCINE Aged Out No longe r eligible based on patient's age to complete this topic HIB VACCINE Aged Out No longer eligi ble based on patient's age to complete this topic HPV VACCINE Aged Out No longer eligi ble based on patient's age to complete this topic MENINGOCOCCAL (Group B) VACC INE SHARED DECISION-MAKING Aged Out No longer eligibl e based on patient's age to complete this topic MENINGOCOCCAL GROUPS A/C/Y/W VACCINE Aged Out No longer eligible b ased on patient's age to complete this topic Insurance MEDICARE [facility] [employer] Address: [facility] [address] [place] [address]
--- OUTSIDE RECORDS SUMMARY | 2024-08-06 02:18 | XMS_ITS | Data Portability ---
Author Organization [place] - [facility] OFFICE Address [facility] [place] [address] Care Team Providers Care Economics Consultant Name Role Phone NORA PETTIT, [facility] Primary Care Provider [phone] Assessment No assessment recorded. Plan of Treatment Reminders Order Date Submit Date Provider Last Modified By Organization Details Last Modified Time Details Appointments ECHO 2024 01:15P M Zaynab Schedule Not available Not available Not available ESTABLI SHED PATIENT DETAILE D 2025 02:00P M Pop Edwards i, MD Not available Not available Not available Lab None recorde d. Referral None recorde d. Procedures None recorde d. Surgeries None recorde d. Imaging None recorde d. Medication Orders lisinop ril 20 mg tablet 2024 025 [facility], [address] [place] [address], [id number], 07/28/2024 15:25:52 rosuvas tatin 10 mg tablet 2024 025 [facility], [address] [place] [address], [id number], 07/28/2024 15:25:51 rosuvas tatin 10 mg tablet 2022 023 [facility], [address] [place] [address], [id number], 05/29/2022 15:15:20 Patient TargetsNo targets recorded. Patient Instructions Encounter Date Encounter Id Patient Instructions Last Modified By Organization Details Last Modified Time 12/15/2022 [id number] Exercise advised Low cholesterol diet advised Low sodium diet advised. [email or web address] Not available 12/15/2022 14:17:34 08/06/2023 [id number] Exercise advised Low cholesterol diet advised Low sodium diet advised. [email or web address] Not available 08/06/2023 16:14:47 07/28/2024 [id number] Exercise advised Low cholesterol diet advised Low sodium diet advised. [email or web address] Not available 07/28/2024 15:17:55 Reason for Referral None Reported. Results Created Date Observation Date Name Description Value Unit Range Abnormal Flag Note LastModifiedBy Organization Detail LastModifiedTime 12/01/1911/28/2021 elect rocar diogr am No observ ation record ed. [email or web address] Not Available 2021 14:58:39 12/27/19 22 12/18/2021 exerc ise chaces s echoc ardio gram No observ ation record ed. [email or web address] Not Available 2021 13:18:41 05/31/19 23 05/29/2022 elect rocar diogr am No observ ation record ed. [email or web address] Not Available 2022 14:12:42 12/26/19 23 12/15/2022 elect rocar diogr am No observ ation record ed. [email or web address] Not Available 2022 15:11:48 08/08/19 24 08/06/2023 elect rocar diogr am No observ ation record ed. [email or web address] Not Available 12:18:22 07/30/19 25 07/28/2024 [facility] rocar diogr am No observ ation record ed. [email or web address] Not Available 2024 13:00:42 Result Notes Documentation Provider Name and Address Organization Details Recorded Time Lipid Panel, Blood : 07/17/23:Na 143,K 4.1,CL 104,CO2 24,GLU 102,BUN 22,Cr 1.07,AST 15,ALT 19,CK 79. 07/17/23:TC 132,TG 43,HDL 56,LDL 66. Anahi Barros [facility], [place] - [facility] 07/18/2023 13:30:57 Problems Name Problem SNOMED Code Status Onset Date Resolution Date Notes Provider Name and Address Organization Details Recorded Time Heart murmur 62938056 Active 2015 Christianmili Barros [facility] 6 16:37:10 Hiatal hernia 64149192 Active 2015 Donna Trevizo [facility] 6 04:26:28 Gastroesophage al reflux disease 240239360 Active 2015 [facility] 6 16:36:56 Benign prostatic hyperplasia 260559706 Active 2015 Donna Trevizo [facility] 6 04:26:43 Essential hypertension 65238772 Active 2015 [facility] 6 16:37:03 Hyperlipidemia 31041013 [facility] 15:27:22 Osteoarthritis 798751486 Active 2017 [facility] 15:14:33 Problem Notes None recorded. Procedures Surgical History Date Name Laterality Status Provider Name and Address Organization Details Recorded Time Removal of sperm duct(s) completed [facility] 10/16/2015 16:37:39 Fragmenting of kidney stone completed [facility] 10/16/2015 16:37:52 Imaging Results None recorded. Procedure Notes None recorded. Medical Equipment None Reported. Allergies No known drug allergies Medications Name Sig Start Date Stop Date Status Note LastModified by Organization Details LastModified Time cyclobenza josephine 10 mg tablet active PRN Not Available Not Available No t Available amoxicilli n 500 mg capsule TAKE 1 CAPSULE BY MOUTH THREE TIMES DAILY UNTIL ALL TAKEN 07/28 completed Not Available Not Available Not Available pravastati n 40 mg tablet Take 1 tablet every day by oral route as directed for 1 day. 11/28 completed Not Available Not Available Not Available benzonatat e 200 mg capsule 11/28 completed Not Available Not Available Not Available hydrocodon e 5 mg-acetami nophen 325 mg tablet 11/27 completed pt. not taking Not Available Not Available Not Available lisinopril 20 mg tablet Take 1 tablet every day by oral route as directed . 2024 active Not Available Not Available Not Avai lable Viagra 50 mg tablet Take 1 tablet [...] Not Available rosuvastat in 10 mg tablet Take 1 tablet every day by oral route. 2024 active Not Available Not Available Not Avai lable Everetts Sinus Rinse with packet 11/29 completed Not Available Not Available Not Available chlorhexid ine gluconate 0.12 % mouthwash SWISH 15ML FOR 30 SECONDS IN MOUTH AND SPIT TWICE DAILY. USE FOR ONLY 1 WEEK active Not Available Not Available No t Available Mucinex D 60 mg-600 mg tablet,ext ended release 11/28 completed as needed Not Available Not Available Not Available Suprep Bowel Prep Kit 17.5 gram-3.13 gram-1.6 gram oral solution 11/28 completed Not Available Not Available Not Available Fluzone Quad 7162-5549 60 mcg (15 mcg x 4)/0.5 mL IM suspension 11/29 completed Not Available Not Available Not Available Fluzone Quad 3026-7297 60 mcg (15 mcg x 4)/0.5 mL [...] Available Not Available Vitals Date Recorded Body height Body mass index (BMI) Body weight Heart rate Respiratory rate Oxygen saturation Oxygen saturation in Arterial blood by Pulse oximetry Systolic blood pressure Diastolic blood pressure Provider Name and Address Organization Details Last Updated DateTime 3 172.72 cm 27.4 kg/m2 25402.6 3 g 69 /min 16 /min 97 % 97 % 124 mm[Hg] 82 mm[Hg] Germán Jain [facility] 3 14:59:59 Date Recorded Body height Body mass index (BMI) Body weight Heart rate Oxygen saturation Oxygen saturation in Arterial blood by Pulse oximetry Systolic blood pressure Diastolic blood pressure Provider Name and Address Organization Details Last Updated DateTime 5 172.72 cm 26.9 kg/m2 21123.8 5 g 54 /min 97 % 97 % 125 mm[Hg] 79 mm[Hg] Estephanie Ochoause [facility] 5 15:06:44 Date Recorded Body height Body mass index (BMI) Body weight Heart rate Oxygen saturation Oxygen saturation in Arterial blood by Pulse oximetry Systolic blood pressure Diastolic blood pressure Provider Name and Address Organization Details Last Updated DateTime 4 172.72 cm 27 kg/m2 68257.7 2 g 70 /min 98 % 98 % 112 mm[Hg] 68 mm[Hg] Cori Fall [facility] 4 15:56:28 Date Recorded Body height Body mass index (BMI) Body weight Heart rate Respiratory rate Oxygen saturation Oxygen saturation in Arterial blood by Pulse oximetry Systolic blood pressure Diastolic blood pressure Provider Name and Address Organization Details Last Updated DateTime 2 172.72 cm 25.8 kg/m2 17567.7 g 77 /min 16 /min 98 % 98 % 112 mm[Hg] 60 mm[Hg] Germán Jain [facility] 2 17:16:43 Date Recorded Body height Body mass index (BMI) Body weight Heart rate Respiratory rate Oxygen saturation Oxygen saturation in Arterial blood by Pulse oximetry Systolic blood pressure Diastolic blood pressure Provider Name and Address Organization Details Last Updated DateTime 3 172.72 cm 26.5 kg/m2 17334.0 7 g 71 /min 16 /min 98 % 98 % 126 mm[Hg] 74 mm[Hg] Germán Jain [facility] 3 14:03:06 Social History Question Answer Notes LastModified by [employer] Details LastModified Time Tobacco Smoking Status Never Smoker Not Available [facility]/12[facility] 03:30:18 What Was The Date Of Your Most Recent Tobacco Screening? 11/29/2016 [id number] Information not available 01/12/2020 How Much Tobacco Do You Smoke? No [id number] Information not available 01/12/2020 How Many Years Have You Smoked Tobacco? 0 [id number] Information not available 01/12/2020 Sex: Unknown Functional Status Question Answer Note LastModified by [employer] Details LastModified Time Do you or have you ever used smokeless tobacco? Never used smokeless tobacco [id number] Information not available 01/12/2020 Do you or have you ever used e-cigarettes or vape? Never used electronic cigarettes [id number] Information not available 01/12/2020 Mental Status None [...] Code Diagnosis Note 3923 Trenton Chávez MD [place] OFFICE [facility] [place] [address] 11/02/2015 14:17:05 11/03/2015 11:00:56 Essential hypertension 08265397 I10 Patient's blood pressure is well-contr olled on present medical therapy. Patient is tolerating , without difficulty , the current medication s. I have not made changes to the current regimen. Patient is advised to maintain a blood pressure diary. Cont low Na diet. Heart murmur 83028670 R0 1.1 pt had ECHO last year which showed trace MR and trace TR. Will repeat ECHO in one year. He does not need dental prophylaxi s. Hyperlipidemia 21545252 E78.5 Patient's hyperlipid emia is well-contr olled on present medical therapy. Patient is tolerating , without difficulty , the current medication s. I have not made changes to the current regimen. Cont low cholestero l diet. [id number] Pop Farley MD [place] OFFICE [facility] [place] [address] 11/29/2016 14:51:44 11/30/2016 09:51:37 Essential hypertension 80698004 I10 Patient's blood pressure is well-contr olled on present medical therapy. Patient is tolerating , without difficulty , the current medication s. I have not made changes to the current regimen. Patient is advised to maintain a blood pressure diary. Cont low Na diet. Heart murmur 89566386 R0 1.1 His recent ECHO is similar as last year which showed trace MR and mild TR with borderline pulmonary pressure (PASP 35 mmHg).. Normal LV systolic function (LVEF 55-60%). Will repeat ECHO in two years. Hyperlipidemia 21841965 E78.5 Patient's hyperlipid emia is well-contr olled on present medical therapy. Patient is tolerating , without difficulty , the current medication s. I have not made changes to the current regimen. Cont low cholestero l diet.Will repeat lipids 80415 Pop Farley MD [place] [facility] [address] [place] [address] 11/28/2017 14:44:07 11/28/2017 15:37:16 Essential hypertension 74758764 I10 Patient's blood pressure is well-contr olled on present medical therapy. Patient is tolerating , without difficulty , the current medication s. I have not made changes to the current regimen. Patient is advised to maintain a blood pressure diary. Cont low Na diet. Heart murmur 76206373 R0 1.1 His recent ECHO is similar as last year which showed trace MR and mild TR with borderline pulmonary pressure (PASP 35 mmHg).. Normal LV systolic function (LVEF 55-60%). Will repeat ECHO in two years. Hyperlipidemia 63132275 E78.5 Patient's hyperlipid emia is well-contr olled on present medical therapy. Patient is tolerating , without difficulty , the current medication s. I have not made changes to the current regimen. Cont low cholestero l diet.Will repeat lipids 07969 Trenton Chávez MD [place] [facility] [address] [place] [address] 11/27/2018 14:48:41 11/27/2018 15:56:52 Essential hypertension 46649586 I10 Patient's blood pressure is well-contr olled on present medical therapy. Patient is tolerating , without difficulty , the current medication s. I have not made changes to the current regimen. Patient is advised to maintain a blood pressure diary. Cont low Na diet. Heart murmur 69676506 R0 1.1 His last ECHO is similar as last year which showed trace MR and mild TR with borderline pulmonary pressure (PASP 35 mmHg).. Normal LV systolic function (LVEF 55-60%). Will repeat ECHO in two years. Hyperlipidemia 92909123 E78.5 Patient's hyperlipid emia is well-contr olled on present medical therapy. Patient is tolerating , without difficulty , the current medication s. I have not made changes to the current regimen. Cont low cholestero l diet. 87942 Jamila Costa MD [place] [facility] [address] [place] [address] 11/02/2019 11:58:25 11/02/2019 12:33:21 Essential hypertension 37039497 I10 Patient's blood pressure is well-contr olled on present medical therapy. Patient is tolerating , without difficulty , the current medication s. I have not made changes to the current regimen. Patient is advised to maintain a blood pressure diary. Cont low Na diet. Heart murmur 22112807 R0 1.1 His last ECHO is similar as last year which showed trace MR and mild TR with borderline pulmonary pressure (PASP 35 mmHg).. Normal LV systolic function (LVEF 55-60%).re peat echo before next visit Hyperlipidemia 35623229 E78.5 Patient's hyperlipid emia is well-contr olled on present medical therapy. Patient is tolerating , without difficulty , the current medication s. I have not made changes to the current regimen. Cont low cholestero l diet. [id number] Trenton Chávez MD [place] [facility] [address] [place] [address] 11/03/2020 12:07:20 11/03/2020 13:48:28 Essential hypertension 06403429 I10 Patient's blood pressure is well-contr olled on present medical therapy. Patient is tolerating , without difficulty , the current medication s. I have not made changes to the current regimen. Patient is advised to maintain a blood pressure diary. Cont low Na diet. Hyperlipidemia 96029072 E78.5 Patient's hyperlipid emia is well-contr olled on present medical therapy. Patient is tolerating , without difficulty , the current medication s. I have not made changes to the current regimen. Cont low cholestero l diet. Osteoarthritis 084916317 M19.90 Heart murmur 92603039 R0 1.1 His last ECHO is similar as last year which showed trace MR and mild TR with borderline pulmonary pressure (PASP 35 mmHg).. Normal LV systolic function (LVEF 55-60%).re peat echo before next visit 14434 Pop Farley MD [place] OFFICE [facility] [place] [address] 11/28/2021 16:55:40 11/28/2021 17:44:51 Essential hypertension 39730958 I10 Patient's blood pressure is well-contr olled on present medical therapy. Patient is tolerating , without difficulty , the current medication s. I have not made changes to the current regimen. Patient is advised to maintain a blood pressure diary. Cont low Na diet. Hyperlipidemia 56702514 E78.5 Patient's hyperlipid emia is well-contr olled on present medical therapy. Patient is tolerating , without difficulty , the current medication s. I have not made changes to the current regimen. Cont low cholestero l diet. Osteoarthritis 935158564 M19.90 Heart murmur 24921247 R0 1.1 His last ECHO is similar as last year which showed trace MR and mild TR with borderline pulmonary pressure (PASP 35 mmHg).. Normal LV systolic function (LVEF 55-60%).re peat echo before next visit Atypical chest pain 1025 15361 R07.89 Will get exercise stress echo, to look for any structural heart disease, and to look for any ischemia [id number] Pop Farley MD [place] OFF[facility] [place] [address] 05/29/2022 14:36:33 05/29/2022 15:19:02 Essential hypertension 47435352 I10 Now well controlled Hyperlipidemia 76479901 E78.5 LDL 91, Needs to keep LDL less than 70, and HDL more than 40.Will change to Crestor Osteoarthritis 507441169 M19.90 Heart murmur 39818824 R0 1.1 His last ECHO is similar as last year which showed trace MR and mild TR with borderline pulmonary pressure (PASP 35 mmHg).. Normal LV systolic function (LVEF 55-60%).re peat echo before next visit Atypical chest pain 1025 68601 R07.89 Negative stress echo. 07084 Pop Farley MD [place] OFF[facility] [place] [address] 12/15/2022 13:51:38 12/15/2022 14:19:51 Essential hypertension 94061042 I10 Now well controlled Hyperlipidemia 87734926 E78.5 LDL 91, Needs to keep LDL less than 70, and HDL more than 40.Will change to Crestor Osteoarthritis 112858879 M19.90 Heart murmur 01590284 R0 1.1 His last ECHO is similar as last year which showed trace MR and mild TR with borderline pulmonary pressure (PASP 35 mmHg).. Normal LV systolic function (LVEF 55-60%).re peat echo before next visit Atypical chest pain 1025 67626 R07.89 Negative stress echo. No recurrence [id number] Pop Farley MD [place] OFF[facility] [place] [address] 08/06/2023 15:40:48 08/06/2023 16:18:10 Essential hypertension 00032679 I10 Now well controlled Hyperlipidemia 23250687 E78.5 LDL 91, Needs to keep LDL less than 70, and HDL more than 40.Will change to Crestor Osteoarthritis 216885987 M19.90 Heart murmur 56488113 R0 1.1 His last ECHO is similar as last year which showed trace MR and mild TR with borderline pulmonary pressure (PASP 35 mmHg).. Normal LV systolic function (LVEF 55-60%).re peat echo before next visit Atypical chest pain 1025 78640 R07.89 Negative stress echo. No recurrence [id number] Pop Farley MD [place] OFF[facility] [place] [address] 07/28/2024 14:52:09 07/28/2024 15:26:43 Essential hypertension 39026268 I10 Now well controlled Hyperlipidemia 96481735 E78.5 LDL 77, Needs to keep LDL less than 70, and HDL more than 40.Will change to Crestor Osteoarthritis 044864907 M19.90 Heart murmur 97737369 R0 1.1 His last ECHO is similar as last year which showed trace MR and mild TR with borderline pulmonary pressure (PASP 35 mmHg).. Normal LV systolic function (LVEF 55-60%).re peat echo before next visit Atypical chest pain 1025 94634 R07.89 Negative stress echo. No recurrence Health Concerns Section Related Observation LastModified by Organization Detai ls LastModified Time None Recorded Concern Status LastModified by Organization Details LastModified Time None Recorded Advance Directives Directive None Recorded Payers Insurance Date Sequence Insurance Name Policy Number Policy English Covered Member ID English Member ID Guarantor Name 06/27/2023 3 [facility] () Cy P Paez [id number] Cy P Paez 07/25/2024 2 FOR LIFE ( - MEDICARE SUPPLEMENT) Cy P Paez [id number] Cy P Paez 07/27/2024 1 [place] Cy P Paez [id number] Cy P Paez 12/18/2021 1 [facility] Cy P Paez [id number] Cy P Paez Notes Date Note Type Note Provider Name and Address Organization Details Recorded Time 11/28/2021 text/html 11/28/21CC : Car diac follow upHPI: 61 y/o White Man with [...] 230. 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 No CP, SOB or [...] WBC 6.4, HGB 13.9, HCT 41.1, PLT 44570 CMP: NA 143, K 4.6, CL 106, [...] 09/17/14, no significant change. Pop Farley MD [address] [place], [address], [facility] - [facility] 11/28/2021 17:36:22 [...] 230. 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 No CP, SOB or [...] WBC 6.4, HGB 13.9, HCT 41.1, PLT 85329 CMP: NA 143, K 4.6, CL 106, [...] 09/17/14, no significant change. Pop Farley MD [address] [place], [address], [facility] 05/29/2022 15:15:31 12/15/2022 text/html [...] SE. He is pretty active since owns [employer] .denies any symptoms. No CP, SOB or [...] WBC 6.4, HGB 13.9, HCT 41.1, PLT 59958 CMP: NA 143, K 4.6, CL 106, [...] 09/17/14, no significant change. Pop Farley MD [address] [place], [address], [facility] 12/15/2022 14:17:46 08/06/2023 text/html [...] SE. He is pretty active since owns [employer] .denies any symptoms. No CP, SOB or [...] WBC 6.4, HGB 13.9, HCT 41.1, PLT 01068 CMP: NA 143, K 4.6, CL 106, [...] to echo 09/17/14, no significant change. Pop Almousalli, MD [address] [place], [address], [facility] - [facility] 08/06/2023 16:15:21 07/28/2024 text/html 07/14/24CC : Cardiac follow upHPI: 64 y/o White Man with past medical history of HTN, BPH, GERD, hiatal hernia and heart murmur is here for 1 year follow-up. He was last seen in the clinic on 08/06/23, since then he is doing well, he is activeHe denies ER visits and hospitalizations since he was last seen. Today reports:no ccDenies chest pain.Denies shortness of breath at rest. Has mild dyspnea on exertion.No orthopnea. No PNDs.Denies heart palpitations.Denies dizziness. Denies syncope or near syncope.No ankle or leg edema.No major bleeding events.No reported side effects from medications. Taking medications as prescribed with no missed doses.Denies snoring, daytime somnolence and AM headache.*Last LDL was 66 done on 07/17/23.Pt takes rosuvastatin 10 mg. Previously:EKG 08/06/23 : electrode misplacement warning V2-V3 electrodes possibly Reversed sinus rhythm P normal QRS left axis deviation RBBB QRS + 145 RSR in V1 S > 30 ms in I V5 V6 low voltage in precordial leads ST-T marked right precordial ST -T changes secondary to RBBB large negative T in V3 with small negative T in V2 inferiors ST-T changes secondary to RBBB negative T in aVF with negative T in III conclusion abnormal ECG He had negative SE. Had ECHO done in 09/17/14 showed normal [...] WBC 6.4, HGB 13.9, HCT 41.1, PLT 68847 CMP: NA 143, K 4.6, CL 106, [...] 09/17/14, no significant change. Pop Farley MD [address] [place], [address], [facility] 07/28/2024 15:21:13
[2024-08-06 12:29] VITALS: BP 151/75; PULSE 75; RESP 18; TEMP 36.8; O2SAT 98; BMI 26.5
[2024-08-06] MEDS: LACTATED RINGERS 1,000 ML 150 ML IV CONT (12:44)
--- NOTE | 2024-08-06 12:55 | P.PNAN_ITS ---
Anes - Initial Pre Proc Eval Procedure: Operation Date: 08/06/24 14:00 Proposed Procedures p Esophagogastroduodenoscopy - Alex Dorman MD Date/Time: 08/06/24 12:55 Surgeon: Alex Dorman MD Pre Op Diagnosis: Gastro-esophageal reflux disease without esophagit Patient Data Age: 64 Gender: M Height: 1.73 m Weight: 79.2 kg Last Vital Signs Temp 98.2 F 08/06/24 12:29 Pulse 75 08/06/24 12:29 Resp 18 08/06/24 12:29 BP 151/75 H 08/06/24 12:29 Pulse Ox 98 08/06/24 12:29 O2 Del Method Room Air 08/06/24 12:29 Allergies Allergy/AdvReac Type Severity Reaction Status Date / Time No Known Allergies Allergy Unknown Verified 08/06/24 12:35 Home Medications ?Medication ?Instructions ?Recorded ?Confirmed ?Type aspirin 81 mg capsule 81 mg PO DAILY 07/24/24 08/06/24 History lisinopril 20 mg tablet 20 mg PO DAILY 07/24/24 08/06/24 History omeprazole 40 mg capsule,delayed 40 mg PO DAILY 07/24/24 08/06/24 History release rosuvastatin 10 mg tablet 10 mg PO DAILY 07/24/24 08/06/24 History tamsulosin 0.4 mg capsule 0.4 mg PO DAILY 07/24/24 08/06/24 History Patient hx anesthesia problems: none Family hx anesthesia problems: none Results Review: All pre-operative results and documents have been reviewed as part of the pre- operative evaluation. [facility] Social History Social History Smoking status: Never smoker Substance use type: does not use Living arrangements: with family Spiritual care concerns: No Anes - Eval Final PreProcedure Day of Procedure 08/06/24 12:55 Patient weight: normal Heart: regular rate and rhythm and murmur Lungs: clear to auscultation Airway: Mallampati scale class II Neurological: alert and oriented Last oral intake: >/= 8 hours ASA classification: II Emergent: no Anesthetic plan: proceed Anesthesia type and monitoring: general GIVS and standard monitoring Results Review: All pre-operative results and documents have been reviewed as part of the pre- operative evaluation. Informed Consent: The patient's anesthetic plan and its attendant risks and benefits were discussed with the patient/family/POA. Questions were solicited and answers provided to the satisfaction of the patient/family/POA.
--- NOTE | 2024-08-06 13:00 | PM.IMHP ---
H&P: HPI History of Present Illness Date/Time: 08/06/24 13:00 Chief Complaint: GERD Narrative: this patient has been suffering from heartburn for several years, currently controlled with Prilosec 20 mg once a day. He states that when he stops taking the medication 1 or 2 days, he starts complaining of heartburn and chest pain episodes. He denies dysphagia or weight loss. His last EGD was in 2014, did not show Handley's esophagus or esophagitis. Review of Systems Review of Systems: All systems reviewed & are unremarkable except as noted in HPI and below PMFSH Social History Social History Smoking status: Never smoker Substance use type: does not use Living arrangements: with family Spiritual care concerns: No Meds Home Medications and Allergies Home Medications ?Medication ?Instructions ?Recorded ?Confirmed ?Type aspirin 81 mg capsule 81 mg PO DAILY 07/24/24 08/06/24 History lisinopril 20 mg tablet 20 mg PO DAILY 07/24/24 08/06/24 History omeprazole 40 mg capsule,delayed 40 mg PO DAILY 07/24/24 08/06/24 History release rosuvastatin 10 mg tablet 10 mg PO DAILY 07/24/24 08/06/24 History tamsulosin 0.4 mg capsule 0.4 mg PO DAILY 07/24/24 08/06/24 History Allergies Allergy/AdvReac Type Severity Reaction Status Date / Time No Known Allergies Allergy Unknown Verified 08/06/24 12:35 Vital Signs Vital Signs - 24 hr 08/06/24 12:29 Temperature 98.2 F Pulse Rate 75 Respiratory Rate 18 Blood Pressure 151/75 H Pulse Oximetry 98 Oxygen Delivery Room Air Exam Const: General: cooperative and healthy appearing Resp: Effort & Inspection: normal respiratory effort and able to speak in complete sentences Auscultation: clear to auscultation bilaterally Cardio: Rate: regular rate Rhythm: regular rhythm GI: Inspection: normal to inspection GI Palp: No No hepatosplenomegaly present Auscultation: normal bowel sounds Rectal Exam: deferred Skin: General skin exam: normal color Psych: Appearance: grossly normal Mental Status: mental status grossly normal Assessment and Plan Assessment and plan (1) GERD (gastroesophageal reflux disease): Code(s): K21.9 - Gastro-esophageal reflux disease without esophagitis Status: Acute Assessment and Plan: The patient is deemed a good candidate for the procedure. Consent signed. Will proceed.
--- NOTE | 2024-08-06 13:15 | S_PTH ---
PATIENT: Cy Paez LOC: [facility] Gracia#:[id number] AGE/SX: 64/M ROOM: RE08/06/[address]: Alex Dorman MD : 1960 BED: DIS: 08/06/2024 SPEC #: [id number] RECD: 08/06/24 14:18 STATUS: NILDA REQ #: [id number] KUNAL: 08/06/24 13:[address]: Alex Dorman DEPT: [facility] Surgical RECD BY: Ivanna Jones ENTERED: 08/06/24 14:18 SP TYPE: Surgical OTHR DR: ELKADER Tissues: A - Gastric Biopsy B - Gastric Biopsy Procedures: Hematoxylin and Eosin Stain Gross and Microscopic Level 4
[2024-08-06 13:17] VITALS: BP 122/70; PULSE 61; RESP 22; O2SAT 100
[2024-08-06 13:27] VITALS: BP 122/74; PULSE 61; RESP 17; O2SAT 100
[2024-08-06 13:37] VITALS: BP 143/79; PULSE 60; RESP 20; O2SAT 100
== END 2024-08-06 13:59 | disposition home or self-care (01) ==
PROVIDERS: Visit Provider Internal Medicine Gastroenterology
PROC: 0DJ08ZZ Inspection of Upper Intestinal Tract, Via Natural or Artificial Opening Endoscopic (ICD-10-PCS; CPT 43239; principal; 2024-08-06 14:00)
DX: K21.9 Gastro-esophageal reflux disease without esophagitis (principal); K29.30 Chronic superficial gastritis without bleeding; K31.7 Polyp of stomach and duodenum; K44.9 Diaphragmatic hernia without obstruction or gangrene; Z79.82 Long term (current) use of aspirin
CPT/HCPCS: 43239; 88305; J2003; J2704; J7120

== ENCOUNTER 2024-09-14 16:02 | Outpatient (CLI) | payer MEDICARE, OTHER, SELFPAY ==
--- NOTE | ~2024-09-14 | XR_ITS ---
Supine and upright views of the abdomen Clinical history: Status post lithotripsy COMPARISON: 07/20/2024 Findings: Bowel gas pattern is nonspecific. No evidence for obstruction or free air. Questionable sma ll bilateral renal stones versus bowel contents. Osseous structures are intact. Impression: Questionable small bilateral renal stones versus bowel contents. Reviewed, dictated and finalized at [facility]. Impression: Questionable small bilateral renal stones versus bowel contents.
--- OUTSIDE RECORDS SUMMARY | 2024-09-14 16:08 | XMS_ITS | Encounter Summary ---
Author Organization [facility] Address [address] [place] [address] Care Team Providers Care Paving Foreman Name Role Phone Unavailable Primary Care Provider Unavailabl e Encounter Details Date Type Department Care Team (Late st Contact Info) Description 10/01/2023 Lab Requisition [facility] - DermPath Lab [address] [place] [id number] Regino Mcneal MD [facility] DERMATOLOGY [address] [place] [phone] Neoplasm of uncertain behavior of skin [...] AM CDT) Case Report Dermatopathology Report Case: [id number] Authorizing Provider: Regino Mcneal MD Collected: 10/01/2023 03:33 AM Ordering Location: [facility] Physician [facility] - Received: 10/02/2023 12:55 PM DermPath Lab [...] characteristic determined by the Dermatopathology Laboratory at [facility], directed by Dr. Rai Real. These tests need not be, and therefore are not, approved by the [place] Food and Drug Administration. The tests are used for clinical purposes. Billing Codes Specimen Charges Stain Charges 42292 1 1:57 PM CDT DERMATOPATHOLOGY LABORATORY Embedded Images 1:57 PM CDT DERMATOPATHOLOGY LABORATORY Pathology/Cytolo gy TISSUE SPECIMEN FROM SKIN / Unknown 10/01/2023 3:33 AM CDT 10/02/2023 12:55 PM CDT us Regino Mcneal MD LAB - PATHOLOGY/CYTOLOGY CEM TORRES Final Result DERMATOPATHOLOGY LABORATORY [facility] - Department of Dermatology [address] [place] [address], [facility] [phone] documented in this encounter Visit Diagnoses Diagnosis Neoplasm of uncertain behavior of skin documented in this encounter
--- OUTSIDE RECORDS SUMMARY | 2024-09-14 16:08 | XMS_ITS | Clinical Summary ---
Author Organization [facility] Address [address] [place] [address] Care Team Providers Care Consumer Experience Consultant Name Role Phone Unavailable Primary Care Provider Unavailabl e Source Comments [facility],non-owned Affiliates and Associated Physician Practices is amultiple site organization consisting of ambulatory clinics and hospital sitesin [place] and [place]. This disclosure is being madepursuant to the Care Everywhere program and may not contain all information available regarding this patient. Last updated 17.[facility] [place] Social History Tobacco Use Types Packs/Day Years [...] season) 2023 DEPRESSION SCREENING 03/11/2024 INFLUENZA VACCINE (#1) 2024 Respiratory Syncytial Virus (RSV) Vaccine Pt: [...] age to complete this topic Insurance MEDICARE SELF PAY NO INSURANCE Member Subscriber Plan / Payer (Ef fective for All Dates) Name:Cy Coppola Member ID:Not on file Relation to Subscriber:Not on file Name:CY COPPOLA Subscriber ID:Not on file (Home) Address: [address] [place] [id number] Payer ID:Not on file Group ID:Not on file Type:Self Pay Address: [place], [place]
--- OUTSIDE RECORDS SUMMARY | 2024-09-14 16:08 | XMS_ITS | Clinical Summary ---
Author Organization [facility] Address [address] [place] [address] Care Team Providers Care Hypo Dipper Name Role Phone Pop Farley MD Unavailable [phone] Terrance Waters MD Primary Care Provider [phone] Allergies No known active allergies Medications lisinopril (PRINIVIL) 20 MG tablet Take 1 tablet (20 mg total) by mouth every evening. Active aspirin 81 MG chewable tablet Chew 1 tablet (81 mg total) by mouth nightly. Active tamsulosin (FLOMAX) 0.4 MG Cap Take 1 capsule (0.4 mg total) by mouth nightly. Active omeprazole (PRILOSEC) 40 MG capsule Take 1 capsule (40 mg total) by mouth daily. Active rosuvastatin (CRESTOR) 10 MG tablet Take 1 tablet (10 mg total) by mouth nightly at bedtime. Active Multiple Vitamins-Minera ls (MULTIVITAMIN GUMMIES ADULT OR) Take 1 chewable tablet by mouth daily. Active VIAGRA 100 MG tablet Take 1 tablet (100 mg total) by mouth. 5 Active HYDROcodone-clement taminophen (NORCO) 5-325 MG tabletIndicatio ns:Acute Pain < 7 Day Supply Take 1 tablet by mouth every 6 (six) hours as needed. Indications: Acute Pain < 7 Day Supply 12 tablet 5 08/22/19 25 Active Problems Problem Noted Date Diagnosed Date Renal stone 08/18/2024 Encounters Date Type Department Care Team Description 08/18/2024 11:44 AM CDT Anesthesia [place] [address] Tye Walter MD Jarvis, Brittany L, CNP 08/18/2024 11:31 AM CDT - 08/18/2024 12:48 PM CDT Surgery [place] [address] Terrance Li MD LEFT EXTRACOROPOREAL SHOCK WAVE LITHOTRIPSY 08/18/2024 8:28 AM CDT - 08/18/2024 1:50 PM CDT Hospital Encounter [facility] [address] Terrance Li MD Discharge Disposition: Home or Self Care (Routine Discharge) 08/18/2024 Travel 08/11/2024 12:34 PM CDT - 08/11/2024 11:59 PM CDT Hospital Encounter [facility] [place] [address] Terrance Li MD Discharge Disposition: Home or Self Care (Routine Discharge) 08/11/2024 Prep for Procedure [place] [place] [address] Terrance iL MD 08/11/2024 Travel from Last 3 Months Social History Tobacco Use Types Packs/Day Years Used Date Smoking Tobacco: Never Smokeless Tobacco: Never Tobacco Cessation:Counseling Given: Not Answered Alcohol Use Standard Drinks/Week Comments Not Currently 0 (1 standard drink = 0.6 oz pur e alcohol) Sex and Gender Information Value Date Recorded Sex Assigned at Male 08/11/2024 12:27 PM CDT Legal Sex Male 2:10 PM CDT Gender Identity Not on file Sexual Orientation Not on file Last Filed Vital Signs Vital Sign Reading Time Taken Comments Blood Pressure 128/87 08/18/2024 1:45 PM CDT Pulse 68 08/18/2024 1:45 PM CDT Temperature 36.7 C (98 F) 08/18/2024 1:45 PM CDT Respiratory Rate 16 08/18/2024 1:45 PM CDT Oxygen Saturation 98% 08/18/2024 1:45 PM CDT Inhaled Oxygen Concentration - - Weight 79.4 kg (175 lb 0.7 oz) 08/18/2024 9:00 A M CDT Height 172.7 cm (5' 8) 08/18/2024 9:00 AM CDT Body Mass Index 26.62 08/18/2024 9:00 AM CDT Plan of Treatment Health Maintenance Due Date Last Done Comments Colorectal Cancer Screening Colonoscopy (10 Years) 1960 Hepatitis C 1976 Annual Medicare Wellness Visit 05/31/2023 COVID-19 Vaccine ( season) 2024 03/14/2024, 03/07/2023, 11/23/2021, Additional history exists DTaP, Tdap and Td Vaccines (3 - Td or Tdap) 08/11/2034 08/11/2024, 05/13/2008, 04/08/1997, Additional history exists Meningococcal Vaccine Aged Out 10/06/1996 No nichelle cate eligible based on patient's age to complete this topic Zoster Vaccines Completed 07/26/2018, 02/08, 02/24/2018, Additional history exists RSV Immunization or 60+ Years Completed 01/13/2023 Pneumococcal Vaccine: 50+ Years Completed 08/11/2024 Meningococcal B Vaccine Aged Out No l onger eligible based on patient's age to complete this topic RSV Immunizations Under 20 Months Aged Out No longer eligible based on patient's age to complete this topic Procedures Procedure Name Priority Date/Time Associated Diagnosis Comments FRAGMENTING OF KIDNEY STONE 08/18/2024 11:44 AM CDT CALCIUM KIDNEY STONE; BENIGN PROSTATIC HYPERPLASIA; ERECTILE DYSFUCTION N20.0; N40.0; N52.01 Case Notes SCHED BY FAX ON 08/05/24 Gennaro PHONE ASSESS URINE BACTERIA CULTURE Routine 08/11/2024 12:47 PM CDT Calcium kidney stone Benign prostate hyperplasia Erectile dysfunction due to arterial insufficiency HC URINALYSIS AUTO W/O MICRO Routine 08/11/2024 12:47 PM CDT Calcium kidney stone Benign prostate hyperplasia Erectile dysfunction due to arterial insufficiency PROTHROMBIN TIME, VENOUS Routine 08/11/2024 12:47 PM CDT Calcium kidney stone Benign prostate hyperplasia Erectile dysfunction due to arterial insufficiency PARTIAL THROMBOPLASTIN TIME,PTT Routine 08/11/2024 12:47 PM CDT Calcium kidney stone Benign prostate hyperplasia Erectile dysfunction due to arterial insufficiency BASIC METABOLIC PANEL Routine 08/11/2024 12:47 PM CDT Calcium kidney stone Benign prostate hyperplasia Erectile dysfunction due to arterial insufficiency CBC W/DIFF AUTOMATED Routine 08/11/2024 12:47 PM CDT Calcium kidney stone Benign prostate hyperplasia Erectile dysfunction due to arterial insufficiency from Last 3 Months Results * (ABNORMAL) URINALYSIS (08/11/2024 12:47 PM CDT) SPECIMEN TYPE URINE CLEAN CATCH 08/11/2024 12:[address] [facility] COLOR (U) YELLOW 08/11/2024 1:[address] [facility] TRANSPARENCY CLEAR 08/11/2024 1:[address] [facility] SPECIFIC GRAVITY (U) 1.029 1.001 - 1.030 08/11/2024 1:[address] [facility] U PH 6.0 5.0 - 9.0 08/11/2024 1:[address] [facility] LEUKOCYTES (U) NEGATIVE NEGATIVE 08/11/2024 1:[address] [facility] NITRITES NEGATIVE NEGATIVE 08/11/2024 1:[address] [facility] PROTEIN RANDOM (U) NEGATIVE <30 MG/DL 08/11/2024 1:[address] [facility] GLUCOSE (U) NORMAL NORMAL MG/DL 08/11/2024 1:[address] [facility] KETONES MG/DL (U) NEGATIVE NEGATIVE MG/DL 08/11/2024 1:[address] [facility] UROBILINOGEN 2.0(A) NORMAL MG/DL 08/11/2024 1:[address] [facility] BILIRUBIN (U) NEGATIVE NEGATIVE MG/DL 08/11/2024 1:[address] [facility] BLOOD (U) NEGATIVE NEGATIVE 08/11/2024 1:[address] [facility] URINE SPECIMEN OBTAINED BY CLEAN CATCH PROCEDURE / Unknown 08/11/2024 12:47 PM CDT us Terrance Li MD URINE ORDERABLES Final Re sult Performing Organization Address [facility]/ZIP Co de Phone Number [facility] [address] [place] [address], [place] [phone] * URINE BACTERIA CULTURE (08/11/2024 12:47 PM CDT) SPEC DESCRIPTION URINE CLEAN CATCH 08/11/2024 12:[address] [facility] SPECIAL REQUESTS NO SPECIAL REQUEST 08/11/2024 12:[address] [facility] CULTURE RESULT NO GROWTH 2 DAYS 08/13/2024 6:[address] [facility] URINE SPECIMEN OBTAINED BY CLEAN CATCH PROCEDURE / Unknown 08/11/2024 12:47 PM CDT 08/11/2024 12:49 PM CDT us Terrance Li MD MICROBIOLOGY - GENERAL OR DERABLES Final Result Performing Organization Address City/[facility]/ZIP Co de Phone Number [facility] [address] [place] [address], [place] [phone] * PTT, PARTIAL THROMBOPLASTIN TIME (08/11/2024 12:47 PM CDT) PTT 32.3 25.1 - 36.5 SEC 08/11/2024 1:[address] [facility] 08/11/2024 12:4 7 PM CDT Terrance Li MD LABORATORY Final Res ult Performing Organization Address City/[facility]/ZIP Co de Phone Number [facility] [address] [place] [address], [place] [phone] * PROTIME/INR, VENOUS (08/11/2024 12:47 PM CDT) PROTIME 11.4 10.2 - 12.9 SEC 08/11/2024 1:[address] [facility] INR 1.0 08/11/2024 1:[address] [facility] Comment: Recommended INR Therapeutic Goals: 2.0-3.0 Routine Therapy 2.5-3.5 Mechanical Prosthetic Valves (High Risk) 08/11/2024 12:4 7 PM CDT Terrance Li MD LABORATORY Final Res ult [facility] [address] [place] [address], [place] [phone] * (ABNORMAL) BASIC METABOLIC PANEL (08/11/2024 12:47 PM CDT) GLUCOSE 141(H) 70 - 99 MG/DL 08/11/2024 1:[address] [facility] BUN 23(H) 7 - 18 MG/DL 08/11/2024 1:[address] [facility] CREATININE S/P/B 1.09 0.7 - 1.3 MG/DL 08/11/2024 1:[address] [facility] SODIUM S/P/B 135(L) 136 - 145 MMOL/L 08/11/2024 1:[address] [facility] POTASSIUM S/P/B 3.8 3.5 - 5.1 MMOL/L 08/11/2024 1:[address] [facility] CHLORIDE S/P/B 109 97 - 115 MMOL/L 08/11/2024 1:[address] [facility] CO2 26.6 21 - 32 MMOL/L 08/11/2024 1:[address] [facility] CALCIUM S/P/B 9.2 8.5 - 10.1 MG/DL 08/11/2024 1:[address] [facility] ANION GAP NOT CALCULATED 2 - 10 MMOL/L 08/11/2024 1:[address] [facility] BUN CREATININE RATIO 21.1 6 - 26 08/11/2024 1:[address] [facility] GFR ESTIMATE 75(L) >90 ML/MIN/1. 73 M2 08/11/2024 1:[address] [facility] Comment: NOTE: eGFR is not calculated for patients <18 years of age or gender unknown. This is an estimated GFR calculation using the new CKD EPI creatinine equation without race and so does not require a correction factor for race. This estimated GFR should not be used for calculating drug doses. 08/11/2024 12:4 7 PM CDT us Terrance Li MD LABORATORY Final Res ult [facility] [address] [place] [address], [place] [phone] * (ABNORMAL) CBC W/DIFF AUTOMATED (08/11/2024 12:47 PM CDT) [facility] WBC 8.06 4.5 - 11.0 x10'3/uL 08/11/2024 1:[address] [facility] RBC 4.41(L) 4.70 - 6.10 x10'6/uL 08/11/2024 1:[address] [facility] HGB 13.9(L) 14.0 - 18.0 G/DL 08/11/2024 1:[address] [facility] HCT 42.3(L) 43.0 - 54.0 % 08/11/2024 1:[address] [facility] MCV 95.9(H) 80.0 - 94.0 FL 08/11/2024 1:[address] [facility] MCH 31.5(H) 27.0 - 31.0 PG 08/11/2024 1:[address] [facility] MCHC 32.9 32.0 - 36.0 G/DL 08/11/2024 1:[address] [facility] RDW 12.6 11.5 - 14.5 % 08/11/2024 1:[address] [facility] PLT 227 130 - 400 x10'3/uL 08/11/2024 1:[address] [facility] MPV 10.4 9.3 - 12.2 FL 08/11/2024 1:[address] [facility] DIFFERENTIAL TYPE AUTOMATED DIFFERENTIAL 08/11/2024 1:[address] [facility] NEUTROPHILS % 69.0 % 08/11/2024 1:[address] [facility] LYMPHOCYTES % 17.5 % 08/11/2024 1:[address] [facility] MONOCYTES % 9.1 % 08/11/2024 1:[address] [facility] EOSINOPHILS 3.6 % 08/11/2024 1:[address] [facility] BASOPHILS 0.4 % 08/11/2024 1:[address] [facility] IMMATURE GRANS % 0.4 % 08/12/19 1:[address] [facility] ABS. NEUTROPHILS 5.57 1.80 - 7.70 x10'3/uL 08/11/2024 1:[address] [facility] ABS. LYMPHOCYTES 1.41 1.00 - 4.80 x10'3/uL 08/11/2024 1:[address] [facility] ABS. MONOCYTES 0.73 0.30 - 0.82 x10'3/uL 08/11/2024 1:[address] [facility] ABS. EOSINOPHILS 0.29 0.04 - 0.54 x10'3/uL 08/11/2024 1:[address] [facility] ABS. BASOPHILS 0.03 0.01 - 0.08 x10'3/uL 08/11/2024 1:[address] [facility] ABS. IMMATURE GRANULOCYTES 0.03 0.00 - 0.49 x10'3/uL 08/11/2024 1:[address] [facility] 08/11/2024 12:4 7 PM CDT us Terrance Li MD LABORATORY Final Res ult [facility] [address] [place] [address], from Last 3 Months Insurance MEDICARE [facility] Care Teams Hypo Dipper Relationship Specialty Start Date End Date Terrance Waters MD [address] [facility] [place] [address] [place] [phone] PCP - General FAMILY PRACTICE 08/11/24 Pop Farley MD [address] [place] [address] Consulting Physician CARDIOVASCULAR DISEASE 08/11/24
--- OUTSIDE RECORDS SUMMARY | 2024-09-14 16:08 | XMS_ITS | Data Portability ---
Author Organization [facility] OFFICE Address [address] [place] [address] Care Team Providers Care Professor Of Visual Arts Name Role Phone [facility] Primary Care Provider [phone] Assessment No assessment recorded. Plan of Treatment Reminders Order Date Submit Date Provider Last Modified By Organization Details Last Modified Time Details Appointments ESTABLI SHED PATIENT DETAILE D 2025 02:00P M Pop Edwards i, MD Not available Not available Not available Lab None recorde d. Referral None recorde d. Procedures None recorde d. Surgeries None recorde d. Imaging None recorde d. Medication Orders lisinop ril 20 mg tablet 2024 025 [facility], [address] [place] [address], [id number], 07/28/2024 15:25:52 rosuvas tatin 10 mg tablet 2024 025 [facility], [address] [place] [address], [id number], 07/28/2024 15:25:51 rosuvas tatin 10 mg tablet 2022 023 [facility], [address] [place] [address], [id number], 05/29/2022 15:15:20 Patient TargetsNo targets recorded. Patient Instructions Encounter Date Encounter Id Patient Instructions Last Modified By Organization Details Last Modified Time 12/15/2022 [id number] Exercise advised Low cholesterol diet advised Low sodium diet advised. [email or web address] Not available 12/15/2022 14:17:34 08/06/2023 [id number] Exercise advised Low cholesterol diet advised Low sodium diet advised. [email or web address] Not available 08/06/2023 16:14:47 07/28/2024 [id number] Exercise advised Low cholesterol diet advised Low [...] Not Available 2021 13:18:41 05/31/19 23 05/29/2022 [facility] rocar diogr am No observ ation record ed. [email or web address] Not Available 2022 14:12:42 12/26/19 23 12/15/2022 elect rocar diogr am No observ ation record ed. [email or web address] Not Available 2022 15:11:48 08/08/19 24 08/06/2023 [facility] rocar diogr am No observ ation record ed. [email or web address] Not Available 12:18:22 07/30/19 25 07/28/2024 [facility] rocar diogr am No observ ation record ed. [email or web address] Not Available 2024 13:00:42 08/14/19 25 08/12/2024 , echoc ardio gram No observ ation record ed. [email or web address] Not Available 2024 19:23:27 08/21/19 25 08/12/2024 , echoc ardio gram No observ ation record ed. [email or web address] Not Available 2024 10:58:10 Result Notes Documentation Provider Name and Address Organization Details Recorded Time Lipid Panel, Blood : 07/17/23:Na 143,K 4.1,CL 104,CO2 24,GLU 102,BUN 22,Cr 1.07,AST 15,ALT 19,CK 79. 07/17/23:TC 132,TG 43,HDL 56,LDL 66. Anahi Barros [facility] 07/18/2023 13:30:57 Problems Name Problem SNOMED Code Status Onset Date Resolution Date Notes Provider Name and Address Organization Details Recorded Time Heart murmur 85211460 Active 2015 Anahi Barros [facility] 6 16:37:10 Hiatal hernia 27617271 [facility] 6 04:26:28 Gastroesophage al reflux disease 345444314 Active 2015 [facility] 6 16:36:56 Benign prostatic hyperplasia 629866512 Active 2015 [facility] Joseline [facility] 6 04:26:43 Essential hypertension 06242235 [facility] 6 16:37:03 Hyperlipidemia 72391802 [facility] 6 15:27:22 Osteoarthritis 528778486 Active 2017 [facility] 8 15:14:33 Problem Notes None recorded. Procedures Surgical History Date Name Laterality Status Provider Name and Address Organization Details Recorded Time Removal of sperm duct(s) completed [facility] 10/16/2015 16:37:39 Fragmenting of kidney stone completed [facility] 10/16/2015 16:37:52 Imaging Results None recorded. Procedure [...] No t Available sildenafil 100 mg tablet TAKE 1 TABLET BY MOUTH NEEDED. DO NOT TAKE WITHIN 4 HOURS OF TAMSULOS IN. active Not Available Not Available No t [...] 2024 active Not Available Not Available Not Anuradha worley [place] Sinus Rinse with packet 11/29 completed Not [...] x 4)/0.5 mL IM syringe PHARMACY ADMINIST EREDali 11/28 completed Not Available Not Available Not Available Vitals Date Recorded Body height Body mass index (BMI) Body weight Heart rate Respiratory rate Oxygen saturation Oxygen saturation in Arterial blood by Pulse oximetry Systolic And Diastolic Provider Name and Address Organization Details Last Updated DateTime 3 172.72 cm 27.4 kg/m2 03486.6 3 g 69 /min 16 /min 97 % 97 % 124/82 mm[Hg] Germán Jain [facility] 3 14:59:59 Date Recorded Body height Body mass index (BMI) Body weight Heart rate Oxygen saturation Oxygen saturation in Arterial blood by Pulse oximetry Systolic And Diastolic Provider Name and Address Organization Details Last Updated DateTime 5 172.72 cm 26.9 kg/m2 38710.8 5 g 54 /min 97 % 97 % 125/79 mm[Hg] Estephanie Ochoause [facility] 5 15:06:44 Date Recorded Body height Body mass index (BMI) Body weight Heart rate Oxygen saturation Oxygen saturation in Arterial blood by Pulse oximetry Systolic And Diastolic Provider Name and Address Organization Details Last Updated DateTime 4 172.72 cm 27 kg/m2 64105.7 2 g 70 /min 98 % 98 % 112/68 mm[Hg] Cori Juan David [facility] 4 15:56:28 Date Recorded Body height Body mass index (BMI) Body weight Heart rate Respiratory rate Oxygen saturation Oxygen saturation in Arterial blood by Pulse oximetry Systolic And Diastolic Provider Name and Address Organization Details Last Updated DateTime 2 172.72 cm 25.8 kg/m2 41130.7 g 77 /min 16 /min 98 % 98 % 112/60 mm[Hg] Germán Jain [facility] 2 17:16:43 Date Recorded Body height Body mass index (BMI) Body weight Heart rate Respiratory rate Oxygen saturation Oxygen saturation in Arterial blood by Pulse oximetry Systolic And Diastolic Provider Name and Address Organization Details Last Updated DateTime 3 172.72 cm 26.5 kg/m2 44561.0 7 g 71 /min 16 /min 98 % 98 % 126/74 mm[Hg] Germán Jain [facility] 3 14:03:06 Social History Question Answer Notes LastModified by Organizat ion Details LastModified Time Tobacco Smoking Status Never Smoker Not Available [facility] 01/12/2020 03:30:18 What Was The Date Of Your Most Recent Tobacco Screening? 11/29/2016 [id number] Information not available 01/12/2020 How Much Tobacco Do You Smoke? No [id number] Information not available 01/12/2020 How Many Years Have You Smoked Tobacco? 0 [id number] Information not available 01/12/2020 Sex: Unknown Functional Status Question Answer Note LastModified by Organizat ion Details LastModified Time Do you or have you ever used smokeless tobacco? Never used smokeless tobacco [id number] Information not available 01/12/2020 Do you or have you ever used e-cigarettes or vape? Never used electronic cigarettes [id number] Information not available 01/12/2020 Mental Status None recorded. Family History Relationship Description Onset Age of this Age Resolved Age Notes LastModified by Organization Details LastModified Time Mother Hypertensive disorder [email or web address] Not available 2015 16:41:37 Father Hypertensive disorder [email or web address] Not available 2015 16:41:43 Maternal Uncle Coronary arterioscler osis s/p PCI [email or web address] Not available 10/16/2015 16:42:13 Medical History Condition Response Genitourinary Disease Y GERD/Reflux Y Hypertension Y Past Encounters Encounter ID Performer Location Encounter Start Date Encounter Closed Date Diagnosis/Indication Diagnosis SNOMED-CT Code Diagnosis ICD10 Code Diagnosis Note [id number] Trenton Chávez MD [place] OFF[facility] [place] [address] 11/02/2015 14:17:05 11/03/2015 11:00:56 Essential hypertension 63310809 I10 Patient's blood pressure is well-contr olled on present medical therapy. Patient is tolerating , without difficulty , the current medication s. I have not made changes to the current regimen. Patient is advised to maintain a blood pressure diary. Cont low Na diet. Heart murmur 72931494 R0 1.1 pt had ECHO last year which showed trace MR and trace TR. Will repeat ECHO in one year. He does not need dental prophylaxi s. Hyperlipidemia 29214833 E78.5 Patient's hyperlipid emia is well-contr olled on present medical therapy. Patient is tolerating , without difficulty , the current medication s. I have not made changes to the current regimen. Cont low cholestero l diet. [id number] Pop Farley MD [place] [facility] [address] [place] [address] 11/29/2016 14:51:44 11/30/2016 09:51:37 Essential hypertension 51150228 I10 Patient's blood pressure is well-contr olled on present medical therapy. Patient is tolerating , without difficulty , the current medication s. I have not made changes to the current regimen. Patient is advised to maintain a blood pressure diary. Cont low Na diet. Heart murmur 04266798 R0 1.1 His recent ECHO is similar as last year which showed trace MR and mild TR with borderline pulmonary pressure (PASP 35 mmHg).. Normal LV systolic function (LVEF 55-60%). Will repeat ECHO in two years. Hyperlipidemia 75687393 E78.5 Patient's hyperlipid emia is well-contr olled on present medical therapy. Patient is tolerating , without difficulty , the current medication s. I have not made changes to the current regimen. Cont low cholestero l diet.Will repeat lipids [id number] Pop Farley MD [place] [facility] [place] [address] 11/28/2017 14:44:07 11/28/2017 15:37:16 Essential hypertension 90736504 I10 Patient's blood pressure is well-contr olled on present medical therapy. Patient is tolerating , without difficulty , the current medication s. I have not made changes to the current regimen. Patient is advised to maintain a blood pressure diary. Cont low Na diet. Heart murmur 68548256 R0 1.1 His recent ECHO is similar as last year which showed trace MR and mild TR with borderline pulmonary pressure (PASP 35 mmHg).. Normal LV systolic function (LVEF 55-60%). Will repeat ECHO in two years. Hyperlipidemia 41097784 E78.5 Patient's hyperlipid emia is well-contr olled on present medical therapy. Patient is tolerating , without difficulty , the current medication s. I have not made changes to the current regimen. Cont low cholestero l diet.Will repeat lipids [id number] Trenton Chávez MD [place] [facility] [place] [address] 11/27/2018 14:48:41 11/27/2018 15:56:52 Essential hypertension 16772980 I10 Patient's blood pressure is well-contr olled on present medical therapy. Patient is tolerating , without difficulty , the current medication s. I have not made changes to the current regimen. Patient is advised to maintain a blood pressure diary. Cont low Na diet. Heart murmur 23924924 R0 1.1 His last ECHO is similar as last year which showed trace MR and mild TR with borderline pulmonary pressure (PASP 35 mmHg).. Normal LV systolic function (LVEF 55-60%). Will repeat ECHO in two years. Hyperlipidemia 39671770 E78.5 Patient's hyperlipid emia is well-contr olled on present medical therapy. Patient is tolerating , without difficulty , the current medication s. I have not made changes to the current regimen. Cont low cholestero l diet. [id number] Jamila Costa MD [place] [facility] [address] [place] [address] 11/02/2019 11:58:25 11/02/2019 12:33:21 Essential hypertension 83179375 I10 Patient's blood pressure is well-contr olled on present medical therapy. Patient is tolerating , without difficulty , the current medication s. I have not made changes to the current regimen. Patient is advised to maintain a blood pressure diary. Cont low Na diet. Heart murmur 01902537 R0 1.1 His last ECHO is similar as last year which showed trace MR and mild TR with borderline pulmonary pressure (PASP 35 mmHg).. Normal LV systolic function (LVEF 55-60%).re peat echo before next visit Hyperlipidemia 46534599 E78.5 Patient's hyperlipid emia is well-contr olled on present medical therapy. Patient is tolerating , without difficulty , the current medication s. I have not made changes to the current regimen. Cont low cholestero l diet. [id number] Trenton Chávez MD [place] [facility] [address] [place] [address] 11/03/2020 12:07:20 11/03/2020 13:48:28 Essential hypertension 10871163 I10 Patient's blood pressure is well-contr olled on present medical therapy. Patient is tolerating , without difficulty , the current medication s. I have not made changes to the current regimen. Patient is advised to maintain a blood pressure diary. Cont low Na diet. Hyperlipidemia 39569202 E78.5 Patient's hyperlipid emia is well-contr olled on present medical therapy. Patient is tolerating , without difficulty , the current medication s. I have not made changes to the current regimen. Cont low cholestero l diet. Osteoarthritis 181487822 M19.90 Heart murmur 44328745 R0 1.1 His last ECHO is similar as last year which showed trace MR and mild TR with borderline pulmonary pressure (PASP 35 mmHg).. Normal LV systolic function (LVEF 55-60%).re peat echo before next visit [id number] Pop Farley MD [place] [facility] [address] [place] [address] 11/28/2021 16:55:40 11/28/2021 17:44:51 Essential hypertension 32152488 I10 Patient's blood pressure is well-contr olled on present medical therapy. Patient is tolerating , without difficulty , the current medication s. I have not made changes to the current regimen. Patient is advised to maintain a blood pressure diary. Cont low Na diet. Hyperlipidemia 76933884 E78.5 Patient's hyperlipid emia is well-contr olled on present medical therapy. Patient is tolerating , without difficulty , the current medication s. I have not made changes to the current regimen. Cont low cholestero l diet. Osteoarthritis 666582412 M19.90 Heart murmur 75647285 R0 1.1 His last ECHO is similar as last year which showed trace MR and mild TR with borderline pulmonary pressure (PASP 35 mmHg).. Normal LV systolic function (LVEF 55-60%).re peat echo before next visit Atypical chest pain 1025 96248 R07.89 Will get exercise stress echo, to look for any structural heart disease, and to look for any ischemia [id number] Pop Farley MD [place] [facility] [address] [place] [address] 05/29/2022 14:36:33 05/29/2022 15:19:02 Essential hypertension 53471352 I10 Now well controlled Hyperlipidemia 71879623 E78.5 LDL 91, Needs to keep LDL less than 70, and HDL more than 40.Will change to Crestor Osteoarthritis 408149912 M19.90 Heart murmur 59969267 R0 1.1 His last ECHO is similar as last year which showed trace MR and mild TR with borderline pulmonary pressure (PASP 35 mmHg).. Normal LV systolic function (LVEF 55-60%).re peat echo before next visit Atypical chest pain 1025 76910 R07.89 Negative stress echo. [id number] Pop Farley MD [place] [facility] [address] [place] [address] 12/15/2022 13:51:38 12/15/2022 14:19:51 Essential hypertension 32491959 I10 Now well controlled Hyperlipidemia 08860925 E78.5 LDL 91, Needs to keep LDL less than 70, and HDL more than 40.Will change to Crestor Osteoarthritis 482501688 M19.90 Heart murmur 06399488 R0 1.1 His last ECHO is similar as last year which showed trace MR and mild TR with borderline pulmonary pressure (PASP 35 mmHg).. Normal LV systolic function (LVEF 55-60%).re peat echo before next visit Atypical chest pain 1025 59410 R07.89 Negative stress echo. No recurrence [id number] Pop Farley MD [place] [facility] [address] [place] [address] 08/06/2023 15:40:48 08/06/2023 16:18:10 Essential hypertension 97883876 I10 Now well controlled Hyperlipidemia 81099623 E78.5 LDL 91, Needs to keep LDL less than 70, and HDL more than 40.Will change to Crestor Osteoarthritis 710470023 M19.90 Heart murmur 87097281 R0 1.1 His last ECHO is similar as last year which showed trace MR and mild TR with borderline pulmonary pressure (PASP 35 mmHg).. Normal LV systolic function (LVEF 55-60%).re peat echo before next visit Atypical chest pain 1025 82543 R07.89 Negative stress echo. No recurrence [id number] Pop Farley MD [place] [facility] [address] [place] [address] 07/28/2024 14:52:09 07/28/2024 15:26:43 Essential hypertension 66533591 I10 Now well controlled Hyperlipidemia 31480107 E78.5 LDL 77, Needs to keep LDL less than 70, and HDL more than 40.Will change to Crestor Osteoarthritis 218932215 M19.90 Heart murmur 03571876 R0 1.1 His last ECHO is similar as last year which showed trace MR and mild TR with borderline pulmonary pressure (PASP 35 mmHg).. Normal LV systolic function (LVEF 55-60%).re peat echo before next visit Atypical chest pain 1025 78037 R07.89 Negative stress echo. No recurrence Health Concerns Section Related Observation LastModified by Organization Detai ls LastModified Time None Recorded Concern Status LastModified by Organization Details LastModified Time None Recorded Advance Directives Directive None Recorded Payers Insurance Date Sequence Insurance Name Policy Number Policy English Covered Member ID English Member ID Guarantor Name 06/27/2023 3 [employer] - [employer] - PRIME () Cy P Paez [id number] Cy P Paez 08/09/2024 2 FOR LIFE ( - MEDICARE SUPPLEMENT) Cy P Paez [id number] Cy P Paez 08/09/2024 1 [place] Cy P Paez [id number] Cy P Paez 12/18/2021 1 [facility] Cy P Paez [id number] Cy P Paez Notes Date Note Type [...] 230. 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 No CP, SOB or [...] WBC 6.4, HGB 13.9, HCT 41.1, PLT 1090811/21/18 CMP: NA 143, K 4.6, CL 106, [...] ,TG 51 ,HDL 45 ,LDL 90 , -- SOD 143, K 4.6, CL 106, Co [...] 09/17/14, no significant change. Pop Farley MD [address] [place], [address], [facility] 11/28/2021 17:36:22 05/29/2022 [...] 230. 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 No CP, SOB or [...] WBC 6.4, HGB 13.9, HCT 41.1, PLT 84053 CMP: NA 143, K 4.6, CL 106, [...] 09/17/14, no significant change. Pop Farley MD [address] [place], [address], [facility] 05/29/2022 15:15:31 12/15/2022 [...] SE. He is pretty active since owns [employer] .denies any symptoms. No CP, SOB or [...] WBC 6.4, HGB 13.9, HCT 41.1, PLT 97435 CMP: NA 143, K 4.6, CL 106, [...] 09/17/14, no significant change. Pop Farley MD [address] [place], [address], [facility] 12/15/2022 14:17:46 08/06/2023 text/html [...] SE. He is pretty active since owns [employer] .denies any symptoms. No CP, SOB or [...] WBC 6.4, HGB 13.9, HCT 41.1, PLT 49640 CMP: NA 143, K 4.6, CL 106, [...] significant change. Pop Farley MD [address] [place], [address], [facility] 08/06/2023 16:15:21 07/28/2024 [...] WBC 6.4, HGB 13.9, HCT 41.1, PLT 95289/ CMP: NA 143, K 4.6, CL 106, [...] 09/17/14, no significant change. Pop Farley MD [address] [place], [address], [place] [facility] 07/28/2024 15:21:13
--- OUTSIDE RECORDS SUMMARY | 2024-09-14 16:09 | XMS_ITS | Continuity of Care Document ---
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 Location Location Details Encounter Type Encounter Number Reason For Visit Attending Provider ADM Date DC Date Status Disposition Source [facility] Outpatient Encounter [id number] 10/23 [facility]
--- OUTSIDE RECORDS SUMMARY | 2024-09-14 16:09 | XMS_ITS | Encounter Summary ---
Author Organization [facility] Address [address] [place] [id number] Care Team Providers Care Lithograph Press Operator Tinware Name Role Phone Pop Farley MD Unavailable [phone] Terrance Waters MD Primary Care Provider [phone] Encounter Details Date Type Department Care Team (Late st Contact Info) Description 08/11/2024 Prep for Procedure [facility] [place] [address] Terrance Li MD 3 [facility] [address] [place], [place] [id number] Social History Tobacco Use Types Packs/Day Years Used Date Smoking Tobacco: Never Smokeless Tobacco: Never Alcohol Use Standard Drinks/Week Comments Not Currently [...] on file documented as of this encounter Results * URINE BACTERIA CULTURE (08/11/2024 12:47 PM CDT) SPEC DESCRIPTION URINE CLEAN CATCH 08/11/2024 12:48 PM CDT [facility] SPECIAL REQUESTS NO SPECIAL REQUEST 08/11/2024 12:48 PM CDT [facility] CULTURE RESULT NO GROWTH 2 DAYS 08/13/2024 6:41 AM CDT [facility] URINE SPECIMEN OBTAINED BY CLEAN CATCH PROCEDURE / Unknown 08/11/2024 12:47 PM CDT 08/11/2024 12:49 PM CDT us Terrance Li MD MICROBIOLOGY - GENERAL OR DERABLES Final Result [facility] [address] [place] [address], [place] [phone] * (ABNORMAL) URINALYSIS (08/11/2024 12:47 PM CDT) SPECIMEN TYPE URINE CLEAN CATCH 08/11/2024 12:48 PM CDT [facility] COLOR (U) YELLOW 08/11/2024 1:57 PM CDT [facility] TRANSPARENCY CLEAR 08/11/2024 1:57 PM CDT [facility] SPECIFIC GRAVITY (U) 1.029 1.001 - 1.030 08/11/2024 1:57 PM CDT [facility] U PH 6.0 5.0 - 9.0 08/11/2024 1:57 PM CDT [facility] LEUKOCYTES (U) NEGATIVE NEGATIVE 08/11/2024 1:57 PM CDT [facility] NITRITES NEGATIVE NEGATIVE 08/11/2024 1:57 PM CDT [facility] PROTEIN RANDOM (U) NEGATIVE <30 MG/DL 08/11/2024 1:57 PM CDT [facility] GLUCOSE (U) NORMAL NORMAL MG/DL 08/11/2024 1:57 PM CDT [facility] KETONES MG/DL (U) NEGATIVE NEGATIVE MG/DL 08/11/2024 1:57 PM CDT [facility] UROBILINOGEN 2.0(A) NORMAL MG/DL 08/11/2024 1:57 PM CDT [facility] BILIRUBIN (U) NEGATIVE NEGATIVE MG/DL 08/11/2024 1:57 PM CDT [facility] BLOOD (U) NEGATIVE NEGATIVE 08/11/2024 1:57 PM CDT [facility] URINE SPECIMEN OBTAINED BY CLEAN CATCH PROCEDURE / Unknown 08/11/2024 12:47 PM CDT Terrance Li MD URINE ORDERABLES Final Re sult Performing Organization Address [facility]/ZIP Co de Phone Number [facility] [address] [place] [id number], [place] [phone] * PROTIME/INR, VENOUS (08/11/2024 12:47 PM CDT) PROTIME 11.4 10.2 - 12.9 SEC 08/11/2024 1:38 PM CDT [facility] INR 1.0 08/11/2024 1:38 PM CDT [facility] Comment: Recommended INR Therapeutic Goals: 2.0-3.0 Routine Therapy 2.5-3.5 Mechanical Prosthetic Valves (High Risk) 08/11/2024 12:4 7 PM CDT Terrance Li MD LABORATORY Final Res ult [facility] [address] [place] [address], [place] [phone] * PTT, PARTIAL THROMBOPLASTIN TIME (08/11/2024 12:47 PM CDT) PTT 32.3 25.1 - 36.5 SEC 08/11/2024 1:38 PM CDT [facility] 08/11/2024 12:4 7 PM CDT us Terrance Li MD LABORATORY Final Res ult [facility] [address] [place] [address], * (ABNORMAL) BASIC METABOLIC PANEL (08/11/2024 12:47 PM CDT) GLUCOSE 141(H) 70 - 99 MG/DL 08/11/2024 1:38 PM CDT [facility] BUN 23(H) 7 - 18 MG/DL 08/11/2024 1:38 PM CDT [facility] CREATININE S/P/B 1.09 0.7 - 1.3 MG/DL 08/11/2024 1:38 PM CDT [facility] SODIUM S/P/B 135(L) 136 - 145 MMOL/L 08/11/2024 1:38 PM CDT [facility] POTASSIUM S/P/B 3.8 3.5 - 5.1 MMOL/L 08/11/2024 1:38 PM CDT [facility] CHLORIDE S/P/B 109 97 - 115 MMOL/L 08/11/2024 1:38 PM CDT [facility] CO2 26.6 21 - 32 MMOL/L 08/11/2024 1:38 PM CDT [facility] CALCIUM S/P/B 9.2 8.5 - 10.1 MG/DL 08/11/2024 1:38 PM CDT [facility] ANION GAP NOT CALCULATED 2 - 10 MMOL/L 08/11/2024 1:38 PM CDT [facility] BUN CREATININE RATIO 21.1 6 - 26 08/11/2024 1:38 PM CDT [facility] GFR ESTIMATE 75(L) >90 ML/MIN/1. 73 M2 08/11/2024 1:38 PM CDT [facility] Comment: NOTE: eGFR is not [...] Terrance Li MD LABORATORY Final Res ult [facility] [address] [place] [address], * (ABNORMAL) CBC W/DIFF AUTOMATED (08/11/2024 12:47 PM CDT) WBC 8.06 4.5 - 11.0 x10'3/uL 08/11/2024 1:22 PM CDT [facility] RBC 4.41(L) 4.70 - 6.10 x10'6/uL 08/11/2024 1:22 PM CDT [facility] HGB 13.9(L) 14.0 - 18.0 G/DL 08/11/2024 1:22 PM CDT [facility] HCT 42.3(L) 43.0 - 54.0 % 08/11/2024 1:22 PM CDT [facility] MCV 95.9(H) 80.0 - 94.0 FL 08/11/2024 1:22 PM CDT [facility] MCH 31.5(H) 27.0 - 31.0 PG 08/11/2024 1:22 PM CDT [facility] MCHC 32.9 32.0 - 36.0 G/DL 08/11/2024 1:22 PM CDT [facility] RDW 12.6 11.5 - 14.5 % 08/11/2024 1:22 PM CDT [facility] PLT 227 130 - 400 x10'3/uL 08/11/2024 1:22 PM CDT [facility] MPV 10.4 9.3 - 12.2 FL 08/11/2024 1:22 PM CDT [facility] DIFFERENTIAL TYPE AUTOMATED DIFFERENTIAL 08/11/2024 1:22 PM CDT [facility] NEUTROPHILS % 69.0 % 08/11/2024 1:22 PM CDT [facility] LYMPHOCYTES % 17.5 % 08/11/2024 1:22 PM CDT [facility] MONOCYTES % 9.1 % 08/11/2024 1:22 PM CDT [facility] EOSINOPHILS 3.6 % 08/11/2024 1:22 PM CDT [facility] BASOPHILS 0.4 % 08/11/2024 1:22 PM CDT [facility] IMMATURE GRANS % 0.4 % 08/12/19 1:22 PM CDT [facility] ABS. NEUTROPHILS 5.57 1.80 - 7.70 x10'3/uL 08/11/2024 1:22 PM CDT [facility] ABS. LYMPHOCYTES 1.41 1.00 - 4.80 x10'3/uL 08/11/2024 1:22 PM CDT [facility] ABS. MONOCYTES 0.73 0.30 - 0.82 x10'3/uL 08/11/2024 1:22 PM CDT [facility] ABS. EOSINOPHILS 0.29 0.04 - 0.54 x10'3/uL 08/11/2024 1:22 PM CDT [facility] ABS. BASOPHILS 0.03 0.01 - 0.08 x10'3/uL 08/11/2024 1:22 PM CDT [facility] ABS. IMMATURE GRANULOCYTES 0.03 0.00 - 0.49 x10'3/uL 08/11/2024 1:22 PM CDT [facility] 08/11/2024 12:4 7 PM CDT us Terrance Li MD LABORATORY Final Res ult [facility] [address] [place] [address], documented in this encounter Visit Diagnoses Diagnosis Calcium kidney stone- Primary Calculus of kidney Benign prostate hyperplasia Unspecified hyperplasia of prostate without urinary obstruction and other lower urinary tract symptoms (LUTS) Erectile dysfunction due to arterial insufficiency Impotence of organic origin Cardiac murmur Undiagnosed cardiac murmurs documented in this encounter Care Teams Lithograph Press Operator Tinware Relationship Specialty Start Date End Date Terrance Waters MD [address] [facility] [address] [place] [id number] PCP - General FAMILY PRACTICE 08/11/24 Pop Farley MD [facility] [place] [address] Consulting Physician CARDIOVASCULAR DISEASE 08/11/24 documented as of this encounter
== END 2024-09-14 16:03 | disposition home or self-care (01) ==
PROVIDERS: Visit Provider Urology
DX: N20.0 Calculus of kidney (principal)
CPT/HCPCS: 74018